=== PATIENT | male | born 1985 | race Two or more races ===

== ENCOUNTER 2025-07-30 17:45 | Emergency (ER) | payer BC, MEDICAID, SELFPAY ==
[2025-07-30 17:46] VITALS: BP 113/76; PULSE 87; RESP 18; TEMP 37.1; O2SAT 97
[2025-07-30 18:06] VITALS: PULSE 91; RESP 18; O2SAT 97
--- NOTE | 2025-07-30 18:07 | PC.NURSE ---
Pt. here from home to room 7 for possible blood coming from G tube, when parents gave feeding today.
--- NOTE | 2025-07-30 18:30 | PC.NURSE ---
Pt. father is bedside, pt. father has a syringe with brown liquid content in it. Pt. father states that pt. has had bleeding stomach ulcers and that's what the liquid looked like. Krunal informed and states he will come talk to pt.'s father.
--- NOTE | 2025-07-30 18:39 | PC.NURSE ---
Pt. has a small amount of dried blood to dressing at G tube site. Pt.'s father states pt. is bed bound, father states that pt. had a BM yesterday, father states he gives pt. a small enema and pt. has a BM.
--- NOTE | 2025-07-30 18:59 | EDNOTE_ITS ---
ED General RME/HPI General Chief complaint: GI Bleed Stated complaint: G TUBE ISSUES Time Seen by Provider: 07/30/25 17:59 Arrival date/time: 07/30/25 17:45 Brown GI tube feeds HPI patient is developmentally delayed nonverbal. Father brings the patient in via EMS who reports stable vital signs and the patient has dark stranding in his G-tube. The father is concerned because the last time they had this he had a GI bleed including ulcers . Patient is afebrile nontoxic-appearing. Father reports last BM last night was normal in color, patient usually has a BM every 1 to 3 days. Onset of color change in gastric tube content was this morning and this evening. Related Data Home Medications ?Medication ?Instructions ?Recorded ?Confirmed famotidine 20 mg tablet (Pepcid) 20 mg feeding tube BI D #0 tabs 08/02/14 07/30/24 glycopyrrolate 2 mg tablet 2 mg feeding tube TID #0 ta bs 08/02/14 07/30/24 (Fernanda Frias) levetiracetam 100 mg/mL oral 1,500 mg feeding tube BID ##0 08/02/14 07/30/24 solution (Keppra) valproic acid (as sodium salt) 250 250 mg GT BID Seizu res #600 mL 10/12/15 07/30/24 mg/5 mL oral solution (valproic acid) lactulose 10 gram/15 mL oral 15 ml feeding tube QDAY 0 03/03/23 07/30/24 solution (Constulose) constipation promethazine-DM 6.25 mg-15 mg/5 mL 10 ml feeding tube TID cough 03/03/23 07/30/24 oral syrup amoxicillin 875 mg-potassium 875 tab feeding tube BID 07/30/24 07/30/24 clavulanate 125 mg tablet midodrine 10 mg tablet 10 mg feeding tube QHSPRN 07/30/24 Previous Rx's ?Medication ?Instructions ?Recorded acetaminophen 325 mg/10.15 mL oral 650 mg (20.3 mL) GT QID PRN Fever 11/19/18 solution > 100.4 #240 mL Allergies Allergy/AdvReac Type Severity Reaction Status Date / Time phenobarbital Allergy Unknown Verified 07/30/24 20:26 Quinolones Allergy Unknown Verified 07/30/24 20:26 Review of Systems Review of Systems ROS Unobtainable: unobtainable due to mental status Past Medical History Past Medical History NEUROLOGIC: Positive Seizures, Epilepsy and Cerebral Palsy CARDIAC: Positive Cardiac Disorders and Hypotension; Negative Congestive Heart Failure RESPIRATORY: Negative Chronic Obstructive Pulmonary Disease (COPD) or Asthma GASTROINTESTINAL: Positive Ulcer; Negative Gastrointestinal Disorders GENITOURINARY: Negative Genitourinary Disorders or Renal Disease MUSCULOSKELETAL: Negative Musculoskeletal Disorders ENT: Positive Blind ENDOCRINE: Negative Endocrine Disorders, Diabetes Mellitus Type 1 or Diabetes Mellitus Type 2 HEMATOLOGIC: Negative Blood Disorders or Sickle Cell Disease OTHER HISTORY: Positive Developmental Delay and Blood Transfusions Surgical History SURGICAL: Positive Abdominal Surgery and Gastrostomy; Negative Cardiac Surgery, Ear Surgery, Nephrectomy or Joint Replacement Social History SMOKING STATUS: Never smoker SECOND HAND EXPOSURE: No SUBSTANCE USE: does not use ED Exam Narrative Physical exam: [General: Appears not in any acute distress Head normocephalic HEENT: Within acceptable limits Neck is supple nontender Chest equal chest rise nontender to palpation Respiratory: Clear to auscultation no wheezes crackles or rubs CV: Rate rhythm is regular no murmurs rubs or clicks Abdomen is distended secondary to body habitus soft nontender no masses positive bowel sounds all 4 quadrants. Button G-tube in the left lower quadrant clean dry and intact small amount of erosion underneath the button tube with no exudate. Gastric contents pale brown to rust, very faintly guaiac positive. GI: Moderate rectal tone, vault is empty small amount of stool on the rectal wall is guaiac negative. Back: No CVA tenderness no spinous process tenderness from cervical spine thoracic and lumbar spine Skin: Intact no petechiae rash induration ulceration or crepitus Extremities: Flaccid secondary to condition. Neuro: Awake Course Course Course Narrative: At 1900 patient's case discussed with Dr. Galvan who wants labs to determine if the patient needs to be admitted or not cards are very faintly guaiac positive. Patient has unremarkable CBC with no leukocytosis or anemia. Discussed with Dr. Galvan states patient to follow-up outpatient basis. Unless there is severe bleeding get a referral to him. Quality Measures none Orders Category Date Time Status Saline [Insert IV] NOW Care 07/30/25 19:00 Active CBC Stat Lab 07/30/25 19:28 Completed CMP [Comprehensive Metabolic Panel] Stat Lab 07/30/25 19:28 Completed PT [Prothrombin Time with INR] Stat Lab 07/30/25 19:28 Completed PTT [Partial Thromboplastin Time] Stat Lab 07/30/25 19:28 Completed Vital Signs Vital signs: Vital Signs Temperature 98.8 F 07/30/25 17:46 Pulse Rate 87 07/30/25 17:46 Respiratory Rate 18 07/30/25 17:46 Blood Pressure 113/76 07/30/25 17:46 Pulse Oximetry (%) 97 07/30/25 17:46 Oxygen Delivery Method Room Air 07/30/25 17:46 Discharge Plan Plan Patient Disposition: HOME (Self Care) Patient condition on transfer: Stable Prescriptions/Referrals Prescriptions/Med Rec: No Action famotidine [Pepcid] 20 MG tablet 20 mg feeding tube BID Qty: 0 Patient Comments: TO SUPPRESS GASTRIC ACID SECRETION glycopyrrolate [Robinul Forte] 2 MG tablet 2 mg feeding tube TID Qty: 0 levetiracetam [Keppra] 100 MG/ML solution 1,500 mg feeding tube BID Qty: 0 valproic acid (as sodium salt) [valproic acid] 250 MG/5 ML solution 250 mg GT BID Qty: 600 acetaminophen 325 mg/10.15 mL Solution 650 mg GT QID PRN (Reason: Fever > 100.4) Qty: 240 0RF promethazine-DM 6.25-15 mg/5 mL syrup 10 ml feeding tube TID lactulose [Constulose] 10 gram/15 mL solution 15 ml feeding tube QDAY Patient Comments: TAKE 15 ML BY MOUTH ONCE DAILY FOR CONSTIPATION amoxicillin-pot clavulanate [Augmentin] 875-125 mg Tablet 875 tab feeding tube BID midodrine 10 mg Tablet 10 mg feeding tube QHSPRN Referrals: Balbir Castillo MD [Primary Care Provider, Family Practice] - In 1 week Ruben Galvan MD [Physician, Gastroenterology] - In 1 week Problem List Clinical Impression: History of gastric ulcer Patient/Caregiver Discharge Instructions Other Activity Instructions:: Watch the PEG tube, if there is bright red blood in large quantities return to the emergency room otherwise follow-up with your primary care doctor and get a referral to the above-mentioned GI specialist. Print Language: Sinhala Stand Alone Forms: Jayshree Award Info., Work/School Release, Patient Portal Info Letter PA/UTILIZATION MANAGER Supervising Physician ANGEL/UTILIZATION MANAGER Supervising Physician: Krunal Leung ENP [facility] Clinical Information Provided by patient, EMS and parent Medical Records Reviewed [facility] Meds/Rx Considered, not Ordered None Labs/Rad/Tests considered, not Ordered None Chronic Illness/Social Conditions Add or document further as needed: Cerebral palsy developmental delay. EKG EKG not done Lab Interpretation Lab(s) interpretation(s): CBC shows a mild leukocytosis 11.8 H&H within normal limits. Platelet count of 240. Coags within acceptable limits CMP shows no acute electrolyte imbalances no renal impairment transaminitis or T. bili elevation. Imaging Imaging interpretation: none Medication Administration(s) none Diagnosis Differential dx and/or dx ruled out: Upper GI bleed lower GI bleed, button G-tube bleeding Most likely dx, and/or detailed dx discussion: Button G-tube bleeding Dispositon Disposition: Discharge Home
[2025-07-30 19:30] VITALS: BP 116/75; PULSE 87; RESP 18; TEMP 37; O2SAT 96
[2025-07-30 19:41] LABS: Basophils # (Auto) 0.1 Thou/mm3 (0.0-0.2); Basophils % (Auto) 1 % (0-2.5); Eosinophils # (Auto) 0.0 Thou/mm3 (0.0-0.5); Eosinophils % (Auto) 0 % (0-10); Hematocrit 44.0 % (41.0-53.0); Hemoglobin 14.6 g/dL (13.5-16.0); Immature Granulocytes Auto 0.47 Thou/mm3 (0.00-0.00); Lymphocytes # (Auto) 3.9 Thou/mm3 (1.0-4.8); Lymphocytes % (Auto) 33 % (10-50); Mean Corpuscular HGB Conc 33.2 g/dl (31.0-37.0); Mean Corpuscular Hemoglobin 29.4 pg (25.0-35.0); Mean Corpuscular Volume 89 fL (80-100); Monocytes # (Auto) 1.1 Thou/mm3 (0.0-0.8); Monocytes % (Auto) 9 % (0-12); Neutrophils # (Auto) 6.2 Thou/mm3 (1.8-7.7); Neutrophils % (Auto) 53 % (37-80); Nucleated Red Blood Cell # 0.03 Thou/mm3 (0.00-0.00); Nucleated Red Blood Cell % 0 /100 WBC (0); Platelet Count 240 Thou/mm3 (140-440); RDW Standard Deviation 39.7 fL (35.1-43.9); Red Blood Count 4.97 Miln/mm3 (4.50-5.90); White Blood Count 11.8 Thou/mm3 (3.8-10.6)
[2025-07-30 20:05] LABS: INR 1.1 (0.9-1.3); Partial Thromboplastin Time 26.3 Seconds (22.0-36.0); Prothrombin Time 11.9 Seconds (9.0-12.2)
[2025-07-30 20:12] LABS: Alanine Aminotransferase 8 U/L (10-49); Albumin, Serum 4.3 gm/dL (3.5-5.0); Albumin/Globulin Ratio 1.2 (1.2-2.2); Alkaline Phosphatase 89 U/L (46-116); Anion Gap 10 (7-16); Aspartate Amino Transferase 16 U/L (0-34); BUN/Creatinine Ratio 16 Ratio (12-20); Bilirubin,Total 0.5 mg/dL (0.3-1.2); Blood Urea Nitrogen 11 mg/dL (9-23); Calcium 9.7 mg/dL (8.3-10.6); Calcium (Corrected) 9.7 mg/dL (8.5-10.1); Carbon Dioxide 28.5 mMol/L (20.0-31.0); Chloride 99 mMol/L (98-107); Creatinine (Component) 0.7 mg/dL (0.6-1.3); Globulin 3.6 gm/dL (2.3-3.5); Glucose 100 mg/dL (74-106); Osmolality,Calculated 273 (275-295); Potassium 4.3 mMol/L (3.4-5.1); Sodium 137 mMol/L (136-145); Total Protein 7.9 gm/dL (5.7-8.2); eGFR > 60 See Note
[2025-07-30 20:35] VITALS: BP 106/76; PULSE 95; RESP 20; TEMP 36.4; O2SAT 96
[2025-07-30 20:44] VITALS: BP 108/78; PULSE 88; RESP 18; TEMP 36.4; O2SAT 96
== END 2025-07-30 20:47 | disposition home or self-care (01) ==
PROVIDERS: Registered Nurse General Practice; Emergency Provider Emergency Medicine; PCP Family Medicine
DX: Z43.1 Encounter for attention to gastrostomy (principal); Z87.11 Personal history of peptic ulcer disease
CPT/HCPCS: 36415; 80053; 85025; 85610; 85730; 99283

== ENCOUNTER 2025-09-11 10:38 | Inpatient (IN) | payer BC, MEDICAID, SELFPAY ==
[2025-09-11] VITALS (11 sets, daily range): BP systolic 85–117; BP diastolic 57–75; PULSE 69–144; RESP 16–28; TEMP 36.2–39.7; O2SAT 85–97; BMI 20.7
--- NOTE | 2025-09-11 10:45 | PC.NURSE ---
Pt. here from home to room 7, pt. father called EMS for pt. being SOB since yesterday, pt. is SOB, non verbal, contracted and bed ridden. Pt. has a Gtube to left mid abdomen, pt. is hot to touch.
--- NOTE | 2025-09-11 10:51 | EKG_ITS ---
[facility] Test Date: 2025-09-11 Pat Name: NISHANT WHITEHEAD Department: Room: - Gender: Male Strawberry Grower: : 1985 Requested By: Krunal Aragon Order Number: [id number] Reading MD: Krunal Aragon Measurements Intervals Kipling Rate: 127 P: 34 NH: 100 QRS: 86 QRSD: 79 T: 63 QT: 290 QTc: 423 Interpretive Statements SINUS TACHYCARDIA WITH SHORT NH INTERVAL POSSIBLE LATERAL MYOCARDIAL INFARCTION , PROBABLY OLD [30 ms Q WAVE IN I/aVL/V5/V6] ABNORMAL RHYTHM ECG Compared to ECG 03/03/2023 22:08:50 Short NH interval now present Myocardial infarct finding still present /store/S0/[id number]/ecg/[id number].pdf
--- NOTE | 2025-09-11 10:51 | XR_ITS ---
EXAMINATION: AP chest single view TECHNIQUE: AP portable semiupright chest single view Date and time: September 11, 2025, 1116 hours, comparison September 05, 2024 INDICATIONS: Shortness of breath today. FINDINGS: Suspicious for early bilateral perihilar pneumonia. Normal heart size Prominent osteopenia IMPRESSION: Suspicious for early bilateral perihilar pneumonia
--- NOTE | 2025-09-11 10:57 | EDNOTE_ITS ---
ED General RME/HPI General Chief complaint: Shortness of Breath/Dyspnea Stated complaint: SOB Time Seen by Provider: 09/11/25 10:50 Arrival date/time: 09/11/25 10:38 CC: Wet cough fever HPI patient presents to the ER via EMS who report 85% oxygen saturations on room air. The patient is significantly developmentally delayed with cerebral palsy seizure disorder and left eye blindness who is coming to us from home who his family member noticed the symptoms starting yesterday. EMS report putting him on 4 L nasal cannula which bumped his oxygen saturations to 91 to 92%. Related Data Home Medications ?Medication ?Instructions ?Recorded ?Confirmed famotidine 20 mg tablet (Pepcid) 20 mg feeding tube BI D #0 tabs 08/02/14 07/30/24 glycopyrrolate 2 mg tablet 2 mg feeding tube TID #0 ta bs 08/02/14 07/30/24 (Fernanda Frias) levetiracetam 100 mg/mL oral 1,500 mg feeding tube BID ##0 08/02/14 07/30/24 solution (Keppra) valproic acid (as sodium salt) 250 250 mg GT BID Seizu res #600 mL 10/12/15 07/30/24 mg/5 mL oral solution (valproic acid) lactulose 10 gram/15 mL oral 15 ml feeding tube QDAY 0 03/03/23 07/30/24 solution (Constulose) constipation promethazine-DM 6.25 mg-15 mg/5 mL 10 ml feeding tube TID cough 03/03/23 07/30/24 oral syrup amoxicillin 875 mg-potassium 875 tab feeding tube BID 07/30/24 07/30/24 clavulanate 125 mg tablet midodrine 10 mg tablet 10 mg feeding tube QHSPRN 07/30/24 Previous Rx's ?Medication ?Instructions ?Recorded acetaminophen 325 mg/10.15 mL oral 650 mg (20.3 mL) GT QID PRN Fever 11/19/18 solution > 100.4 #240 mL Allergies Allergy/AdvReac Type Severity Reaction Status Date / Time phenobarbital Allergy Unknown Verified 09/11/25 10:51 Quinolones Allergy Unknown Verified 09/11/25 10:51 Review of Systems Review of Systems ROS Unobtainable: unobtainable due to mental status Past Medical History Past Medical History NEUROLOGIC: Positive Seizures, Epilepsy and Cerebral Palsy CARDIAC: Positive Cardiac Disorders and Hypotension; Negative Congestive Heart Failure RESPIRATORY: Negative Chronic Obstructive Pulmonary Disease (COPD) or Asthma GASTROINTESTINAL: Positive Ulcer; Negative Gastrointestinal Disorders GENITOURINARY: Negative Genitourinary Disorders or Renal Disease MUSCULOSKELETAL: Negative Musculoskeletal Disorders ENT: Positive Blind ENDOCRINE: Negative Endocrine Disorders, Diabetes Mellitus Type 1 or Diabetes Mellitus Type 2 HEMATOLOGIC: Negative Blood Disorders or Sickle Cell Disease OTHER HISTORY: Positive Developmental Delay and Blood Transfusions Surgical History SURGICAL: Positive Abdominal Surgery and Gastrostomy; Negative Cardiac Surgery, Ear Surgery, Nephrectomy or Joint Replacement Social History SMOKING STATUS: Never smoker SECOND HAND EXPOSURE: No SUBSTANCE USE: does not use ED Exam Narrative Physical exam: [General: Appears in discomfort Head normocephalic HEENT: Eyes: Right pupil is PERRLA, left eye is blind with opaque lens. Mouth pink dry membranes mouth breathing. Nose no rhinorrhea ears no otorrhea Neck: No LAD, no edema. Chest equal chest rise nontender to palpation Respiratory: Clear to auscultation no wheezes crackles or rubs CV: Rate rhythm is regular no murmurs rubs or clicks Abdomen is distended secondary to body habitus soft nontender no masses positive bowel sounds all 4 quadrants Back: No CVA tenderness no spinous process tenderness from cervical spine thoracic and lumbar spine Skin: Intact no petechiae rash induration ulceration or crepitus Extremities: Moving all extremity against resistance cap refill less than 2 seconds neurosensory intact Neuro: Awake alert oriented x3 Glascow coma 15 no focal deficits] Course Course Course Narrative: Review of the laboratories alts shows a leukocytosis sepsis with bilateral pneumonia. Patient is loaded with Keppra to prevent any seizures, cefepime was ordered as IV antibiotics secondary to sputum culture for Pseudomonas and his last admission for pneumonia in February 2025. The patient's clinical presentation laboratory findings and imaging discussed with Dr. Mcqueen attending, who agrees to accept the patient for admission. Quality Measures none Orders Category Date Time Status Bedside COVID-19 Antigen Test NOW Care 09/11/25 11:44 Active Head Rose Grower STAT Care 09/11/25 10:51 Active Continuous Pulse Oximetry STAT Care 09/11/25 10:51 Completed EKG (ED ONLY) *Do not use* NOW Care 09/11/25 10:51 Completed In and Out Catheter X1PRN Care 09/11/25 10:51 Completed Insert IV NOW Care 09/11/25 10:51 Active NPO STAT Care 09/11/25 10:51 Active Oronasopharyngeal suction PRN Care 09/11/25 11:00 Active Strict Intake and Output Routine Care 09/11/25 10:51 Ordered EKG (ED Only) Stat Exams 09/11/25 10:51 Draft XR chest 1V SEPSIS PROTOCOL Stat Exams 09/11/25 10:51 Completed ABG [Arterial Blood Gas] Stat Lab 09/11/25 11:11 Ordered B-Type Natriuretic Peptide Stat Lab 09/11/25 11:19 Completed Blood Culture (Lab) Stat Lab 09/11/25 11:19 Received CBC Stat Lab 09/11/25 11:19 Completed Comprehensive Metabolic Panel Stat Lab 09/11/25 11:19 Completed Influenza A & B Rapid Panel Stat Lab 09/11/25 11:44 Ordered LDH (Lactate Dehydrogenase) Stat Lab 09/11/25 11:19 Completed Lactate (Lactic Acid) Stat Lab 09/11/25 11:19 Results Lipase Stat Lab 09/11/25 11:19 Completed Magnesium Stat Lab 09/11/25 11:19 Completed Partial Thromboplastin Time Stat Lab 09/11/25 11:19 Completed Phosphorous Stat Lab 09/11/25 11:19 Completed Procalcitonin Stat Lab 09/11/25 11:19 Completed Prothrombin Time with INR Stat Lab 09/11/25 11:19 Completed Troponin I Stat Lab 09/11/25 11:19 Completed Urinalysis, C/S if Indicated Stat Lab 09/11/25 11:00 Received Acetaminophen Ivpb [Ofirmev Inj] Med 09/11/25 10:52 Discontinued 1,000 mg in 100 ml IV NOW Albuterol/Ipratr Rt Lisset [Duoneb Rt Lisset] Med 09/11/25 10:55 Discontinued 3 ml INH X1 ONE Cefepime Inj [Maxipime Inj] 1 gm Med 09/11/25 10:58 Discontinued SODIUM CHLORIDE 0.9% (Popper) [Ns 0.9% (P)] 50 ml IV X1 Ringers Lactated 1000 ml [Lactated Ringers] 1,845 ml Med 09/11/25 10:51 Discontinued IV 1,845 mls/hr cefTRIAXone/D5w 1gm IV premix [Rocephin/D5w 1gm IV Med 09/11/25 10:51 Discontinued premix] 50 ml IV X1 levETIRAcetam INJ [Keppra Inj] Med 09/11/25 10:53 Discontinued 1,500 mg IVP X1 ONE Oxygen Delivery NOW RT 09/11/25 10:51 Active Oxygen Delivery NOW RT 09/11/25 10:55 Active Vital Signs Vital signs: Vital Signs Temperature 103.4 F H 09/11/25 10:44 Pulse Rate 128 H 09/11/25 10:44 Respiratory Rate 25 H 09/11/25 10:44 Blood Pressure 94/69 09/11/25 10:44 Pulse Oximetry (%) 87 L 09/11/25 10:44 Oxygen Delivery Method Room Air 09/11/25 10:44 Discharge Plan Plan Patient Disposition: Other Care w/in Hosp ([facility]) Patient condition on transfer: Stable Prescriptions/Referrals Prescriptions/Med Rec: No Action famotidine [Pepcid] 20 MG tablet 20 mg feeding tube BID Qty: 0 Patient Comments: TO SUPPRESS GASTRIC ACID SECRETION glycopyrrolate [Robinul Forte] 2 MG tablet 2 mg feeding tube TID Qty: 0 levetiracetam [Keppra] 100 MG/ML solution 1,500 mg feeding tube BID Qty: 0 valproic acid (as sodium salt) [valproic acid] 250 MG/5 ML solution 250 mg GT BID Qty: 600 acetaminophen 325 mg/10.15 mL Solution 650 mg GT QID PRN (Reason: Fever > 100.4) Qty: 240 0RF promethazine-DM 6.25-15 mg/5 mL syrup 10 ml feeding tube TID lactulose [Constulose] 10 gram/15 mL solution 15 ml feeding tube QDAY Patient Comments: TAKE 15 ML BY MOUTH ONCE DAILY FOR CONSTIPATION amoxicillin-pot clavulanate [Augmentin] 875-125 mg Tablet 875 tab feeding tube BID midodrine 10 mg Tablet 10 mg feeding tube QHSPRN Referrals: Balbir Castillo MD [Primary Care Provider, Family Practice] - In 1 week Problem List Clinical Impression: Pneumonia, Sepsis Patient/Caregiver Discharge Instructions Print Language: Saudi Arabian Stand Alone Forms: Jayshree Award Info., Patient Portal Info Letter PA/FARMWORKER GENERAL Supervising Physician PA/FARMWORKER GENERAL Supervising Physician: Krunal Leung ENP [facility] Clinical Information Provided by: patient and EMS Medical Records reviewed [facility] and EMS Meds/Rx considered, not ordered None Labs/Rad/Tests considered, not ordered None Chronic Illness/Social Conditions Explain: Cerebral palsy developmental delay gastric ulcer left eye blindness seizure disorder EKG Interpretation EKG #1: EKG Interpretation: EKG performed at 1055 shows a ventricular rate of 127 GA interval 100 QRS of 79 QTc of 365 is sinus tachycardia. Labs Labs: interpreted by me Lab(s) Interpretation(s): CBC shows leukocytosis of 12.8 no anemia or thrombocytopenia Coags within acceptable limits CMP shows no significant electrolyte imbalances other than a glucose of 26, no renal impairment no transaminitis or T. bili elevation Lactic at 2.7 Procalcitonin 0.94 Lipase of 22 Troponin and BNP are unremarkable Imaging Imaging interpretation: interpreted by me Imaging Interpretation(s): Chest x-ray is read as suspicious for bilateral pneumonia. Medication Administration(s) Medication Administration History Discontinued Medications Albuterol/Ipratropium (Albuterol/Ipratropium (Duoneb) Rt Lisset 3 Ml Nebu) 3 ml INH X1 ONE Stop: 09/11/25 10:56 Last Admin: 09/11/25 11:24 Dose: 3 ml Documented By: MW Lactated Ringer's (Lactated Ringers) 1,845 mls @ 1,845 mls/hr 30 ml/kg infuse over 60 min (1845 ml) IV .Q1H ONE Stop: 09/11/25 11:50 Last Admin: 09/11/25 11:12 Dose: 1,845 mls/hr Documented By: ED Ceftriaxone Sodium/Dextrose (Rocephin/D5w 1gm Iv Premix) 50 mls @ 100 mls/hr IV X1 ONE Stop: 09/11/25 11:20 Acetaminophen (Ofirmev Inj) 1,000 mg in 100 mls @ 250 mls/hr IV NOW ONE Stop: 09/11/25 11:15 Last Admin: 09/11/25 11:37 Dose: 250 mls/hr Documented By: ED Cefepime HCl 1 gm/ Sodium (Chloride) 50 mls @ 100 mls/hr IV X1 ONE Stop: 09/11/25 11:27 Levetiracetam (Levetiracetam Inj 100 Mg/Ml Vial 5ml) 1,500 mg IVP X1 ONE Stop: 09/11/25 10:54 Last Admin: 09/11/25 11:44 Dose: 1,500 mg Documented By: ED
[2025-09-11] MEDS: ALBUTEROL/IPRATROPIUM (Duoneb) RT SOL 3 ML NEBU INH ×4 (11:24→22:49)
[2025-09-11 11:26] LABS: Lactate (Lactic Acid) 2.7 mMol/L (0.4-2.0)
[2025-09-11 11:27] LABS: Basophils # (Auto) 0.1 Thou/mm3 (0.0-0.2); Basophils % (Auto) 0 % (0-2.5); Eosinophils # (Auto) 0.0 Thou/mm3 (0.0-0.5); Eosinophils % (Auto) 0 % (0-10); Hematocrit 44.4 % (41.0-53.0); Hemoglobin 14.5 g/dL (13.5-16.0); Immature Granulocytes Auto 0.06 Thou/mm3 (0.00-0.00); Lymphocytes # (Auto) 2.2 Thou/mm3 (1.0-4.8); Lymphocytes % (Auto) 17 % (10-50); Mean Corpuscular HGB Conc 32.7 g/dl (31.0-37.0); Mean Corpuscular Hemoglobin 29.5 pg (25.0-35.0); Mean Corpuscular Volume 90 fL (80-100); Monocytes # (Auto) 2.6 Thou/mm3 (0.0-0.8); Monocytes % (Auto) 20 % (0-12); Neutrophils # (Auto) 7.9 Thou/mm3 (1.8-7.7); Neutrophils % (Auto) 62 % (37-80); Nucleated Red Blood Cell # 0.00 Thou/mm3 (0.00-0.00); Nucleated Red Blood Cell % 0 /100 WBC (0); Platelet Count 146 Thou/mm3 (140-440); RDW Standard Deviation 42.8 fL (35.1-43.9); Red Blood Count 4.92 Miln/mm3 (4.50-5.90); White Blood Count 12.8 Thou/mm3 (3.8-10.6)
[2025-09-11] MEDS: ACETAMINOPHEN IVPB 1,000 MG/100 ML VIAL 250 MG IV (11:37)
[2025-09-11] MEDS: levETIRAcetam INJ 100 MG/ML VIAL 5ML 1500 MG IVP ×2 (11:44→21:08)
[2025-09-11 11:45] LABS: B-Type Natriuretic Peptide 49 pg/mL (0-100)
[2025-09-11 11:49] LABS: Collection Type, Urine Clean Catch
[2025-09-11 11:54] LABS: INR 1.1 (0.9-1.3); Partial Thromboplastin Time 30.5 Seconds (22.0-36.0); Prothrombin Time 11.9 Seconds (9.0-12.2)
[2025-09-11 11:58] LABS: Alanine Aminotransferase < 7 U/L (10-49); Albumin, Serum 4.4 gm/dL (3.5-5.0); Albumin/Globulin Ratio 1.3 (1.2-2.2); Alkaline Phosphatase 67 U/L (46-116); Anion Gap 12 (7-16); Aspartate Amino Transferase 22 U/L (0-34); BUN/Creatinine Ratio 18 Ratio (12-20); Bilirubin,Total 0.7 mg/dL (0.3-1.2); Blood Urea Nitrogen 23 mg/dL (9-23); Calcium 9.3 mg/dL (8.3-10.6); Calcium (Corrected) 9.3 mg/dL (8.5-10.1); Carbon Dioxide 24.5 mMol/L (20.0-31.0); Chloride 101 mMol/L (98-107); Creatinine (Component) 1.3 mg/dL (0.6-1.3); Estimated Creatinine Clearance 61.0 mL/min (>60); Globulin 3.4 gm/dL (2.3-3.5); Glucose 126 mg/dL (74-106); LDH (Lactate Dehydrogenase) 174 U/L (120-246); Magnesium 2.1 mg/dL (1.6-2.6); Osmolality,Calculated 279 (275-295); Phosphorous 1.9 mg/dL (2.4-5.1); Potassium 4.1 mMol/L (3.4-5.1); Sodium 137 mMol/L (136-145); Total Protein 7.8 gm/dL (5.7-8.2); Troponin I < 0.020 ng/mL (0.0-0.045); eGFR > 60 See Note
[2025-09-11 11:59] LABS: Lipase 22 U/L (12-53); Procalcitonin 0.94 ng/ml (0.0-0.49)
[2025-09-11 12:03] LABS: Bacteria,Urine Rare; Bilirubin,Urine 1+ (Negative); Blood,Urine Negative (Negative); Color,Urine Drk-Yellow (Lt Yel-Yel); Culture Indicated,Urine Not Indicated; Glucose, Urine Negative (Negative); Ketones,Urine Negative (Negative); Leukocyte Esterase,Urine Negative (Negative); Nitrite,Urine Negative (Negative); PH,Urine 6.5 (5.0-7.0); Protein,Urine 1+ (Neg - Trace); RBC,Urine 9 /hpf (0-3); Specific Gravity,Urine 1.025 (1.001-1.035); Squamous Epithelial Cell,Urine < 1 /hpf (0-5); Urobilinogen,Urine 4.0 mg/dL (0.0-1.0); WBC,Urine 4 /hpf (0-5)
[2025-09-11] MEDS: CEFEPIME INJ 1 GM in SODIUM CHLORIDE 0.9% (Popper) 50 ML IV ×2 (12:04→13:59)
[2025-09-11 12:10] LABS: Clarity,Urine Hazy (Clear/Hazy)
[2025-09-11 12:41] LABS: Base Excess, Venous 0 (-3-3); O2 Saturation, Venous 83 % (96-97); PCO2, Venous 43 mmHg (36-56); PO2, Venous 49 mmHg (15-58); pH, Venous 7.38 (7.33-7.66)
[2025-09-11 13:11] LABS: Influenza A Ag Negative; Influenza B Ag Negative
--- NOTE | 2025-09-11 13:32 | ESHP_ITS ---
<Statement entered by Erickson Hernandez MD - 09/11/25 17:01> I have reviewed the note and agree with the resident's assessment & plan with exceptions as below. I have personally reviewed labs, imaging, home meds/prior records, examined the patient, formulated and discussed management plan with my attending 34-year-old male with past medical history of developmental delay, seizure disorders, left eye blindness, gastric ulcers, PEG tube, and cerebral palsy was admitted to the hospital on 09/11/2025 for concern for sepsis and acute hypoxic respiratory failure likely secondary to community-acquired pneumonia versus aspiration or pneumonia. Spoke with patient's mother through the phone as patient is nonverbal at baseline and she stated that around 2 days ago patient started coughing and his breathing sounded worse and that today he spiked a fever and they decided to bring him to the ER. Patient in the past has had sputum cultures and tracheal cultures which have both grown Pseudomonas therefore we will start patient on cefepime and azithromycin. Otherwise patient got sepsis boluses and does not seem to be hypoperfusing. Will repeat lactic acid and will follow-up on cultures as well. In summary: #Concern for sepsis #Acute hypoxic respiratory failure #Community-acquired pneumonia #Lactic acidosis Will continue to trend lactic Patient got 1.8 L of IV fluids in the ER Will start patient on cefepime and azithromycin. Will get sputum and blood cultures. Breathing treatments every 4 hours. Erickson Hernandez PGY2 Disclaimer: Even though this this note was dictated by speech recognition and even though it was carefully revised there may still be minor errors in obstetrical tech due to voice recognition software. Documentation for date of: 09/11/25 HPI History of Present Illness Chief complaint: Shortness of breath History of present illness: History of present illness: Patient is a 34 year old man with PMH of cerebral palsy (nonverbal), developmental delay, seizures, hypertension, GERD, left eye blindness, PEG tube, presenting to the ED on 09/11/25 for shortness of breath. Since yesterday morning, patient has had pneumonia-like symptoms (breathing issues, cough and febrile) per father, with O2 sats down to 83 on room air and BP down to 94/70 (normally 120/60-70) at home. Per father, he has had similar symptoms before. Of note, chart review revealed multiple instances of admission for acute hypoxic respiratory failure in which cultured samples (ET secretions 03/08, Sputum 03/07) showed Pseudomonas. ED course: Patient presented with O2 sats of 85% in ED; increased to 91-92% on 4L NC. Tachycardiac (128), tachypnic (25), and febrile (103.4) on admission. Labs show leukocytosis (12.8), lactate of 2.7, and Pro-Juwan is 0.94. Creatinine is 1.3 from patients previous baseline of 0.7, indicating acute kidney injury. CXR shows bilateral perihilar pneumonia. EKG shows sinus tachycardia with short PC interval. Bladder catheterization shows 15mL urine. ED exam shows tachypnea with labored shallow breaths. Patient given 1.8 L LR, loading dose of Keppra 1.5 g, DuoNebs, and cefepime in the ED. Patient admitted for sepsis in context of bilateral pneumonia. PMH: Cerebral palsy, developmental delay, seizures, hypertension, GERD PSH: Gastric tube placement, hip surgery at Allergies: phenobarbital, quinolones Social history: No alcohol, drugs, or tobacco Review of Systems Review of Systems Narrative Review of Systems: Note: all ROS taken from father as patient is nonverbal General: Denies fevers or chills HEENT: Denies congestion or sore throat Heart: Denies chest pain or palpitations Lungs: Endorses shortness of breath Abdomen: Denies diarrhea, nausea or vomiting, constipation, BRBPR, melena, has gastric tube placed Genitourinary: Denies frequency, urgency, dysuria, hematuria Musculoskeletal: Denies joint pain, denies muscular pain; bilteral contractures Neurology: Denies numbness, tingling; endorses cerebral palsy, developmental delay, seizure disorder ROS otherwise negative except what is mentioned above. Exam Vital Signs Temp Pulse Resp BP Pulse Ox O2 Del Method O2 Flow Rate 103.4 F H 82 16 94/69 92 L Room Air 10 09/11/25 10:44 09/11/25 11:24 09/11/25 11:24 09/11/25 10:44 09/11/25 11:24 09/11/25 10:44 09/11/25 11:24 Narrative Exam General: A/O x3, no acute distress, well-nourished, cerebral palsy, developmental delay, nonverbal at baseline Eyes: R pupil ERRL, L eye blindness, remaining vision grossly intact. Ears: No ear pain, no ear discharge, Hearing grossly intact. Nose: No nasal discharge. Mouth/Throat: Moist mucous membranes, no redness, no lesions. Neck: Neck supple, non-tender, no cervical lymphadenopathy. Lungs: bilateral upper lobe crackles, No accessory muscle use. Cardio: Normal S1/S2, regular rhythm, no murmurs, no JVD or carotid bruits. Abdomen: Soft, non-tender, no palpable masses, peristalsis present, no guarding or rebound. G tube present. Extremities: Contractures present bilaterally, no peripheral edema , non-tender, peripheral pulses present. Skin: No rashes, no lesions, warm to touch. Neuro: No change for neurological baseline. Psych: Developmental delay; nonverbal at baseline, unable to assess Results: Labs 09/12/25 05:10 09/12/25 05:10 Labs: Short CBC 09/11/25 Range/Units 11:19 WBC 12.8 H (3.8-10.6) Thou/mm3 Hgb 14.5 (13.5-16.0) g/dL Hct 44.4 (41.0-53.0) % Plt Count 146 (140-440) Thou/mm3 BMP 09/11/25 11:19 Sodium 137 Potassium 4.1 Chloride 101 Carbon Dioxide 24.5 BUN 23 Creatinine 1.3 Glucose 126 H Calcium 9.3 Cardiac Enzymes 09/11/25 Range/Units 11:19 Troponin I < 0.020 (0.0-0.045) ng/mL Liver Function 09/11/25 Range/Units 11:19 Total Bilirubin 0.7 (0.3-1.2) mg/dL AST 22 (0-34) U/L ALT < 7 L (10-49) U/L Alkaline Phosphatase 67 (46-116) U/L Albumin 4.4 (3.5-5.0) gm/dL Urine 09/11/25 Range/Units 11:00 Urine Color Drk-Yellow A (Lt Yel-Yel) Urine Clarity Hazy (Clear/Hazy) Urine pH 6.5 (5.0-7.0) Ur Specific [place] 1.025 (1.001-1.035) Urine Protein 1+ A (Neg - Trace) Urine Glucose (UA) Negative (Negative) ABG Interpretation ABG results: 09/11/25 12:35 VBG pH 7.38 VBG pCO2 43 VBG pO2 49 VBG Base Excess 0 Quality Measures Quality Measures none Medications Home Medications and Allergies Home Medications ?Medication ?Instructions ?Recorded ?Confirmed ?Type famotidine 20 mg tablet (Pepcid) 20 mg feeding tube BI D #0 tabs 08/02/14 09/11/25 History glycopyrrolate 2 mg tablet 2 mg feeding tube TID #0 ta bs 08/02/14 09/11/25 History (Robinul Forte) levetiracetam 100 mg/mL oral 1,500 mg feeding tube BID ##0 08/02/14 09/11/25 History solution (Keppra) valproic acid (as sodium salt) 250 875 mg G-tube BID S eizures #600 mL 10/12/15 09/12/25 History mg/5 mL oral solution (valproic acid) lactulose 10 gram/15 mL oral 15 ml feeding tube QDAY 0 03/03/23 09/11/25 History solution (Constulose) constipation furosemide 20 mg tablet 20 mg feeding tube .Q12pm 09/11/25 History metoprolol succinate 50 mg 50 mg PO QDAY 09/11/2508/17 History tablet,extended release 24 hr potassium chloride 8 mEq 8 meq feeding tube .Q12pm 09/11/25 History capsule,extended release midodrine 10 mg tablet 10 mg feeding tube HS PRN LO W 09/12/25 09/12/25 History BLOOD PRESSURE Allergies Allergy/AdvReac Type Severity Reaction Status Date / Time phenobarbital Allergy Unknown Verified 09/11/25 10:51 Quinolones Allergy Unknown Verified 09/11/25 10:51 Visit Medications Discontinued Medications Albuterol/Ipratropium (Albuterol/Ipratropium (Duoneb) Rt Lisset 3 Ml Nebu) 3 ml INH X1 ONE Stop: 09/11/25 10:56 Last Admin: 09/11/25 11:24 Dose: 3 ml Lactated Ringer's (Lactated Ringers) 1,845 mls @ 1,845 mls/hr 30 ml/kg infuse over 60 min (1845 ml) IV .Q1H ONE Stop: 09/11/25 11:50 Last Admin: 09/11/25 11:12 Dose: 1,845 mls/hr Ceftriaxone Sodium/Dextrose (Rocephin/D5w 1gm Iv Premix) 50 mls @ 100 mls/hr IV X1 ONE Stop: 09/11/25 11:20 Acetaminophen (Ofirmev Inj) 1,000 mg in 100 mls @ 250 mls/hr IV NOW ONE Stop: 09/11/25 11:15 Last Infusion: 09/11/25 12:01 Dose: Infused Cefepime HCl 1 gm/ Sodium (Chloride) 50 mls @ 100 mls/hr IV X1 ONE Stop: 09/11/25 11:27 Last Admin: 09/11/25 12:04 Dose: 100 mls/hr Levetiracetam (Levetiracetam Inj 100 Mg/Ml Vial 5ml) 1,500 mg IVP X1 ONE Stop: 09/11/25 10:54 Last Admin: 09/11/25 11:44 Dose: 1,500 mg Assessment & Plan Plan Patient is a 39-year-old male with past medical history of cerebral palsy (nonverbal), developmental delay, seizures, hypertension, GERD, left eye blindness, presenting to the ED on 09/11/25 for shortness of breath. Patient admitted 09/11/25 for sepsis in context of bilateral pneumonia. # Acute hypoxic respiratory failure and # Sepsis secondary to # Pneumonia (community-acquired versus aspirational) Patient was brought to the ED with shortness of breath when he had O2 with 85% on room air, and required 4 L to reach 91 to 92%. Chest x-ray in ED showed bilateral perihilar pneumonia; exam reveals significant apical crackles bilaterally. Patient's WBC count was 12.8 on admission; combined with tachycardia at 128, tachypnea at 25, temperature of 103.4, lactate of 2.7, and DIDI (creatinine on admission is 1.3, his baseline is 0.7), patient meets criteria for sepsis with multiple organ dysfunction syndrome, as he had a temperature above 100.4 on admission, was tachycardic and tachypneic, and had WBCs above 12,000; he also has a suspected source of infection, lactic acidosis, and evidence of 2 organs failing (lactic acidosis, and DIDI via creatinine). Plan: Azithromycin 500 IV daily and cefepime 2 g IV every 8 hours for suspected sepsis Trend lactate, CBC, CMP, mag, and Phos Sputum, blood, and urine cultures DuoNebs and chest physiotherapy ordered #Seizures #Hypertension #GERD #Cerebral palsy #Developmental delay Patient is on valproic acid and Keppra at home for seizures, as well as furosemide 20 and metoprolol succinate 50 for blood pressure, and famotidine 20 for GERD. Plan: Restart home keppra and valproate Hold BP meds in the context of patient being normotensive; monitor BP Protonix 40 BID Disposition: MedTele DVT prophylaxis: heparin 5000 subcu q8h GI prophylaxis: protonix 40 BID Diet: NPO Lines: PIV CODE STATUS: Full code This case was discussed with my attending physician, Dr. Mcqueen, and senior resident, Dr. Baeza. Dlae Villafuerte MD-PhD, PGY1 Attending Provider Attestation/Addendum Lyle, Ghazal Mcqueen DO, attest that I was physically present for the street portions of the service and evaluated the patient with the resident and I reviewed and discussed the case with the resident and agree with the resident's findings and plans of care as documented above Patient is a 34-year-old male with past medical cerebral palsy, developmental delay, seizures, hypertension, GERD, left eye blindness and PEG tube dependence who was brought to the ED due to labored breathing and fever that began overnight. Patient is bedbound and lives with his parents who take care of him. Father states that he did not notice any recent seizure-like activity or episodes of aspiration. Patient had been noted to have O2 saturation of 83% on room air and blood pressure of 94/70. He is also noted to have audible rhonchi. Patient has had frequent hospitalizations in the past due to respiratory failure and pneumonia. Previous sputum cultures have been noted to be positive for Pseudomonas. In the ED, he was noted to be tachypneic, tachycardic and febrile with a temperature 103.4. He has a leukocytosis of 12.8 and a lactic acid of 2.7. Procalcitonin is 0.94. Father states that patient has not had any recent hospitalizations or sick contacts at home. Chest x-ray shows bibasilar pneumonia. On exam, patient is noted to have significant rhonchi, right greater than left. He has noted to have a mild pink rash on his right upper extremity which his father states that was not there previously. Suspect possible heat rash. Patient is warm to touch and diaphoretic. He is currently on 4 L oxygen mask patient unable to follow commands, but moves upper extremities spontaneously. Bilateral lower extremities are contracted and atrophied. PEG tube in place, clean dry and intact. Abdomen is soft and nontender. In the ED, patient received about 2 L of IV fluids and was loaded with his home dose of Keppra due to concern for seizure in the setting of hypoxia. Will admit patient to med/tele for further workup and medical management of acute hypoxic respiratory failure secondary to atypical versus gram-negative pneumonia. Will place patient on azithromycin and cefepime, particularly due to concern for Pseudomonas. Will continue to titrate O2 as tolerated. Will give breathing treatments every 4 hours as needed. Will continue with IV fluid hydration and repeat lactic acid.
[2025-09-11 14:25] LABS: Reflex Lactate? Y
[2025-09-11 14:57] LABS: Lactate (Lactic Acid) 3.4 mMol/L (0.4-2.0)
[2025-09-11] MEDS: AZITHROMYCIN INJ 500 MG in SODIUM CHLORIDE 0.9% 250 ML 250 ML 250 MG IV (16:14)
[2025-09-11] MEDS: HEPARIN SOD INJ 5000 UNIT/ML VIAL SC ×2 (17:29→21:08)
[2025-09-11 17:30] LABS: Lactate (Lactic Acid) 2.4 mMol/L (0.4-2.0)
[2025-09-11] MEDS: SODIUM CHLORIDE 0.9% 1000 ML 1,000 ML 999 ML IV ×2 (17:49→23:05)
[2025-09-11 17:53] LABS: Reflex Lactate? Y
[2025-09-11] MEDS: SODIUM CHLORIDE 0.9% 1000 ML 1,000 ML 75 ML IV (17:53)
--- NOTE | 2025-09-11 19:30 | PC.RT ---
sputum collected and sent to lab
[2025-09-11] MEDS: HYDROcodone/APAP 5/325 TABLET 1 TAB PO (19:34)
--- NOTE | 2025-09-11 20:00 | PC.NURSE ---
RESPIRATORY THERAPIST IN THE ROOM.
[2025-09-11 20:28] LABS: Reflex Lactate? Y
[2025-09-11] MEDS: CEFEPIME INJ 2 GM in SODIUM CHLORIDE 0.9% (Popper) 50 ML IV (21:08)
[2025-09-11 21:21] LABS: Path Review Blood Smear Sent to Pathologist
[2025-09-11 21:40] LABS: Lactate (Lactic Acid) 2.4 mMol/L (0.4-2.0)
--- NOTE | 2025-09-11 22:25 | PC.NURSE ---
DR. LYNCH MADE AWARE PTS HR 146 FOR A FEW SECONDS, LAST TWO LACTIC ACID DRAWS 2.4.
--- NOTE | 2025-09-11 23:14 | PC.NURSE ---
DR. LYNCH AT BEDSIDE, VERBAL ORDERS GIVEN, READ BACK AND CARRIED OUT.
[2025-09-12] VITALS (17 sets, daily range): BP systolic 91–139; BP diastolic 64–80; PULSE 111–155; RESP 7–120; TEMP 36.2–38.7; O2SAT 89–99; BMI 20.7
[2025-09-12 00:38] LABS: Reflex Lactate? Y
[2025-09-12 00:55] LABS: Lactate (Lactic Acid) 2.0 mMol/L (0.4-2.0)
[2025-09-12 01:21] LABS: Anion Gap 11 (7-16); BUN/Creatinine Ratio 20 Ratio (12-20); Blood Urea Nitrogen 10 mg/dL (9-23); Calcium 8.1 mg/dL (8.3-10.6); Carbon Dioxide 22.7 mMol/L (20.0-31.0); Chloride 111 mMol/L (98-107); Creatinine (Component) 0.5 mg/dL (0.6-1.3); Estimated Creatinine Clearance 158.6 mL/min (>60); Glucose 90 mg/dL (74-106); Osmolality,Calculated 287 (275-295); Potassium 4.6 mMol/L (3.4-5.1); Sodium 145 mMol/L (136-145); eGFR > 60 See Note
[2025-09-12] MEDS: ALBUTEROL/IPRATROPIUM (Duoneb) RT SOL 3 ML NEBU INH ×6 (03:05→23:46)
[2025-09-12] MEDS: CEFEPIME INJ 2 GM in SODIUM CHLORIDE 0.9% (Popper) 50 ML IV ×3 (05:03→23:17)
[2025-09-12] MEDS: HYDROcodone/APAP 5/325 TABLET 1 TAB PO (05:03)
[2025-09-12] MEDS: HEPARIN SOD INJ 5000 UNIT/ML VIAL SC ×3 (05:03→21:18)
[2025-09-12] MEDS: ACETAMINOPHEN IVPB 1,000 MG/100 ML VIAL 250 MG IV (05:20)
[2025-09-12 05:37] LABS: Lactate (Lactic Acid) 2.3 mMol/L (0.4-2.0)
[2025-09-12 05:46] LABS: Basophils # (Auto) 0.1 Thou/mm3 (0.0-0.2); Basophils % (Auto) 1 % (0-2.5); Eosinophils # (Auto) 0.0 Thou/mm3 (0.0-0.5); Eosinophils % (Auto) 0 % (0-10); Hematocrit 37.1 % (41.0-53.0); Hemoglobin 11.8 g/dL (13.5-16.0); Immature Granulocytes Auto 0.08 Thou/mm3 (0.00-0.00); Lymphocytes # (Auto) 1.5 Thou/mm3 (1.0-4.8); Lymphocytes % (Auto) 17 % (10-50); Mean Corpuscular HGB Conc 31.8 g/dl (31.0-37.0); Mean Corpuscular Hemoglobin 29.3 pg (25.0-35.0); Mean Corpuscular Volume 92 fL (80-100); Monocytes # (Auto) 1.6 Thou/mm3 (0.0-0.8); Monocytes % (Auto) 18 % (0-12); Neutrophils # (Auto) 5.8 Thou/mm3 (1.8-7.7); Neutrophils % (Auto) 64 % (37-80); Nucleated Red Blood Cell # 0.00 Thou/mm3 (0.00-0.00); Nucleated Red Blood Cell % 0 /100 WBC (0); Platelet Count 117 Thou/mm3 (140-440); RDW Standard Deviation 43.6 fL (35.1-43.9); Red Blood Count 4.03 Miln/mm3 (4.50-5.90); White Blood Count 9.1 Thou/mm3 (3.8-10.6)
--- NOTE | 2025-09-12 05:55 | XR_ITS ---
EXAMINATION: AP chest single view TECHNIQUE: AP portable semiupright chest single view Date and time: September 12, 2025, 0605 hours INDICATIONS: Shortness of breath today FINDINGS: Normal heart size Extensive bilateral perihilar right basilar pneumonia Prominent osteopenia Reduced inspiratory effort IMPRESSION: Extensive bilateral pneumonia
--- NOTE | 2025-09-12 05:55 | EKG_ITS ---
[facility] Test Date: 2025-09-12 Pat Name: NISHANT WHITEHEAD Department: Room: S356A Gender: Male Compensation Coordinator: RTAWILDA : 1985 Requested By: Tianna Jackson Order Number: [id number] Reading MD: Tianna Jackson Measurements Intervals [place] Rate: 139 P: CO: QRS: 10 QRSD: 79 T: 58 QT: 290 QTc: 442 Interpretive Statements ATRIAL FLUTTER/TACHYCARDIA WITH RAPID VENTRICULAR RESPONSE LOW QRS VOLTAGE IN EXTREMITY LEADS POSSIBLE LATERAL MYOCARDIAL INFARCTION , PROBABLY OLD ABNORMAL RHYTHM ECG Compared to ECG 09/11/2025 10:55:59 Low QRS voltage now present Sinus tachycardia no longer present Short CO interval no longer present Myocardial infarct finding still present /store/S0/[id number].pdf
--- NOTE | 2025-09-12 05:56 | PD.RESEVENT ---
Documentation for date of: 09/12/25 Event Note Event Note: Rapid response was called at 05:53 for tachycardia sustained 140s, labored breathing. VS: HR 138, BP 111/77, spO2 94% on 7L. Fever 102 F. Patient is lying in bed comfortably on Oxymask. Gave IV Tylenol 1 g at 05:20. Ordered: EKG, ABG, albuterol x1, troponin, CXR. Given Mg IV 2g. EKG showed sinus tachy 130s, looks similar to previous EKG. Plan discussed with Dr. Rogers and Dr. Jayleen Jackson MD PGY1
[2025-09-12 06:05] LABS: Base Excess 0 (-3-3); HCO3 26 mEq/L (20-26); O2 Saturation 96 % (91-98); PCO2 49 mmHg (32.0-48.0); PO2 80 mmHg (83-108); pH, Arterial 7.34 (7.35-7.45)
[2025-09-12 06:08] LABS: Allen Test Performed/OK; Inspired O2, VO2 Liters 8 L/min; Puncture Site Right Radial
[2025-09-12 06:35] LABS: Alanine Aminotransferase < 7 U/L (10-49); Albumin, Serum 3.4 gm/dL (3.5-5.0); Albumin/Globulin Ratio 1.2 (1.2-2.2); Alkaline Phosphatase 49 U/L (46-116); Anion Gap 10 (7-16); Aspartate Amino Transferase 22 U/L (0-34); BUN/Creatinine Ratio 17 Ratio (12-20); Bilirubin,Total 0.7 mg/dL (0.3-1.2); Blood Urea Nitrogen 10 mg/dL (9-23); Calcium 8.2 mg/dL (8.3-10.6); Calcium (Corrected) 8.7 mg/dL (8.5-10.1); Carbon Dioxide 25.4 mMol/L (20.0-31.0); Cardiac Risk Estimate 5.1 RATIO (4.0-6.7); Chloride 110 mMol/L (98-107); Cholesterol 72 mg/dL (132-200); Creatinine (Component) 0.6 mg/dL (0.6-1.3); Estimated Creatinine Clearance 132.1 mL/min (>60); Globulin 2.9 gm/dL (2.3-3.5); Glucose 82 mg/dL (74-106); HDL Cholesterol 14 mg/dL (40-60); LDL Cholesterol,Calculated 19 mg/dL (0-130); Magnesium 1.8 mg/dL (1.6-2.6); Osmolality,Calculated 286 (275-295); Phosphorous 3.2 mg/dL (2.4-5.1); Potassium 4.2 mMol/L (3.4-5.1); Sodium 145 mMol/L (136-145); Total Protein 6.3 gm/dL (5.7-8.2); Triglycerides 197 mg/dL (30-150); eGFR > 60 See Note
[2025-09-12 06:47] LABS: Troponin I < 0.020 ng/mL (0.0-0.045)
[2025-09-12] MEDS: levETIRAcetam INJ 100 MG/ML VIAL 5ML 1500 MG IVP ×2 (08:23→20:52)
[2025-09-12 08:34] LABS: Reflex Lactate? Y
[2025-09-12] MEDS: Magnesium Sulfate 2 GM Ivpb 2 GM/50 ML BAG IV (09:04)
[2025-09-12 09:17] LABS: Lactic Acid, 3 HR 2.7 mMol/L (0.4-2.0)
--- NOTE | 2025-09-12 10:38 | PC.DIETICIAN ---
Nutrition prescription When indicated, consider: Ensure Plus HP (vanilla) at 20 ml/hr via PEG tube by pump. Advance 10 ml every 8 hrs to goal rate of 40 ml/hr x 24 hrs. If no IV fluids, water flushes of 40 ml/hr (or per MD).
[2025-09-12] MEDS: VALPROIC ACID SYRUP 250 MG/5 ML UDC 875 MG GT ×2 (11:21→21:08)
[2025-09-12 12:41] LABS: Lactate (Lactic Acid) 1.3 mMol/L (0.4-2.0)
[2025-09-12] MEDS: guaiFENesin SYRUP 200 MG/10 ML UDC 100 MG GT ×2 (13:27→21:18)
--- NOTE | 2025-09-12 13:37 | PD.RESPRO ---
Documentation for date of: 09/12/25 Subjective Subjective Interval history: Patient was seen examined bedside this morning. Overnight patient had a rapid response called due to tachycardia and fever 102. Patient received IV Tylenol and lactic acid was ordered and EKG. This morning patient has not had fevers, but continues to be tachycardic. Placed patient on high flow nasal cannula she was saturating 89 to lower 90s on oxy mask at 11 L therefore transition to high flow nasal cannula. Patient's blood pressure has been stable and lactic acid has down trended. WBCs are downtrending. Patient's chest x-ray overnight that showed worsening patient's pneumonia, will get deep suctioning. No signs of fluid overload status on physical exam. Blood cultures have been noted in the first 24 hours, sputum culture still pending, but Gram stain did show WBCs and occasional GPC's and GNR's. Will continue with cefepime and azithromycin for now. Exam Vital Signs Temp Pulse Resp BP Pulse Ox O2 Del Method O2 Flow Rate 97.8 F 128 H 28 H 139/80 H 98 Oxy Mask 30 09/12/25 07:49 09/12/25 12:00 09/12/25 10:54 09/12/25 07:49 09/12/25 10:54 09/12/25 07:49 09/12/25 10:54 FiO2 80 09/12/25 10:54 Narrative Exam PE with RN, Alethea, at bedside. General: A/O x3, no acute distress, well-nourished, cerebral palsy, developmental delay, nonverbal at baseline Eyes: R pupil ERRL, L eye blindness with injected conjunctiva Ears: No o ear discharge, Hearing grossly intact. Nose: No nasal discharge. Mouth/Throat: Moist mucous membranes, no redness, no lesions. Neck: Neck supple, non-tender, no cervical lymphadenopathy. Lungs: Bilateral rales with audible upper airway congestion, No accessory muscle use. Cardio: Normal S1/S2, regular rhythm, no murmurs, no JVD Abdomen: Soft, non-tender, no palpable masses, peristalsis present, no guarding or rebound. G tube present. Extremities: Contractures present bilaterally, no peripheral edema , non-tender, peripheral pulses present. : No scrotal swelling Skin: No rashes, no lesions, warm to touch. Neuro: No change for neurological baseline. Psych: Developmental delay; nonverbal at baseline, unable to assess Objective Labs 09/12/25 05:10 09/12/25 05:10 Labs: Laboratory Results - last 24 hr 09/11/25 09/11/25 09/11/25 11:19 14:32 17:25 WBC RBC Hgb Hct MCV MCH MCHC RDW Std Deviation Plt Count Neut % (Auto) Lymph % (Auto) [place] % (Auto) Eos % (Auto) Baso % (Auto) Neut # (Auto) Lymph # (Auto) [place] # (Auto) Eos # (Auto) Baso # (Auto) Immature Gran # (Auto) Absolute Nucleated RBC Immature Gran % Nucleated RBC % Smear Path Review Sent to Pathologist Puncture Site ABG pH ABG pCO2 ABG pO2 ABG HCO3 ABG O2 Saturation ABG Base Excess Oxygen Liter Flow Sodium Potassium Chloride Carbon Dioxide Anion Gap BUN Creatinine Estim Creat Clear Calc eGFR BUN/Creatinine Ratio Glucose Calculated Osmolality Lactic Acid 3.4 H 2.4 H Calcium Corrected Calcium Phosphorus Magnesium Total Bilirubin AST ALT Alkaline Phosphatase Troponin I Total Protein Albumin Globulin Albumin/Globulin Ratio Triglycerides Cholesterol LDL Cholesterol, Calc HDL Cholesterol Cholesterol/HDL Ratio 09/11/25 09/12/25 09/12/25 21:15 00:48 05:10 WBC 9.1 RBC 4.03 L Hgb 11.8 L D Hct 37.1 L MCV 92 MCH 29.3 MCHC 31.8 RDW Std Deviation 43.6 Plt Count 117 L Neut % (Auto) 64 Lymph % (Auto) 17 [place] % (Auto) 18 H Eos % (Auto) 0 Baso % (Auto) 1 Neut # (Auto) 5.8 Lymph # (Auto) 1.5 [place] # (Auto) 1.6 H Eos # (Auto) 0.0 Baso # (Auto) 0.1 Immature Gran # (Auto) 0.08 H Absolute Nucleated RBC 0.00 Immature Gran % 1 H Nucleated RBC % 0 Smear Path Review Puncture Site ABG pH ABG pCO2 ABG pO2 ABG HCO3 ABG O2 Saturation ABG Base Excess Oxygen Liter Flow Sodium 145 145 Potassium 4.6 D 4.2 Chloride 111 H 110 H Carbon Dioxide 22.7 25.4 Anion Gap 11 10 BUN 10 10 Creatinine 0.5 L D 0.6 Estim Creat Clear Calc 158.6 132.1 eGFR > 60 > 60 BUN/Creatinine Ratio 20 17 Glucose 90 82 Calculated Osmolality 287 286 Lactic Acid 2.4 H 2.0 Calcium 8.1 L 8.2 L Corrected Calcium 8.7 Phosphorus 3.2 Magnesium 1.8 Total Bilirubin 0.7 AST 22 ALT < 7 L Alkaline Phosphatase 49 D Troponin I < 0.020 Total Protein 6.3 Albumin 3.4 L D Globulin 2.9 Albumin/Globulin Ratio 1.2 Triglycerides 197 H Cholesterol 72 L LDL Cholesterol, Calc 19 HDL Cholesterol 14 L Cholesterol/HDL Ratio 5.1 09/12/25 09/12/25 09/12/25 05:18 05:59 09:09 WBC RBC Hgb Hct MCV MCH MCHC RDW Std Deviation Plt Count Neut % (Auto) Lymph % (Auto) [place] % (Auto) Eos % (Auto) Baso % (Auto) Neut # (Auto) Lymph # (Auto) [place] # (Auto) Eos # (Auto) Baso # (Auto) Immature Gran # (Auto) Absolute Nucleated RBC Immature Gran % Nucleated RBC % Smear Path Review Puncture Site Right Radial ABG pH 7.34 L ABG pCO2 49 H ABG pO2 80 L ABG HCO3 26 ABG O2 Saturation 96 ABG Base Excess 0 Oxygen Liter Flow 8 Sodium Potassium Chloride Carbon Dioxide Anion Gap BUN Creatinine Estim Creat Clear Calc eGFR BUN/Creatinine Ratio Glucose Calculated Osmolality Lactic Acid 2.3 H 2.7 H Calcium Corrected Calcium Phosphorus Magnesium Total Bilirubin AST ALT Alkaline Phosphatase Troponin I Total Protein Albumin Globulin Albumin/Globulin Ratio Triglycerides Cholesterol LDL Cholesterol, Calc HDL Cholesterol Cholesterol/HDL Ratio 09/12/25 12:29 WBC RBC Hgb Hct MCV MCH MCHC RDW Std Deviation Plt Count Neut % (Auto) Lymph % (Auto) [place] % (Auto) Eos % (Auto) Baso % (Auto) Neut # (Auto) Lymph # (Auto) [place] # (Auto) Eos # (Auto) Baso # (Auto) Immature Gran # (Auto) Absolute Nucleated RBC Immature Gran % Nucleated RBC % Smear Path Review Puncture Site ABG pH ABG pCO2 ABG pO2 ABG HCO3 ABG O2 Saturation ABG Base Excess Oxygen Liter Flow Sodium Potassium Chloride Carbon Dioxide Anion Gap BUN Creatinine Estim Creat Clear Calc eGFR BUN/Creatinine Ratio Glucose Calculated Osmolality Lactic Acid 1.3 Calcium Corrected Calcium Phosphorus Magnesium Total Bilirubin AST ALT Alkaline Phosphatase Troponin I Total Protein Albumin Globulin Albumin/Globulin Ratio Triglycerides Cholesterol LDL Cholesterol, Calc HDL Cholesterol Cholesterol/HDL Ratio ABG Interpretation ABG results: 09/11/25 09/12/25 12:35 05:59 ABG pH 7.34 L ABG pCO2 49 H ABG pO2 80 L ABG HCO3 26 ABG O2 Saturation 96 ABG Base Excess 0 VBG pH 7.38 VBG pCO2 43 VBG pO2 49 VBG Base Excess 0 Quality Measures Quality Measures none Assessment & Plan Assessment Current Active Medications: Generic Name Dose Route Start Last Admin Trade Name Freq PRN Reason Stop Dose Admin Acetaminophen 650 mg 09/11/25 13:27 Acetaminophen 325 Mg Tablet PO 10/11/25 13:26 Q6H PRN pain and fever >100.4 Hydrocodone Bitart/Acetaminophen 1 tab 09/11/25 13:27 09/12/25 05:03 Hydrocodone/Apap 5/325 Tablet PO 09/16/25 13:26 1 tab Q4HR PRN Administration PAIN SCALE 4-10(Mod-Sev Albuterol/Ipratropium 3 ml 09/11/25 15:00 09/12/25 10:46 Albuterol/Ipratropium (Duoneb) Rt Lisset 3 Ml Nebu INH 10/11/25 14:59 3 ml Q4HRRT KIKI Administration Guaifenesin 100 mg 09/12/25 14:00 09/12/25 13:27 Guaifenesin Syrup 200 Mg/10 Ml Udc GT 10/12/25 13:59 100 mg TID KIKI Administration Protocol Heparin Sodium (Porcine) 5,000 unit 09/11/25 14:00 09/12/25 13:27 Heparin Sod Inj 5000 Unit/Ml Vial SC 09/25/25 13:59 5,000 unit Q8HR KIKI Administration Azithromycin 500 mg/ Sodium 250 mls @ 250 mls/hr 09/12/25 21:00 Chloride IV 09/18/25 20:59 QDAY@2100 KIKI Cefepime HCl 2 gm/ Sodium 50 mls @ 100 mls/hr 09/11/25 22:00 09/12/25 13:27 Chloride IV 09/18/25 21:59 100 mls/hr Q8HR KIKI Administration Levetiracetam 1,500 mg 09/11/25 21:00 09/12/25 08:23 Levetiracetam Inj 100 Mg/Ml Vial 5ml IVP 10/11/25 20:59 1,500 mg Q12HR KIKI Administration Ondansetron HCl 4 mg 09/11/25 13:27 Ondansetron Inj 2 Mg/Ml Inj 2 Ml IVP 10/11/25 13:26 Q6H PRN NAUSEA OR VOMITING Protocol Pantoprazole Sodium 40 mg 09/11/25 13:45 09/12/25 08:23 Pantoprazole Inj 40 Mg Vial IVP 10/11/25 13:44 40 mg QDAY KIKI Administration Valproic Acid 875 mg 09/12/25 09:00 09/12/25 11:21 Valproic Acid Syrup 250 Mg/5 Ml Udc GT 10/12/25 08:59 875 mg BID KIKI Administration Plan 39-year-old male with past medical history of cerebral palsy (nonverbal), developmental delay, seizures, hypertension, GERD, left eye blindness, presenting to the ED on 09/11/25 for shortness of breath. Patient admitted 09/11/25 for sepsis in context of bilateral pneumonia. # Acute hypoxic respiratory failure and # Sepsis secondary to # Community acquired -Pneumonia versus aspirational #Lactic acidosis. resolved Patient was brought to the ED with shortness of breath when he had O2 with 85% on room air, and required 4 L to reach 91 to 92%. Chest x-ray in ED showed bilateral perihilar pneumonia; exam reveals significant apical crackles bilaterally. Patient's WBC count was 12.8 on admission; combined with tachycardia at 128, tachypnea at 25, temperature of 103.4, lactate of 2.7, and DIDI (creatinine on admission is 1.3, his baseline is 0.7), patient meets criteria for sepsis with multiple organ dysfunction syndrome, as he had a temperature above 100.4 on admission, was tachycardic and tachypneic, and had WBCs above 12,000; he also has a suspected source of infection, lactic acidosis, and evidence of 2 organs failing (lactic acidosis, and DIDI via creatinine). Plan: Azithromycin 500 IV daily and cefepime 2 g IV every 8 hours Sputum, blood, and urine cultures DuoNebs and chest physiotherapy every 4 hours Added guaifenesin #Seizures #Hypertension #GERD #Cerebral palsy #Developmental delay Patient is on valproic acid and Keppra at home for seizures, as well as furosemide 20 and metoprolol succinate 50 for blood pressure, and famotidine 20 for GERD. Plan: Continue home keppra and valproate Hold BP meds in the context of patient being normotensive; monitor BP Protonix 40 BID Disposition: Telemetry DVT prophylaxis: heparin 5000 subcu q8h GI prophylaxis: protonix 40 qday Diet: Start tube feeds Lines: PIV CODE STATUS: Full code Case disclosed with Attending Dr. Richar Hernandez PGY2 Disclaimer: Even though this this note was dictated by speech recognition and even though it was carefully revised there may still be minor errors in diabetic educator due to voice recognition software. Attending Provider Attestation/Addendum I, Ghazal Mcqueen DO, attest that I was physically present for the street portions of the service and evaluated the patient with the resident and I reviewed and discussed the case with the resident and agree with the resident's findings and plans of care as documented above Patient seen and evaluated this AM. Father is at bedside. Patient requiring 11L/ oxymask this AM and continues to have scattered rhonchi in b/l lung dean, right worse than left. Will add mucolytics and increase chest PT to every four hours with breathing treatments. He continues to have fevers this AM. F/u sputum cultures and continue with current management. Will place pt on HFNC due to increasing oxygen demand and for increase positive pressure
[2025-09-12] MEDS: AZITHROMYCIN INJ 500 MG in SODIUM CHLORIDE 0.9% 250 ML 250 ML 250 MG IV (21:03)
[2025-09-13] VITALS (17 sets, daily range): BP systolic 85–99; BP diastolic 50–67; PULSE 89–121; RESP 11–23; TEMP 36.3–38.3; O2SAT 88–100
[2025-09-13] MEDS: ALBUTEROL/IPRATROPIUM (Duoneb) RT SOL 3 ML NEBU INH ×6 (03:40→22:38)
[2025-09-13] MEDS: HEPARIN SOD INJ 5000 UNIT/ML VIAL SC ×3 (05:12→21:10)
[2025-09-13] MEDS: guaiFENesin SYRUP 200 MG/10 ML UDC 100 MG GT ×3 (05:13→21:09)
[2025-09-13] MEDS: CEFEPIME INJ 2 GM in SODIUM CHLORIDE 0.9% (Popper) 50 ML IV ×3 (05:16→22:55)
[2025-09-13 05:26] LABS: Basophils # (Auto) 0.0 Thou/mm3 (0.0-0.2); Basophils % (Auto) 0 % (0-2.5); Eosinophils # (Auto) 0.0 Thou/mm3 (0.0-0.5); Eosinophils % (Auto) 0 % (0-10); Hematocrit 31.1 % (41.0-53.0); Hemoglobin 9.8 g/dL (13.5-16.0); Immature Granulocytes Auto 0.05 Thou/mm3 (0.00-0.00); Lymphocytes # (Auto) 2.0 Thou/mm3 (1.0-4.8); Lymphocytes % (Auto) 23 % (10-50); Mean Corpuscular HGB Conc 31.5 g/dl (31.0-37.0); Mean Corpuscular Hemoglobin 29.4 pg (25.0-35.0); Mean Corpuscular Volume 93 fL (80-100); Monocytes # (Auto) 0.8 Thou/mm3 (0.0-0.8); Monocytes % (Auto) 9 % (0-12); Neutrophils # (Auto) 5.8 Thou/mm3 (1.8-7.7); Neutrophils % (Auto) 67 % (37-80); Nucleated Red Blood Cell # 0.00 Thou/mm3 (0.00-0.00); Nucleated Red Blood Cell % 0 /100 WBC (0); Platelet Count 140 Thou/mm3 (140-440); RDW Standard Deviation 44.4 fL (35.1-43.9); Red Blood Count 3.33 Miln/mm3 (4.50-5.90); White Blood Count 8.6 Thou/mm3 (3.8-10.6)
[2025-09-13 06:22] LABS: Alanine Aminotransferase < 7 U/L (10-49); Albumin, Serum 3.2 gm/dL (3.5-5.0); Albumin/Globulin Ratio 1.3 (1.2-2.2); Alkaline Phosphatase 49 U/L (46-116); Anion Gap 9 (7-16); Aspartate Amino Transferase 23 U/L (0-34); BUN/Creatinine Ratio 28 Ratio (12-20); Bilirubin,Total 0.4 mg/dL (0.3-1.2); Blood Urea Nitrogen 14 mg/dL (9-23); Calcium 8.1 mg/dL (8.3-10.6); Calcium (Corrected) 8.7 mg/dL (8.5-10.1); Carbon Dioxide 27.0 mMol/L (20.0-31.0); Chloride 108 mMol/L (98-107); Creatinine (Component) 0.5 mg/dL (0.6-1.3); Estimated Creatinine Clearance 158.6 mL/min (>60); Globulin 2.5 gm/dL (2.3-3.5); Glucose 90 mg/dL (74-106); Osmolality,Calculated 287 (275-295); Potassium 3.8 mMol/L (3.4-5.1); Sodium 144 mMol/L (136-145); Total Protein 5.7 gm/dL (5.7-8.2); eGFR > 60 See Note
[2025-09-13] MEDS: levETIRAcetam INJ 100 MG/ML VIAL 5ML 1500 MG IVP ×2 (09:47→21:09)
[2025-09-13] MEDS: VALPROIC ACID SYRUP 250 MG/5 ML UDC 875 MG GT ×2 (09:50→21:09)
[2025-09-13] MEDS: METOPROLOL TARTRATE 25 MG TABLET 12.5 MG GT ×2 (12:31→21:08)
[2025-09-13] MEDS: ACETAMINOPHEN 325 MG TABLET 650 MG PO (12:32)
--- NOTE | 2025-09-13 12:54 | ESPR_ITS ---
<Statement entered by Erickson Hernandez MD - 09/13/25 13:57> I have reviewed the note and agree with the resident's assessment & plan with exceptions as below. I have personally reviewed labs, imaging, home meds/prior records, examined the patient, formulated and discussed management plan with my attending Patient was seen and examined at bedside this morning. No acute overnight events. Patient seems to be improving and his lung auscultation do sound better today, still some mild rhonchi bilaterally with some upper airway congestion. Currently on 25 L at 50% FiO2 via high flow nasal cannula. Saturating well. WBCs continue to downtrend. Sputum cultures did grow GNR therefore we will continue with antibiotics until blood and sputum cultures result. Start patient on metoprolol to tartrate 12.5 mg twice daily as patient is still tachycardic. Erickson Hernandez PGY2 Disclaimer: Even though this this note was dictated by speech recognition and even though it was carefully revised there may still be minor errors in thoroughbred horse farm manager due to voice recognition software. Documentation for date of: 09/13/25 Subjective Subjective Interval history: Patient seen at bedside; no acute overnight events. Rales improved, but still present; on 25L at 50% FiO2 in AM, from 25L at 60% FiO2 previously. Sputum culture showed GNRs; BCx showed no growth at 48hours. Exam Vital Signs Temp Pulse Resp BP Pulse Ox O2 Del Method O2 Flow Rate 101.0 F H 120 H 18 99/63 93 L High Flow Nasal Cannula 25 09/13/25 12:32 09/13/25 12:31 09/13/25 12:00 09/13/25 12:31 09/13/25 12:00 09/13/25 12:00 09/13/25 12:00 FiO2 50 09/13/25 12:00 Narrative Exam General: A/O x3, no acute distress, well-nourished, cerebral palsy, developmental delay, nonverbal at baseline Eyes: R pupil ERRL, L eye blindness with injected conjunctiva Ears: No ear discharge, Hearing grossly intact. Nose: No nasal discharge. Mouth/Throat: Moist mucous membranes, no redness, no lesions. Neck: Neck supple, non-tender, no cervical lymphadenopathy. Lungs: Improving bilateral rales with audible upper airway congestion, No accessory muscle use. Cardio: Normal S1/S2, regular rhythm, no murmurs, no JVD Abdomen: Soft, non-tender, no palpable masses, peristalsis present, no guarding or rebound. G tube present. Extremities: Contractures present bilaterally, no peripheral edema , non-tender, peripheral pulses present. : No scrotal swelling Skin: No rashes, no lesions, warm to touch. Neuro: No change for neurological baseline. Psych: Developmental delay; nonverbal at baseline, unable to assess Objective Labs 09/13/25 05:10 09/13/25 05:10 Labs: Laboratory Results - last 24 hr 09/13/25 05:10 WBC 8.6 RBC 3.33 L Hgb 9.8 L D Hct 31.1 L MCV 93 MCH 29.4 MCHC 31.5 RDW Std Deviation 44.4 H Plt Count 140 Neut % (Auto) 67 Lymph % (Auto) 23 [place] % (Auto) 9 Eos % (Auto) 0 Baso % (Auto) 0 Neut # (Auto) 5.8 Lymph # (Auto) 2.0 [place] # (Auto) 0.8 Eos # (Auto) 0.0 Baso # (Auto) 0.0 Immature Gran # (Auto) 0.05 H Absolute Nucleated RBC 0.00 Immature Gran % 1 H Nucleated RBC % 0 Sodium 144 Potassium 3.8 Chloride 108 H Carbon Dioxide 27.0 Anion Gap 9 BUN 14 Creatinine 0.5 L Estim Creat Clear Calc 158.6 eGFR > 60 BUN/Creatinine Ratio 28 H Glucose 90 Calculated Osmolality 287 Calcium 8.1 L Corrected Calcium 8.7 Total Bilirubin 0.4 AST 23 ALT < 7 L Alkaline Phosphatase 49 Total Protein 5.7 Albumin 3.2 L Globulin 2.5 Albumin/Globulin Ratio 1.3 ABG Interpretation ABG results: 09/11/25 09/12/25 12:35 05:59 ABG pH 7.34 L ABG pCO2 49 H ABG pO2 80 L ABG HCO3 26 ABG O2 Saturation 96 ABG Base Excess 0 VBG pH 7.38 VBG pCO2 43 VBG pO2 49 VBG Base Excess 0 Quality Measures Quality Measures none Assessment & Plan Assessment Current Active Medications: Generic Name Dose Route Start Last Admin Trade Name Freq PRN Reason Stop Dose Admin Acetaminophen 650 mg 09/11/25 13:27 09/13/25 12:32 Acetaminophen 325 Mg Tablet PO 10/11/25 13:26 650 mg Q6H PRN Administration pain and fever >100.4 Hydrocodone Bitart/Acetaminophen 1 tab 09/11/25 13:27 09/12/25 05:03 Hydrocodone/Apap 5/325 Tablet PO 09/16/25 13:26 1 tab Q4HR PRN Administration PAIN SCALE 4-10(Mod-Sev Albuterol/Ipratropium 3 ml 09/11/25 15:00 09/13/25 10:02 Albuterol/Ipratropium (Duoneb) Rt Lisset 3 Ml Nebu INH 10/11/25 14:59 3 ml Q4HRRT KIKI Administration Guaifenesin 100 mg 09/12/25 14:00 09/13/25 05:13 Guaifenesin Syrup 200 Mg/10 Ml Udc GT 10/12/25 13:59 100 mg TID KIKI Administration Protocol Heparin Sodium (Porcine) 5,000 unit 09/11/25 14:00 09/13/25 05:12 Heparin Sod Inj 5000 Unit/Ml Vial SC 09/25/25 13:59 5,000 unit Q8HR KIKI Administration Azithromycin 500 mg/ Sodium 250 mls @ 250 mls/hr 09/12/25 21:00 09/12/25 21:03 Chloride IV 09/18/25 20:59 250 mls/hr QDAY@2100 KIKI Administration Cefepime HCl 2 gm/ Sodium 50 mls @ 100 mls/hr 09/11/25 22:00 09/13/25 05:16 Chloride IV 09/18/25 21:59 100 mls/hr Q8HR KIKI Administration Levetiracetam 1,500 mg 09/11/25 21:00 09/13/25 09:47 Levetiracetam Inj 100 Mg/Ml Vial 5ml IVP 10/11/25 20:59 1,500 mg Q12HR KIKI Administration Metoprolol Tartrate 12.5 mg 09/13/25 11:45 09/13/25 12:31 Metoprolol Tartrate 25 Mg Tablet GT 10/13/25 11:44 12.5 mg BID KIKI Administration Ondansetron HCl 4 mg 09/11/25 13:27 Ondansetron Inj 2 Mg/Ml Inj 2 Ml IVP 10/11/25 13:26 Q6H PRN NAUSEA OR VOMITING Protocol Pantoprazole Sodium 40 mg 09/11/25 13:45 09/13/25 09:48 Pantoprazole Inj 40 Mg Vial IVP 10/11/25 13:44 40 mg QDAY KIKI Administration Valproic Acid 875 mg 09/12/25 09:00 09/13/25 09:50 Valproic Acid Syrup 250 Mg/5 Ml Udc GT 10/12/25 08:59 875 mg BID KIKI Administration Plan 39-year-old male with past medical history of cerebral palsy (nonverbal), developmental delay, seizures, hypertension, GERD, left eye blindness, presenting to the ED on 09/11/25 for shortness of breath. Patient admitted 09/11/25 for sepsis in context of bilateral pneumonia. # Acute hypoxic respiratory failure and # Sepsis secondary to # Community acquired -Pneumonia versus aspirational #Lactic acidosis. resolved Patient was brought to the ED with shortness of breath when he had O2 with 85% on room air, and required 4 L to reach 91 to 92%. Chest x-ray in ED showed bilateral perihilar pneumonia; exam reveals significant apical crackles bilaterally. Patient's WBC count was 12.8 on admission; combined with tachycardia at 128, tachypnea at 25, temperature of 103.4, lactate of 2.7, and DIDI (creatinine on admission is 1.3, his baseline is 0.7), patient meets criteria for sepsis with multiple organ dysfunction syndrome, as he had a temperature above 100.4 on admission, was tachycardic and tachypneic, and had WBCs above 12,000; he also has a suspected source of infection, lactic acidosis, and evidence of 2 organs failing (lactic acidosis, and DIDI via creatinine). Sputum culture showed GNRs; BCx showed no growth at 48hours. Plan: Azithromycin 500 IV daily and cefepime 2 g IV every 8 hours Sputum, blood, and urine cultures DuoNebs and chest physiotherapy every 4 hours Added guaifenesin #Tachycardia Patient has HR 128 on admission; was 120 on 09/13/25 at 12:31 Plan: Metoprolol tartrate 12.5 started; HR 95 on 09/13/25 at 14:33 #Seizures #Hypertension #GERD #Cerebral palsy #Developmental delay Patient is on valproic acid and Keppra at home for seizures, as well as furosemide 20 and metoprolol succinate 50 for blood pressure, and famotidine 20 for GERD. Plan: Continue home keppra and valproate Hold BP meds in the context of patient being normotensive; monitor BP Protonix 40 BID Disposition: Telemetry DVT prophylaxis: heparin 5000 subcu q8h GI prophylaxis: protonix 40 qday Diet: Ensure Plus High Protein @ 20mL/hr via PEG tube, advance to 40ml/hr; water flushes of 40ml/hr if no IV fluids Lines: PIV CODE STATUS: Full code This case was discussed with my attending physician, Dr. Mcqueen, and senior resident, Dr. Baeza. Dale Villafuerte MD-PhD, PGY1 Attending Provider Attestation/Addendum I, Ghazal Mqcueen, DO, attest that I was physically present for the street portions of the service and evaluated the patient with the resident and I reviewed and discussed the case with the resident and agree with the resident's findings and plans of care as documented above Patient seen and evaluated this AM. He remains on HFNC with flow of 25Lmin and Fio2 of 50%. Afebrile overnight. Patient remains tachycardic, but noted that he takes metoprolol at home. Will restart at this time. Rhonchi in bilateral lung dean are much improved. Patient is resting comfortably. Will continue with breathing treatments and chest PT. Sputum cultures positive for GNR. pending final cultures and ssensitivities to further narrow abx.
--- NOTE | 2025-09-13 14:31 | PC.SS ---
Patient has cerebral palsy, is developmentally delayed, non verbal and he has a peg tube. Patient has a dx: seizures. SS spoke to patient's mother. [place] speaking only. staff interpreter assisted. Patient is total care and resides at home. He uses a wheelchair, has 02 and receives peg feedings which are mailed to them. Patient is connected to [facility]. Both mother and father make all medical decisions. Patient's father transports him to appointments. PCP: Dr. Carri Castillo. Patient also follows with a Bid Manager and Neurologist. Pharmacy: [facility]. Discharge plan is to return home. Alt medical decision maker: Fara rosales,
[2025-09-13] MEDS: AZITHROMYCIN INJ 500 MG in SODIUM CHLORIDE 0.9% 250 ML 250 ML 250 MG IV (21:08)
[2025-09-14] VITALS (16 sets, daily range): BP systolic 94–107; BP diastolic 59–70; PULSE 87–110; RESP 15–23; TEMP 36.1–37.8; O2SAT 88–98
[2025-09-14] MEDS: ALBUTEROL/IPRATROPIUM (Duoneb) RT SOL 3 ML NEBU INH ×6 (02:17→23:37)
[2025-09-14] MEDS: HEPARIN SOD INJ 5000 UNIT/ML VIAL SC (05:11)
[2025-09-14] MEDS: CEFEPIME INJ 2 GM in SODIUM CHLORIDE 0.9% (Popper) 50 ML IV ×3 (05:12→22:19)
[2025-09-14] MEDS: guaiFENesin SYRUP 200 MG/10 ML UDC 100 MG GT ×3 (05:12→21:12)
[2025-09-14 06:18] LABS: Basophils # (Auto) 0.0 Thou/mm3 (0.0-0.2); Basophils % (Auto) 0 % (0-2.5); Eosinophils # (Auto) 0.0 Thou/mm3 (0.0-0.5); Eosinophils % (Auto) 0 % (0-10); Hematocrit 36.9 % (41.0-53.0); Hemoglobin 11.8 g/dL (13.5-16.0); Immature Granulocytes Auto 0.14 Thou/mm3 (0.00-0.00); Lymphocytes # (Auto) 2.1 Thou/mm3 (1.0-4.8); Lymphocytes % (Auto) 29 % (10-50); Mean Corpuscular HGB Conc 32.0 g/dl (31.0-37.0); Mean Corpuscular Hemoglobin 29.0 pg (25.0-35.0); Mean Corpuscular Volume 91 fL (80-100); Monocytes # (Auto) 0.6 Thou/mm3 (0.0-0.8); Monocytes % (Auto) 8 % (0-12); Neutrophils # (Auto) 4.4 Thou/mm3 (1.8-7.7); Neutrophils % (Auto) 61 % (37-80); Nucleated Red Blood Cell # 0.00 Thou/mm3 (0.00-0.00); Nucleated Red Blood Cell % 0 /100 WBC (0); Platelet Count 86 Thou/mm3 (140-440); RDW Standard Deviation 41.9 fL (35.1-43.9); Red Blood Count 4.07 Miln/mm3 (4.50-5.90); White Blood Count 7.2 Thou/mm3 (3.8-10.6)
[2025-09-14 06:42] LABS: Alanine Aminotransferase 11 U/L (10-49); Albumin, Serum 3.4 gm/dL (3.5-5.0); Albumin/Globulin Ratio 1.1 (1.2-2.2); Alkaline Phosphatase 81 U/L (46-116); Anion Gap 10 (7-16); Aspartate Amino Transferase 33 U/L (0-34); BUN/Creatinine Ratio 23 Ratio (12-20); Bilirubin,Total 0.2 mg/dL (0.3-1.2); Blood Urea Nitrogen 9 mg/dL (9-23); Calcium 8.5 mg/dL (8.3-10.6); Calcium (Corrected) 9.0 mg/dL (8.5-10.1); Carbon Dioxide 30.3 mMol/L (20.0-31.0); Chloride 104 mMol/L (98-107); Creatinine (Component) 0.4 mg/dL (0.6-1.3); Estimated Creatinine Clearance 198.2 mL/min (>60); Globulin 3.0 gm/dL (2.3-3.5); Glucose 100 mg/dL (74-106); Magnesium 2.0 mg/dL (1.6-2.6); Osmolality,Calculated 285 (275-295); Phosphorous 1.6 mg/dL (2.4-5.1); Potassium 4.0 mMol/L (3.4-5.1); Sodium 144 mMol/L (136-145); Total Protein 6.4 gm/dL (5.7-8.2); eGFR > 60 See Note
[2025-09-14] MEDS: METOPROLOL TARTRATE 25 MG TABLET 12.5 MG GT ×2 (08:27→20:57)
[2025-09-14] MEDS: levETIRAcetam INJ 100 MG/ML VIAL 5ML 1500 MG IVP ×2 (08:28→20:34)
[2025-09-14] MEDS: POTASSIUM PHOS 22.5 MMOL in SODIUM CHLORIDE 0.9% 500 ML 500 ML 82.778 MMOL IV (08:33)
[2025-09-14] MEDS: VALPROIC ACID SYRUP 250 MG/5 ML UDC 875 MG GT ×2 (08:33→20:34)
[2025-09-14] MEDS: metroNIDAZOLE/NS 500 MG IVPB 500 MG/100 ML BAG 200 MG IV ×2 (10:34→21:12)
[2025-09-14] MEDS: METOCLOPRAMIDE INJ 5 MG/ML VIAL 2 ML IVP ×2 (12:45→17:46)
--- NOTE | 2025-09-14 15:18 | ESPR_ITS ---
<Statement entered by Erickson Hernandez MD - 09/14/25 15:39> I have reviewed the note and agree with the resident's assessment & plan with exceptions as below. I have personally reviewed labs, imaging, home meds/prior records, examined the patient, formulated and discussed management plan with my attending Patient was seen and examined at bedside morning. No acute overnight events. Patient yesterday afternoon and today in the morning did spike low-grade fevers, but is less tachycardic and other vital signs are stable. Patient's O2 requirements are also downtrending and he is currently on 20 L with an FiO2 of 45. It was noted that the patient had some discharge in her mouth which looked like the tube feeds therefore stopped tube feeds patient could not possibly having acid reflux and some vomiting therefore to decrease risk of aspiration and start Reglan and will start tube feeds at half the rate at this time. Otherwise patient clinically looks better and still pending sputum cultures final results. Added Flagyl for anaerobic coverage. Erickson Hernandez PGY2 Disclaimer: Even though this this note was dictated by speech recognition and even though it was carefully revised there may still be minor errors in customer service technician due to voice recognition software. Documentation for date of: 09/14/25 Subjective Subjective Interval history: Seen and examined at bedside today; no acute events overnight. In the morning, patient spiked a low-grade fever, and appeared diaphoretic. O2 requirements have decreased; he is currently on 20 L and 45% FiO2. Also saw liquid in mouth that look like tube feeds; thus, stopped tube feeds until tonight. Will restart tube feeds at half rate with Reglan to prevent aspiration. Exam Vital Signs Temp Pulse Resp BP Pulse Ox O2 Del Method O2 Flow Rate 99.9 F 99 20 107/70 95 High Flow Nasal Cannula 20 09/14/25 08:00 09/14/25 15:04 09/14/25 15:04 09/14/25 08:27 09/14/25 15:04 09/14/25 08:00 09/14/25 15:04 FiO2 45 09/14/25 15:04 Narrative Exam General: A/O x3, no acute distress, well-nourished, cerebral palsy, developmental delay, nonverbal at baseline Eyes: R pupil ERRL, L eye blindness with injected conjunctiva Ears: No ear discharge, Hearing grossly intact. Nose: No nasal discharge. Mouth/Throat: Moist mucous membranes, no redness, no lesions. Tube feed like appearing material coming from mouth. Neck: Neck supple, non-tender, no cervical lymphadenopathy. Lungs: Improving bilateral rales with audible upper airway congestion, No accessory muscle use. Cardio: Normal S1/S2, regular rhythm, no murmurs, no JVD Abdomen: Soft, non-tender, no palpable masses, peristalsis present, no guarding or rebound. G tube present. Extremities: Contractures present bilaterally, no peripheral edema , non-tender, peripheral pulses present. : No scrotal swelling Skin: No rashes, no lesions, forehead was feverish in the a.m. Neuro: No change for neurological baseline. Psych: Developmental delay; nonverbal at baseline, unable to assess Objective Labs 09/15/25 05:02 09/15/25 05:02 Labs: Laboratory Results - last 24 hr 09/14/25 04:37 WBC 7.2 RBC 4.07 L Hgb 11.8 L D Hct 36.9 L MCV 91 MCH 29.0 MCHC 32.0 RDW Std Deviation 41.9 Plt Count 86 L D Neut % (Auto) 61 Lymph % (Auto) 29 [place] % (Auto) 8 Eos % (Auto) 0 Baso % (Auto) 0 Neut # (Auto) 4.4 Lymph # (Auto) 2.1 [place] # (Auto) 0.6 Eos # (Auto) 0.0 Baso # (Auto) 0.0 Immature Gran # (Auto) 0.14 H Absolute Nucleated RBC 0.00 Immature Gran % 2 H Nucleated RBC % 0 Sodium 144 Potassium 4.0 Chloride 104 Carbon Dioxide 30.3 Anion Gap 10 BUN 9 Creatinine 0.4 L Estim Creat Clear Calc 198.2 eGFR > 60 BUN/Creatinine Ratio 23 H Glucose 100 Calculated Osmolality 285 Calcium 8.5 Corrected Calcium 9.0 Phosphorus 1.6 L Magnesium 2.0 Total Bilirubin 0.2 L AST 33 ALT 11 Alkaline Phosphatase 81 D Total Protein 6.4 Albumin 3.4 L Globulin 3.0 Albumin/Globulin Ratio 1.1 L ABG Interpretation ABG results: 09/11/25 09/12/25 12:35 05:59 ABG pH 7.34 L ABG pCO2 49 H ABG pO2 80 L ABG HCO3 26 ABG O2 Saturation 96 ABG Base Excess 0 VBG pH 7.38 VBG pCO2 43 VBG pO2 49 VBG Base Excess 0 Quality Measures Quality Measures none Assessment & Plan Assessment Current Active Medications: Generic Name Dose Route Start Last Admin Trade Name Freq PRN Reason Stop Dose Admin Acetaminophen 650 mg 09/11/25 13:27 09/13/25 12:32 Acetaminophen 325 Mg Tablet PO 10/11/25 13:26 650 mg Q6H PRN Administration pain and fever >100.4 Hydrocodone Bitart/Acetaminophen 1 tab 09/11/25 13:27 09/12/25 05:03 Hydrocodone/Apap 5/325 Tablet PO 09/16/25 13:26 1 tab Q4HR PRN Administration PAIN SCALE 4-10(Mod-Sev Albuterol/Ipratropium 3 ml 09/11/25 15:00 09/14/25 15:04 Albuterol/Ipratropium (Duoneb) Rt Lisset 3 Ml Nebu INH 10/11/25 14:59 3 ml Q4HRRT KIKI Administration Guaifenesin 100 mg 09/12/25 14:00 09/14/25 14:27 Guaifenesin Syrup 200 Mg/10 Ml Udc GT 10/12/25 13:59 100 mg TID KIKI Administration Protocol Heparin Sodium (Porcine) 5,000 unit 09/11/25 14:00 09/14/25 05:11 Heparin Sod Inj 5000 Unit/Ml Vial SC 09/25/25 13:59 5,000 unit On Hold: 09/14/25 07:57 Q8HR KIKI Administration Cefepime HCl 2 gm/ Sodium 50 mls @ 100 mls/hr 09/11/25 22:00 09/14/25 14:28 Chloride IV 09/18/25 21:59 100 mls/hr Q8HR KIKI Administration Metronidazole 500 mg in 100 mls @ 200 mls/hr 09/14/25 10:11 09/14/25 13:59 Flagyl 500 Mg Iv IV 09/21/25 10:10 Not Given Q8HR KIKI Levetiracetam 1,500 mg 09/11/25 21:00 09/14/25 08:28 Levetiracetam Inj 100 Mg/Ml Vial 5ml IVP 10/11/25 20:59 1,500 mg Q12HR KIKI Administration Metoclopramide HCl 5 mg 09/14/25 12:00 09/14/25 12:45 Metoclopramide Inj 5 Mg/Ml Vial 2 Ml IVP 10/14/25 11:59 5 mg Q6HR KIKI Administration Protocol Metoprolol Tartrate 12.5 mg 09/13/25 11:45 09/14/25 08:27 Metoprolol Tartrate 25 Mg Tablet GT 10/13/25 11:44 12.5 mg BID KIKI Administration Ondansetron HCl 4 mg 09/11/25 13:27 Ondansetron Inj 2 Mg/Ml Inj 2 Ml IVP 10/11/25 13:26 Q6H PRN NAUSEA OR VOMITING Protocol Pantoprazole Sodium 40 mg 09/11/25 13:45 09/14/25 08:28 Pantoprazole Inj 40 Mg Vial IVP 10/11/25 13:44 40 mg QDAY KIKI Administration Valproic Acid 875 mg 09/12/25 09:00 09/14/25 08:33 Valproic Acid Syrup 250 Mg/5 Ml Udc GT 10/12/25 08:59 875 mg BID KIKI Administration Plan 39-year-old male with past medical history of cerebral palsy (nonverbal), developmental delay, seizures, hypertension, GERD, left eye blindness, presenting to the ED on 09/11/25 for shortness of breath. Patient admitted 09/11/25 for sepsis in context of bilateral pneumonia. # Acute hypoxic respiratory failure and # Sepsis secondary to # Pneumonia- aspiration potentially secondary to # GERD # Lactic acidosis. resolved Patient was brought to the ED with shortness of breath when he had O2 with 85% on room air, and required 4 L to reach 91 to 92%. Chest x-ray in ED showed bilateral perihilar pneumonia; exam reveals significant apical crackles bilaterally. Patient's WBC count was 12.8 on admission; combined with tachycardia at 128, tachypnea at 25, temperature of 103.4, lactate of 2.7, and DIDI (creatinine on admission is 1.3, his baseline is 0.7), patient meets criteria for sepsis with multiple organ dysfunction syndrome, as he had a temperature above 100.4 on admission, was tachycardic and tachypneic, and had WBCs above 12,000; he also has a suspected source of infection, lactic acidosis, and evidence of 2 organs failing (lactic acidosis, and DIDI via creatinine). Sputum culture showed GNRs; BCx showed no growth at 48hours. 09/14/2025 physical exam showed potential tube feed like material coming from the mouth; suggestive of aspiration. Plan: cefepime 2 g IV every 8 hours and metronidazole 500 every 8 hours Sputum, blood, and urine cultures DuoNebs and chest physiotherapy every 4 hours Added guaifenesin Resume tube feeds at night at half previous rate and with metoclopramide to prevent vomiting and subsequent aspiration Protonix 40 BID #Tachycardia Patient has HR 128 on admission; was 120 on 09/13/25 at 12:31 Plan: Metoprolol tartrate 12.5 started; HR 93 on 09/14/25 at 16:00 #Hypertension Patient is on furosemide 20 and metoprolol succinate 50 for blood pressure. Plan: Metoprolol tartrate 12.5 started; monitor BP #Seizures #Cerebral palsy #Developmental delay Patient is on valproic acid and Keppra at home for seizures. Plan: Continue home keppra and valproate Disposition: Telemetry DVT prophylaxis: heparin 5000 subcu q8h GI prophylaxis: protonix 40 qday Diet: Ensure Plus High Protein Lines: PIV CODE STATUS: Full code This case was discussed with my attending physician, Dr. Mcqueen, and senior resident, Dr. Baeza. Dale Villafuerte MD-PhD, PGY1 Attending Provider Attestation/Addendum I, Ghazal Mcqueen DO, attest that I was physically present for the street portions of the service and evaluated the patient with the resident and I reviewed and discussed the case with the resident and agree with the resident's findings and plans of care as documented above Patient seen and eval this a.m. He continues to have some low-grade fevers overnight. Patient had been noted to have some discharge from his mouth this morning, concern for aspiration. Tube feeds were slowed down. Will start on metoclopramide as well. Will also cover for anaerobes given patient's frequent history of pneumonia. Will add Flagyl to cefepime. Pending final cultures and sensitivities of sputum currently growing gram-negative rods. Bilateral rhonchi appears improved. Currently on 20 L/min and 45% FiO2 on high flow nasal cannula. Will continue to titrate O2 as tolerated.
--- NOTE | 2025-09-14 21:02 | PC.NURSE ---
spoke to dr valladares regarding tube feeds. states to keep tube feeds at 20ml/hr with 40ml/hr water flushes, do not increase overnight.
--- NOTE | 2025-09-14 21:07 | PC.NURSE ---
notified dr valladares about pt not having a bm since 09/11 per father. Father states pt usually goes 3 [address] states he will take a look at the chart and place orders if necessary.
[2025-09-15] VITALS (14 sets, daily range): BP systolic 88–102; BP diastolic 61–72; PULSE 84–105; RESP 18–24; TEMP 36.1–37.2; O2SAT 95–99; BMI 20.7
[2025-09-15] MEDS: METOCLOPRAMIDE INJ 5 MG/ML VIAL 2 ML IVP ×4 (00:03→17:39)
[2025-09-15] MEDS: ALBUTEROL/IPRATROPIUM (Duoneb) RT SOL 3 ML NEBU INH ×6 (03:20→23:08)
[2025-09-15] MEDS: guaiFENesin SYRUP 200 MG/10 ML UDC 100 MG GT ×3 (05:09→21:21)
[2025-09-15] MEDS: CEFEPIME INJ 2 GM in SODIUM CHLORIDE 0.9% (Popper) 50 ML IV (05:10)
[2025-09-15] MEDS: metroNIDAZOLE/NS 500 MG IVPB 500 MG/100 ML BAG 200 MG IV ×3 (06:10→21:23)
[2025-09-15 06:37] LABS: Basophils # (Auto) 0.1 Thou/mm3 (0.0-0.2); Basophils % (Auto) 1 % (0-2.5); Eosinophils # (Auto) 0.0 Thou/mm3 (0.0-0.5); Eosinophils % (Auto) 1 % (0-10); Hematocrit 32.9 % (41.0-53.0); Hemoglobin 10.6 g/dL (13.5-16.0); Immature Granulocytes Auto 0.46 Thou/mm3 (0.00-0.00); Lymphocytes # (Auto) 2.1 Thou/mm3 (1.0-4.8); Lymphocytes % (Auto) 33 % (10-50); Mean Corpuscular HGB Conc 32.2 g/dl (31.0-37.0); Mean Corpuscular Hemoglobin 29.5 pg (25.0-35.0); Mean Corpuscular Volume 92 fL (80-100); Monocytes # (Auto) 0.8 Thou/mm3 (0.0-0.8); Monocytes % (Auto) 12 % (0-12); Neutrophils # (Auto) 2.9 Thou/mm3 (1.8-7.7); Neutrophils % (Auto) 46 % (37-80); Nucleated Red Blood Cell # 0.00 Thou/mm3 (0.00-0.00); Nucleated Red Blood Cell % 0 /100 WBC (0); Platelet Count 117 Thou/mm3 (140-440); RDW Standard Deviation 42.5 fL (35.1-43.9); Red Blood Count 3.59 Miln/mm3 (4.50-5.90); White Blood Count 6.3 Thou/mm3 (3.8-10.6)
[2025-09-15 07:05] LABS: Alanine Aminotransferase 18 U/L (10-49); Albumin, Serum 3.1 gm/dL (3.5-5.0); Albumin/Globulin Ratio 1.1 (1.2-2.2); Alkaline Phosphatase 66 U/L (46-116); Anion Gap 8 (7-16); Aspartate Amino Transferase 34 U/L (0-34); BUN/Creatinine Ratio 35 Ratio (12-20); Bilirubin,Total 0.2 mg/dL (0.3-1.2); Blood Urea Nitrogen 14 mg/dL (9-23); Calcium 8.8 mg/dL (8.3-10.6); Calcium (Corrected) 9.5 mg/dL (8.5-10.1); Carbon Dioxide 32.7 mMol/L (20.0-31.0); Chloride 103 mMol/L (98-107); Creatinine (Component) 0.4 mg/dL (0.6-1.3); Estimated Creatinine Clearance 198.2 mL/min (>60); Globulin 2.9 gm/dL (2.3-3.5); Glucose 94 mg/dL (74-106); Magnesium 2.0 mg/dL (1.6-2.6); Osmolality,Calculated 287 (275-295); Phosphorous 2.5 mg/dL (2.4-5.1); Potassium 3.3 mMol/L (3.4-5.1); Sodium 144 mMol/L (136-145); Total Protein 6.0 gm/dL (5.7-8.2); eGFR > 60 See Note
[2025-09-15] MEDS: POTASSIUM CHLORIDE 10% 20 MEQ/15 ML UDC GT (08:33)
[2025-09-15] MEDS: levETIRAcetam INJ 100 MG/ML VIAL 5ML 1500 MG IVP ×2 (08:33→20:32)
[2025-09-15] MEDS: METOPROLOL TARTRATE 25 MG TABLET 12.5 MG GT (08:34)
[2025-09-15] MEDS: VALPROIC ACID SYRUP 250 MG/5 ML UDC 875 MG GT ×2 (08:37→20:42)
--- NOTE | 2025-09-15 09:30 | ESPR_ITS ---
Documentation for date of: 09/15/25 Senior resident attestation: Patient evaluated and examined at the bedside, plan of care discussed with rest of the team including my attending physician, except as noted. Patient is 39-year-old male developmentally delayed, wound PEG tube feeding, minimally responsive at baseline, father is present at the bedside, patient presents from home was initially started on IV antibiotics for community- acquired pneumonia, later due to concern for aspiration sputum culture growing gram-negative rods, antibiotic coverage was broadened, sputum cultures grew Proteus antibiotics de-escalated to ceftriaxone, continued improvement in oxygen requirements was previously on high flow, currently on 4 L nasal cannula. PEG tube feedings were withheld yesterday due to concern for aspiration, now started at low rate 20 mL/h, if patient tolerates and PEG tube feeds, if continued concern for aspiration, check for residuals before advancing feed rate. Quresh PGY3 Subjective Subjective Interval history: Patient was seen and examined at bedside today; no acute overnight events. Patient is now off high flow and on nasal cannula 4L. Sputum cultures grew Proteus mirabilis; patient was switched to ceftriaxone 1 g IV.. Exam Vital Signs Temp Pulse Resp BP Pulse Ox O2 Del Method O2 Flow Rate 97.7 F 91 20 102/66 95 Nasal Cannula 4 09/15/25 08:00 09/15/25 08:34 09/15/25 08:00 09/15/25 08:34 09/15/25 08:00 09/15/25 08:00 09/15/25 08:00 FiO2 45 09/14/25 21:27 Narrative Exam General: A/O x3, no acute distress, well-nourished, cerebral palsy, developmental delay, nonverbal at baseline Eyes: R pupil ERRL, L eye blindness Ears: No ear discharge, Hearing grossly intact. Nose: No nasal discharge. Mouth/Throat: Moist mucous membranes, no redness, no lesions. Neck: Neck supple, non-tender, no cervical lymphadenopathy. Lungs: minimal bilateral rales with reduced upper airway congestion, No accessory muscle use. Cardio: Normal S1/S2, regular rhythm, no murmurs, no JVD Abdomen: Soft, non-tender, no palpable masses, peristalsis present, no guarding or rebound. G tube present. Extremities: Contractures present bilaterally, no peripheral edema, non-tender, peripheral pulses present. : No scrotal swelling Skin: No rashes, no lesions Neuro: No change for neurological baseline. Psych: Developmental delay; nonverbal at baseline, unable to assess Objective Labs 09/16/25 05:53 09/16/25 05:53 Labs: Laboratory Results - last 24 hr 09/15/25 05:02 WBC 6.3 RBC 3.59 L Hgb 10.6 L Hct 32.9 L MCV 92 MCH 29.5 MCHC 32.2 RDW Std Deviation 42.5 Plt Count 117 L D Neut % (Auto) 46 Lymph % (Auto) 33 [place] % (Auto) 12 Eos % (Auto) 1 Baso % (Auto) 1 Neut # (Auto) 2.9 Lymph # (Auto) 2.1 [place] # (Auto) 0.8 Eos # (Auto) 0.0 Baso # (Auto) 0.1 Immature Gran # (Auto) 0.46 H Absolute Nucleated RBC 0.00 Immature Gran % 7 H Nucleated RBC % 0 Sodium 144 Potassium 3.3 L D Chloride 103 Carbon Dioxide 32.7 H Anion Gap 8 BUN 14 Creatinine 0.4 L Estim Creat Clear Calc 198.2 eGFR > 60 BUN/Creatinine Ratio 35 H Glucose 94 Calculated Osmolality 287 Calcium 8.8 Corrected Calcium 9.5 Phosphorus 2.5 Magnesium 2.0 Total Bilirubin 0.2 L AST 34 ALT 18 Alkaline Phosphatase 66 Total Protein 6.0 Albumin 3.1 L Globulin 2.9 Albumin/Globulin Ratio 1.1 L ABG Interpretation ABG results: 09/11/25 09/12/25 12:35 05:59 ABG pH 7.34 L ABG pCO2 49 H ABG pO2 80 L ABG HCO3 26 ABG O2 Saturation 96 ABG Base Excess 0 VBG pH 7.38 VBG pCO2 43 VBG pO2 49 VBG Base Excess 0 Quality Measures Quality Measures none Assessment & Plan Assessment Current Active Medications: Generic Name Dose Route Start Last Admin Trade Name Freq PRN Reason Stop Dose Admin Acetaminophen 650 mg 09/11/25 13:27 09/13/25 12:32 Acetaminophen 325 Mg Tablet PO 10/11/25 13:26 650 mg Q6H PRN Administration pain and fever >100.4 Hydrocodone Bitart/Acetaminophen 1 tab 09/11/25 13:27 09/12/25 05:03 Hydrocodone/Apap 5/325 Tablet PO 09/16/25 13:26 1 tab Q4HR PRN Administration PAIN SCALE 4-10(Mod-Sev Albuterol/Ipratropium 3 ml 09/11/25 15:00 09/15/25 06:21 Albuterol/Ipratropium (Duoneb) Rt Lisset 3 Ml Nebu INH 10/11/25 14:59 3 ml Q4HRRT KIKI Administration Guaifenesin 100 mg 09/12/25 14:00 09/15/25 05:09 Guaifenesin Syrup 200 Mg/10 Ml Udc GT 10/12/25 13:59 100 mg TID KIKI Administration Protocol Heparin Sodium (Porcine) 5,000 unit 09/11/25 14:00 09/14/25 05:11 Heparin Sod Inj 5000 Unit/Ml Vial SC 09/25/25 13:59 5,000 unit On Hold: 09/14/25 07:57 Q8HR KIKI Administration Cefepime HCl 2 gm/ Sodium 50 mls @ 100 mls/hr 09/11/25 22:00 09/15/25 05:10 Chloride IV 09/18/25 21:59 100 mls/hr Q8HR KIKI Administration Metronidazole 500 mg in 100 mls @ 200 mls/hr 09/14/25 10:11 09/15/25 06:10 Flagyl 500 Mg Iv IV 09/21/25 10:10 200 mls/hr Q8HR KIKI Administration Levetiracetam 1,500 mg 09/11/25 21:00 09/15/25 08:33 Levetiracetam Inj 100 Mg/Ml Vial 5ml IVP 10/11/25 20:59 1,500 mg Q12HR KIKI Administration Metoclopramide HCl 5 mg 09/14/25 12:00 09/15/25 05:09 Metoclopramide Inj 5 Mg/Ml Vial 2 Ml IVP 10/14/25 11:59 5 mg Q6HR KIKI Administration Protocol Metoprolol Tartrate 12.5 mg 09/13/25 11:45 09/15/25 08:34 Metoprolol Tartrate 25 Mg Tablet GT 10/13/25 11:44 12.5 mg BID KIKI Administration Ondansetron HCl 4 mg 10/27/25 13:27 Ondansetron Inj 2 Mg/Ml Inj 2 Ml IVP 10/11/25 13:26 Q6H PRN NAUSEA OR VOMITING Protocol Pantoprazole Sodium 40 mg 09/11/25 13:45 09/15/25 08:33 Pantoprazole Inj 40 Mg Vial IVP 10/11/25 13:44 40 mg QDAY KIKI Administration Valproic Acid 875 mg 09/12/25 09:00 09/15/25 08:37 Valproic Acid Syrup 250 Mg/5 Ml Udc GT 10/12/25 08:59 875 mg BID KIKI Administration Plan 39-year-old male with past medical history of cerebral palsy (nonverbal), developmental delay, seizures, hypertension, GERD, left eye blindness, presenting to the ED on 09/11/25 for shortness of breath. Patient admitted 09/11/25 for sepsis in context of bilateral pneumonia. # Acute hypoxic respiratory failure and # Sepsis secondary to # Pneumonia- aspiration potentially secondary to # GERD # Lactic acidosis. resolved Patient was brought to the ED with shortness of breath when he had O2 with 85% on room air, and required 4 L to reach 91 to 92%. Chest x-ray in ED showed bilateral perihilar pneumonia; exam reveals significant apical crackles bilaterally. Patient's WBC count was 12.8 on admission; combined with tachycardia at 128, tachypnea at 25, temperature of 103.4, lactate of 2.7, and DIDI (creatinine on admission is 1.3, his baseline is 0.7), patient meets criteria for sepsis with multiple organ dysfunction syndrome, as he had a temperature above 100.4 on admission, was tachycardic and tachypneic, and had WBCs above 12,000; he also has a suspected source of infection, lactic acidosis, and evidence of 2 organs failing (lactic acidosis, and DIDI via creatinine). Sputum culture showed GNRs; BCx showed no growth at 48hours. 09/14/2025 physical exam showed potential tube feed like material coming from the mouth; suggestive of aspiration. 09/15/25- Sputum culture showed Proteus mirabilis Plan: Ceftriaxone 1 g daily and metronidazole 500mg q8h Sputum, blood, and urine cultures DuoNebs and chest physiotherapy every 4 hours guaifenesin Tube feeds at night at half previous rate and with metoclopramide to prevent vomiting and subsequent aspiration Protonix 40 BID #Tachycardia Patient has HR 128 on admission; was 120 on 09/13/25 at 12:31 Plan: Metoprolol tartrate 12.5 started; HR 88 on 09/15/25 at 14:17 #Hypertension Patient is on furosemide 20 and metoprolol succinate 50 for blood pressure. Plan: Metoprolol tartrate 12.5; monitor BP #Seizures #Cerebral palsy #Developmental delay Patient is on valproic acid and Keppra at home for seizures. Plan: Continue home keppra and valproate Disposition: Med-Surg DVT prophylaxis: heparin 5000 subcu q8h GI prophylaxis: protonix 40 qday Diet: Ensure Plus High Protein Lines: PIV CODE STATUS: Full code This case was discussed with my attending physician, Dr. Mcqueen, and senior resident, Dr. Chowdhury. Dale Villafuerte MD-PhD, PGY1 Attending Provider Attestation/Addendum I, Ghazal Mcqueen, DO, attest that I was physically present for the street portions of the service and evaluated the patient with the resident and I reviewed and discussed the case with the resident and agree with the resident's findings and plans of care as documented above Patient seen and eval this a.m. Patient currently on 4L/NC. Patient is much more responsive and alert. He continues to have scattered rhonchi in b/l lung dean. Continue with chest physio, mucinex and breathing treatments. Proteus mirabilis noted in sputum cultures. Will de-escalated cefepime to rocephin and flagyl. Continue with rest of management and titrate O2 as tolerated. Tachycardia resolved.
[2025-09-15] MEDS: cefTRIAXone/D5w 1gm IV premix 1 GM/50 ML BAG IV (11:22)
--- NOTE | 2025-09-15 18:19 | PC.NURSE ---
Patient had multiple bowel movements today.
[2025-09-16] VITALS (14 sets, daily range): BP systolic 94–111; BP diastolic 64–73; PULSE 83–108; RESP 17–24; TEMP 36.1–36.4; O2SAT 94–100
[2025-09-16] MEDS: METOCLOPRAMIDE INJ 5 MG/ML VIAL 2 ML IVP ×4 (00:41→17:30)
[2025-09-16] MEDS: ALBUTEROL/IPRATROPIUM (Duoneb) RT SOL 3 ML NEBU INH ×6 (03:08→23:25)
[2025-09-16] MEDS: guaiFENesin SYRUP 200 MG/10 ML UDC 100 MG GT ×3 (05:25→21:20)
[2025-09-16] MEDS: metroNIDAZOLE/NS 500 MG IVPB 500 MG/100 ML BAG 200 MG IV ×3 (05:28→21:24)
[2025-09-16 06:17] LABS: Basophils # (Auto) 0.1 Thou/mm3 (0.0-0.2); Basophils % (Auto) 2 % (0-2.5); Eosinophils # (Auto) 0.0 Thou/mm3 (0.0-0.5); Eosinophils % (Auto) 0 % (0-10); Hematocrit 31.3 % (41.0-53.0); Hemoglobin 10.0 g/dL (13.5-16.0); Immature Granulocytes Auto 0.87 Thou/mm3 (0.00-0.00); Lymphocytes # (Auto) 1.7 Thou/mm3 (1.0-4.8); Lymphocytes % (Auto) 27 % (10-50); Mean Corpuscular HGB Conc 31.9 g/dl (31.0-37.0); Mean Corpuscular Hemoglobin 29.1 pg (25.0-35.0); Mean Corpuscular Volume 91 fL (80-100); Monocytes # (Auto) 0.7 Thou/mm3 (0.0-0.8); Monocytes % (Auto) 12 % (0-12); Neutrophils # (Auto) 2.7 Thou/mm3 (1.8-7.7); Neutrophils % (Auto) 44 % (37-80); Nucleated Red Blood Cell # 0.00 Thou/mm3 (0.00-0.00); Nucleated Red Blood Cell % 0 /100 WBC (0); Platelet Count 143 Thou/mm3 (140-440); RDW Standard Deviation 41.8 fL (35.1-43.9); Red Blood Count 3.44 Miln/mm3 (4.50-5.90); White Blood Count 6.1 Thou/mm3 (3.8-10.6)
[2025-09-16 06:50] LABS: Alanine Aminotransferase 17 U/L (10-49); Albumin, Serum 3.4 gm/dL (3.5-5.0); Albumin/Globulin Ratio 1.3 (1.2-2.2); Alkaline Phosphatase 69 U/L (46-116); Anion Gap 7 (7-16); Aspartate Amino Transferase 26 U/L (0-34); BUN/Creatinine Ratio 28 Ratio (12-20); Bilirubin,Total 0.3 mg/dL (0.3-1.2); Blood Urea Nitrogen 11 mg/dL (9-23); Calcium 8.9 mg/dL (8.3-10.6); Calcium (Corrected) 9.4 mg/dL (8.5-10.1); Carbon Dioxide 31.8 mMol/L (20.0-31.0); Chloride 107 mMol/L (98-107); Creatinine (Component) 0.4 mg/dL (0.6-1.3); Estimated Creatinine Clearance 198.2 mL/min (>60); Globulin 2.7 gm/dL (2.3-3.5); Glucose 100 mg/dL (74-106); Magnesium 2.1 mg/dL (1.6-2.6); Osmolality,Calculated 289 (275-295); Phosphorous 3.1 mg/dL (2.4-5.1); Potassium 3.4 mMol/L (3.4-5.1); Sodium 146 mMol/L (136-145); Total Protein 6.1 gm/dL (5.7-8.2); eGFR > 60 See Note
[2025-09-16] MEDS: cefTRIAXone/D5w 1gm IV premix 1 GM/50 ML BAG IV (08:59)
[2025-09-16] MEDS: VALPROIC ACID SYRUP 250 MG/5 ML UDC 875 MG GT ×2 (09:07→21:08)
[2025-09-16] MEDS: levETIRAcetam INJ 100 MG/ML VIAL 5ML 1500 MG IVP ×2 (09:08→20:51)
[2025-09-16] MEDS: METOPROLOL TARTRATE 25 MG TABLET 12.5 MG GT ×2 (09:09→21:05)
[2025-09-16] MEDS: POTASSIUM CHLORIDE 10% 20 MEQ/15 ML UDC 40 MEQ GT (11:11)
--- NOTE | 2025-09-16 11:50 | ESPR_ITS ---
Documentation for date of: 09/16/25 Subjective Subjective Interval history: Patient seen and examined at bedside. Continuing to wean oxygen. Will continue Flagyl and ceftriaxone. Exam Vital Signs Temp Pulse Resp BP Pulse Ox O2 Del Method O2 Flow Rate 97.0 F 95 24 H 106/68 95 Nasal Cannula 4 09/16/25 08:00 09/16/25 11:35 09/16/25 11:35 09/16/25 09:09 09/16/25 11:35 09/16/25 04:00 09/16/25 11:35 FiO2 45 09/16/25 04:00 Narrative Exam General: Chronically ill-appearing, shortened lower extremities, nonverbal. Neurologic: Cerebral palsy, nonverbal at baseline. HEENT: Normocephalic, atraumatic, mucous membranes moist. Pupils reactive to light. Heart: Regular rate and rhythm, normal S1 and S2, no murmurs. Lungs: Diffuse crackles bilaterally. Abdomen: Soft, nondistended, nontender, positive bowel sounds. No guarding or rebound tenderness. Extremities: Shortened lower extremities. No edema. 2+ radial and dorsalis pedis pulses bilaterally. Skin: Warm. Dry. No rash or ecchymoses. Objective Labs 09/16/25 05:53 09/16/25 05:53 Labs: Laboratory Results - last 24 hr 09/16/25 05:53 WBC 6.1 RBC 3.44 L Hgb 10.0 L Hct 31.3 L MCV 91 MCH 29.1 MCHC 31.9 RDW Std Deviation 41.8 Plt Count 143 D Neut % (Auto) 44 Lymph % (Auto) 27 [place] % (Auto) 12 Eos % (Auto) 0 Baso % (Auto) 2 Neut # (Auto) 2.7 Lymph # (Auto) 1.7 [place] # (Auto) 0.7 Eos # (Auto) 0.0 Baso # (Auto) 0.1 Immature Gran # (Auto) 0.87 H Absolute Nucleated RBC 0.00 Immature Gran % 14 H Nucleated RBC % 0 Sodium 146 H Potassium 3.4 Chloride 107 Carbon Dioxide 31.8 H Anion Gap 7 BUN 11 Creatinine 0.4 L Estim Creat Clear Calc 198.2 eGFR > 60 BUN/Creatinine Ratio 28 H Glucose 100 Calculated Osmolality 289 Calcium 8.9 Corrected Calcium 9.4 Phosphorus 3.1 Magnesium 2.1 Total Bilirubin 0.3 AST 26 ALT 17 Alkaline Phosphatase 69 Total Protein 6.1 Albumin 3.4 L Globulin 2.7 Albumin/Globulin Ratio 1.3 ABG Interpretation ABG results: 09/11/25 09/12/25 12:35 05:59 ABG pH 7.34 L ABG pCO2 49 H ABG pO2 80 L ABG HCO3 26 ABG O2 Saturation 96 ABG Base Excess 0 VBG pH 7.38 VBG pCO2 43 VBG pO2 49 VBG Base Excess 0 Quality Measures Quality Measures none Assessment & Plan Assessment Current Active Medications: Generic Name Dose Route Start Last Admin Trade Name Freq PRN Reason Stop Dose Admin Acetaminophen 650 mg 09/11/25 13:27 09/13/25 12:32 Acetaminophen 325 Mg Tablet PO 10/11/25 13:26 650 mg Q6H PRN Administration pain and fever >100.4 Hydrocodone Bitart/Acetaminophen 1 tab 09/11/25 13:27 09/12/25 05:03 Hydrocodone/Apap 5/325 Tablet PO 09/16/25 13:26 1 tab Q4HR PRN Administration PAIN SCALE 4-10(Mod-Sev Albuterol/Ipratropium 3 ml 09/11/25 15:00 09/16/25 11:12 Albuterol/Ipratropium (Duoneb) Rt Lisset 3 Ml Nebu INH 10/11/25 14:59 3 ml Q4HRRT KIKI Administration Guaifenesin 100 mg 09/12/25 14:00 09/16/25 05:25 Guaifenesin Syrup 200 Mg/10 Ml Udc GT 10/12/25 13:59 100 mg TID KIKI Administration Protocol Heparin Sodium (Porcine) 5,000 unit 09/11/25 14:00 09/14/25 05:11 Heparin Sod Inj 5000 Unit/Ml Vial SC 09/25/25 13:59 5,000 unit On Hold: 09/14/25 07:57 Q8HR KIKI Administration Metronidazole 500 mg in 100 mls @ 200 mls/hr 09/14/25 10:11 09/16/25 05:28 Flagyl 500 Mg Iv IV 09/21/25 10:10 200 mls/hr Q8HR KIKI Administration Ceftriaxone Sodium/Dextrose 1 gm in 50 mls @ 100 mls/hr 09/15/25 11:00 09/16/25 08:59 Rocephin/D5w 1gm Iv Premix IV 09/22/25 10:59 100 mls/hr QDAY KIKI Administration Levetiracetam 1,500 mg 09/11/25 21:00 09/16/25 09:08 Levetiracetam Inj 100 Mg/Ml Vial 5ml IVP 10/11/25 20:59 1,500 mg Q12HR KIKI Administration Metoclopramide HCl 5 mg 09/14/25 12:00 09/16/25 11:10 Metoclopramide Inj 5 Mg/Ml Vial 2 Ml IVP 10/14/25 11:59 5 mg Q6HR KIKI Administration Protocol Metoprolol Tartrate 12.5 mg 09/13/25 11:45 09/16/25 09:09 Metoprolol Tartrate 25 Mg Tablet GT 10/13/25 11:44 12.5 mg BID KIKI Administration Ondansetron HCl 4 mg 09/11/25 13:27 Ondansetron Inj 2 Mg/Ml Inj 2 Ml IVP 10/11/25 13:26 Q6H PRN NAUSEA OR VOMITING Protocol Pantoprazole Sodium 40 mg 09/11/25 13:45 09/16/25 09:08 Pantoprazole Inj 40 Mg Vial IVP 10/11/25 13:44 40 mg QDAY KIKI Administration Valproic Acid 875 mg 09/12/25 09:00 09/16/25 09:07 Valproic Acid Syrup 250 Mg/5 Ml Udc GT 10/12/25 08:59 875 mg BID KIKI Administration Plan Summary: 39-year-old male with past medical history of cerebral palsy (nonverbal), developmental delay, seizures, hypertension, GERD, left eye blindness, presenting to the ED on 09/11/25 for shortness of breath. Patient admitted 09/11/25 for sepsis secondary to bilateral pneumonia. # Acute hypoxic respiratory failure and # Sepsis secondary to # Pneumonia- aspiration potentially secondary to # GERD # Lactic acidosis. resolved Patient was brought to the ED with shortness of breath when he had O2 with 85% on room air, and required 4 L to reach 91 to 92%. Chest x-ray in ED showed bilateral perihilar pneumonia; exam reveals significant apical crackles bilaterally. Patient's WBC count was 12.8 on admission; combined with tachycardia at 128, tachypnea at 25, temperature of 103.4, lactate of 2.7, and DIDI (creatinine on admission is 1.3, his baseline is 0.7), patient met criteria for sepsis with multiple organ dysfunction syndrome, as he had a temperature above 100.4 on admission, was tachycardic and tachypneic, and had WBCs above 12,000; he also has a suspected source of infection, lactic acidosis, and evidence of 2 organs failing (lactic acidosis, and DIDI via creatinine). Sputum culture showed GNRs; BCx showed no growth at 48hours. 09/14/2025 physical exam showed potential tube feed like material coming from the mouth; suggestive of aspiration. 09/15/25- Sputum culture showed Proteus mirabilis Physical exam on 09/16/2025 was significant for bilateral crackles, consider additional aspiration. Patient currently on 4 L nasal cannula. Chest x-ray showed bilateral opacities, pending radiology read. Plan: Continue Ceftriaxone 1 g daily and metronidazole 500mg q8h DuoNebs and chest physiotherapy Q 4 hours Guaifenesin Wean oxygen Holding tube feeds in the presence of suspected aspiration Protonix 40 BID #Tachycardia Patient had HR 128 on admission; was 120 on 09/13/25 at 12:31 Patient still slightly tachycardic with a rate of 102 Consider in the presence of pneumonia Plan: Continue Metoprolol tartrate 12.5 BID #Hypertension Patient is on furosemide 20 and metoprolol succinate 50 for blood pressure. Plan: Continue Metoprolol tartrate 12.5; monitor BP #Seizures #Cerebral palsy #Developmental delay Patient is on valproic acid and Keppra at home for seizures. Plan: Continue home keppra and valproate Disposition: Med-Surg, continuing ceftriaxone and Flagyl, continuing chest physiotherapy and will hold tube feeds in the presence of suspected aspiration pneumonia. DVT prophylaxis: heparin 5000 subcu q8h GI prophylaxis: protonix 40 qday Diet: Holding tube feeds. Lines: PIV CODE STATUS: Full code Patient was seen and discussed with my attending physician Dr. Elio WORTHINGTON. Ifeanyi Miranda DO PGY-1. Attending Provider Attestation/Addendum I Jasmeet Ballard MD reviewed the note and agree with the resident's assessment & plan with modifications/additions/exceptions as below. I have personally reviewed labs, imaging, home meds/prior records, examined the patient, formulated and discussed management plan with the IM team. 39-year-old male with a history of cerebral palsy, blind, PEG dependent admitted for pneumonia noted to have significant crackles and respiratory distress currently on 4 L nasal cannula. Continue Rocephin and Flagyl, stop feeding tube due to concern for aspiration, recommend aggressive chest physiotherapy, repeat chest x-ray, continue Keppra and valproate.
--- NOTE | 2025-09-16 16:08 | XR_ITS ---
EXAMINATION: AP chest single view TECHNIQUE: AP portable semiupright chest single view Date and time: September 16, 2025, 1619 hours, comparison September 12, 2025 INDICATIONS: Difficulty breathing this week, history extensive pneumonia on film September 12, 2025 FINDINGS: There remains significant bilateral perihilar pneumonia Reduced inspiratory effort Mild osteopenia IMPRESSION: There remains significant bilateral perihilar pneumonia
[2025-09-17] VITALS (17 sets, daily range): BP systolic 93–109; BP diastolic 58–73; PULSE 77–106; RESP 14–22; TEMP 36.2–36.5; O2SAT 94–100
[2025-09-17] MEDS: METOCLOPRAMIDE INJ 5 MG/ML VIAL 2 ML IVP ×4 (01:25→17:41)
[2025-09-17] MEDS: ALBUTEROL/IPRATROPIUM (Duoneb) RT SOL 3 ML NEBU INH ×6 (03:26→22:08)
[2025-09-17 05:53] LABS: Basophils # (Auto) 0.1 Thou/mm3 (0.0-0.2); Basophils % (Auto) 1 % (0-2.5); Eosinophils # (Auto) 0.0 Thou/mm3 (0.0-0.5); Eosinophils % (Auto) 0 % (0-10); Hematocrit 33.3 % (41.0-53.0); Hemoglobin 10.7 g/dL (13.5-16.0); Immature Granulocytes Auto 1.15 Thou/mm3 (0.00-0.00); Lymphocytes # (Auto) 2.5 Thou/mm3 (1.0-4.8); Lymphocytes % (Auto) 32 % (10-50); Mean Corpuscular HGB Conc 32.1 g/dl (31.0-37.0); Mean Corpuscular Hemoglobin 29.6 pg (25.0-35.0); Mean Corpuscular Volume 92 fL (80-100); Monocytes # (Auto) 0.9 Thou/mm3 (0.0-0.8); Monocytes % (Auto) 12 % (0-12); Neutrophils # (Auto) 3.0 Thou/mm3 (1.8-7.7); Neutrophils % (Auto) 39 % (37-80); Nucleated Red Blood Cell # 0.05 Thou/mm3 (0.00-0.00); Nucleated Red Blood Cell % 1 /100 WBC (0); Platelet Count 213 Thou/mm3 (140-440); RDW Standard Deviation 43.8 fL (35.1-43.9); Red Blood Count 3.61 Miln/mm3 (4.50-5.90); White Blood Count 7.7 Thou/mm3 (3.8-10.6)
[2025-09-17] MEDS: metroNIDAZOLE/NS 500 MG IVPB 500 MG/100 ML BAG 200 MG IV (06:10)
[2025-09-17] MEDS: guaiFENesin SYRUP 200 MG/10 ML UDC 100 MG GT ×3 (06:11→23:59)
[2025-09-17 06:19] LABS: Alanine Aminotransferase 22 U/L (10-49); Albumin, Serum 3.5 gm/dL (3.5-5.0); Albumin/Globulin Ratio 1.2 (1.2-2.2); Alkaline Phosphatase 66 U/L (46-116); Anion Gap 10 (7-16); Aspartate Amino Transferase 37 U/L (0-34); BUN/Creatinine Ratio 35 Ratio (12-20); Bilirubin,Total 0.3 mg/dL (0.3-1.2); Blood Urea Nitrogen 14 mg/dL (9-23); Calcium 9.3 mg/dL (8.3-10.6); Calcium (Corrected) 9.7 mg/dL (8.5-10.1); Carbon Dioxide 29.2 mMol/L (20.0-31.0); Chloride 108 mMol/L (98-107); Creatinine (Component) 0.4 mg/dL (0.6-1.3); Estimated Creatinine Clearance 198.2 mL/min (>60); Globulin 3.0 gm/dL (2.3-3.5); Glucose 86 mg/dL (74-106); Osmolality,Calculated 291 (275-295); Potassium 4.2 mMol/L (3.4-5.1); Sodium 147 mMol/L (136-145); Total Protein 6.5 gm/dL (5.7-8.2); eGFR > 60 See Note
[2025-09-17] MEDS: VALPROIC ACID SYRUP 250 MG/5 ML UDC 875 MG GT ×2 (09:34→21:42)
[2025-09-17] MEDS: METOPROLOL TARTRATE 25 MG TABLET 12.5 MG GT ×2 (09:34→21:44)
[2025-09-17] MEDS: levETIRAcetam INJ 100 MG/ML VIAL 5ML 1500 MG IVP ×2 (09:36→21:18)
[2025-09-17] MEDS: cefTRIAXone/D5w 1gm IV premix 1 GM/50 ML BAG IV (09:36)
--- NOTE | 2025-09-17 10:22 | ESPR_ITS ---
<Statement entered by Christina Ballard MD - 09/17/25 20:41> Pt is seen at bedside, currently saturating on 3L oxygen. Pt's tachypnea and crackles on auscultation have improved from yesterday. Repeat CXR shows pulmonary edema as well as evidence of pneumonia. Pt's home lasix is resumed and will restart trickle feeds. Sputum culture grew proteus mirabilis, sensitive to rocephin. Therefore will continue Rocephin and will add azithromycin. Patient was seen and examined by me personally. I have directly supervised and reviewed documentation by the team resident and agree with its findings. ------- Plan of care was discussed with the attending, Dr. Elio Ballard, PGY-2 Documentation for date of: 09/17/25 Subjective Subjective Interval history: NAEO. spO2 95% 3L. Started lasix 20 mg daily. Previously held tube feeds 2/2 c/f aspiration PNA. Exam Vital Signs Temp Pulse Resp BP Pulse Ox O2 Del Method O2 Flow Rate 97.4 F 106 H 14 105/66 94 L Nasal Cannula 3 09/17/25 08:00 09/17/25 09:34 09/17/25 08:00 09/17/25 09:34 09/17/25 08:00 09/17/25 08:00 09/17/25 08:00 FiO2 45 09/16/25 04:00 Narrative Exam General: Chronically ill-appearing, shortened lower extremities, nonverbal. Neurologic: nonverbal at baseline, unable to follow commands at baseline HEENT: Normocephalic, atraumatic, mucous membranes moist. Pupils reactive to light. Heart: Regular rate and rhythm, normal S1 and S2, no murmurs. Lungs: Diffuse crackles bilaterally Abdomen: Soft, nondistended, nontender, positive bowel sounds. No guarding or rebound tenderness. Extremities: Contractures in b/l UE and LE. No edema. 2+ radial and dorsalis pedis pulses bilaterally. Skin: Warm. Dry. No rash or ecchymoses. Objective Labs 09/17/25 05:17 09/17/25 05:17 Labs: Laboratory Results - last 24 hr 09/17/25 05:17 WBC 7.7 RBC 3.61 L Hgb 10.7 L Hct 33.3 L MCV 92 MCH 29.6 MCHC 32.1 RDW Std Deviation 43.8 Plt Count 213 D Neut % (Auto) 39 Lymph % (Auto) 32 [place] % (Auto) 12 Eos % (Auto) 0 Baso % (Auto) 1 Neut # (Auto) 3.0 Lymph # (Auto) 2.5 [place] # (Auto) 0.9 H Eos # (Auto) 0.0 Baso # (Auto) 0.1 Immature Gran # (Auto) 1.15 H Absolute Nucleated RBC 0.05 H Immature Gran % 15 H Nucleated RBC % 1 H Sodium 147 H Potassium 4.2 D Chloride 108 H Carbon Dioxide 29.2 Anion Gap 10 BUN 14 Creatinine 0.4 L Estim Creat Clear Calc 198.2 eGFR > 60 BUN/Creatinine Ratio 35 H Glucose 86 Calculated Osmolality 291 Calcium 9.3 Corrected Calcium 9.7 Total Bilirubin 0.3 AST 37 H ALT 22 Alkaline Phosphatase 66 Total Protein 6.5 Albumin 3.5 Globulin 3.0 Albumin/Globulin Ratio 1.2 ABG Interpretation ABG results: 09/11/25 09/12/25 12:35 05:59 ABG pH 7.34 L ABG pCO2 49 H ABG pO2 80 L ABG HCO3 26 ABG O2 Saturation 96 ABG Base Excess 0 VBG pH 7.38 VBG pCO2 43 VBG pO2 49 VBG Base Excess 0 Quality Measures Quality Measures none Assessment & Plan Assessment Current Active Medications: Generic Name Dose Route Start Last Admin Trade Name Freq PRN Reason Stop Dose Admin Acetaminophen 650 mg 09/11/25 13:27 09/13/25 12:32 Acetaminophen 325 Mg Tablet PO 10/11/25 13:26 650 mg Q6H PRN Administration pain and fever >100.4 Albuterol/Ipratropium 3 ml 09/11/25 15:00 09/17/25 06:53 Albuterol/Ipratropium (Duoneb) Rt Lisset 3 Ml Nebu INH 10/11/25 14:59 3 ml Q4HRRT KIKI Administration Furosemide 20 mg 09/17/25 12:00 Furosemide 20 Mg Tablet GT 10/17/25 11:59 Q24H KIKI Guaifenesin 100 mg 09/12/25 14:00 09/17/25 06:11 Guaifenesin Syrup 200 Mg/10 Ml Udc GT 10/12/25 13:59 100 mg TID KIKI Administration Protocol Metronidazole 500 mg in 100 mls @ 200 mls/hr 09/14/25 10:11 09/17/25 06:10 Flagyl 500 Mg Iv IV 09/21/25 10:10 200 mls/hr Q8HR KIKI Administration Ceftriaxone Sodium/Dextrose 1 gm in 50 mls @ 100 mls/hr 09/15/25 11:00 09/17/25 09:36 Rocephin/D5w 1gm Iv Premix IV 09/22/25 10:59 100 mls/hr QDAY KIKI Administration Levetiracetam 1,500 mg 09/11/25 21:00 09/17/25 09:36 Levetiracetam Inj 100 Mg/Ml Vial 5ml IVP 10/11/25 20:59 1,500 mg Q12HR KIKI Administration Metoclopramide HCl 5 mg 09/14/25 12:00 09/17/25 06:07 Metoclopramide Inj 5 Mg/Ml Vial 2 Ml IVP 10/14/25 11:59 5 mg Q6HR KIKI Administration Protocol Metoprolol Tartrate 12.5 mg 09/13/25 11:45 09/17/25 09:34 Metoprolol Tartrate 25 Mg Tablet GT 10/13/25 11:44 12.5 mg BID KIKI Administration Ondansetron HCl 4 mg 09/11/25 13:27 Ondansetron Inj 2 Mg/Ml Inj 2 Ml IVP 10/11/25 13:26 Q6H PRN NAUSEA OR VOMITING Protocol Pantoprazole Sodium 40 mg 09/11/25 13:45 09/17/25 09:35 Pantoprazole Inj 40 Mg Vial IVP 10/11/25 13:44 40 mg QDAY KIKI Administration Valproic Acid 875 mg 09/12/25 09:00 09/17/25 09:34 Valproic Acid Syrup 250 Mg/5 Ml Udc GT 10/12/25 08:59 875 mg BID KIKI Administration Plan 39-year-old male with past medical history of cerebral palsy (nonverbal), developmental delay, seizures, hypertension, GERD, left eye blindness, presenting to the ED on 09/11/25 for shortness of breath. Patient admitted 09/11/25 for sepsis secondary to bilateral pneumonia. # Acute hypoxic respiratory failure and # Sepsis secondary to # Pneumonia- aspiration potentially secondary to # GERD # Lactic acidosis - resolved Patient was brought to the ED with shortness of breath when he had O2 with 85% on room air, and required 4 L to reach 91 to 92%. Chest x-ray in ED showed bilateral perihilar pneumonia; exam reveals significant apical crackles bilaterally. Patient's WBC count was 12.8 on admission; combined with tachycardia at 128, tachypnea at 25, temperature of 103.4, lactate of 2.7, and DIDI (creatinine on admission is 1.3, his baseline is 0.7), patient met criteria for sepsis with multiple organ dysfunction syndrome, as he had a temperature above 100.4 on admission, was tachycardic and tachypneic, and had WBCs above 12,000; he also has a suspected source of infection, lactic acidosis, and evidence of 2 organs failing (lactic acidosis, and DIDI via creatinine). Sputum culture showed GNRs; BCx showed no growth at 48hours. 09/14/2025 physical exam showed potential tube feed like material coming from the mouth; suggestive of aspiration. 09/15/25- Sputum culture showed Proteus mirabilis Currently on 3L NC Plan: - Continue Ceftriaxone 1 g daily (09/15 - ) - D/C metronidazole 500mg q8h (09/14 - ) - Start azithromycin 500 mg IV daily (09/17 - ) - Pending Legionella, streptococcus, and mycoplasma (send outs) - DuoNebs and chest physiotherapy Q 4 hours - Guaifenesin 100 mg GT TID - Wean oxygen as tolerated - Restart tube feeds - Pantoprazole 40 IV daily - Lasix 20 mg IV BID #Tachycardia HR 120s on admission, continued to have tachycardia i/s/o PNA Plan: - Metoprolol tartrate 12.5 BID #Hypertension Patient is on furosemide 20 and metoprolol succinate 50 for blood pressure. Plan: - Metoprolol tartrate 12.5 mg GT BID; monitor BP - Lasix 20 mg IV BID #Seizures #Cerebral palsy #Developmental delay Patient is on valproic acid and Keppra at home for seizures. Plan: - Keppra 1500 mg IV BID - Valproic acid 875 mg GT BID Checklist Dispo: Med-Surg, continuing ceftriaxone and Flagyl, continuing chest physiotherapy and will hold tube feeds in the presence of suspected aspiration pneumonia. Lines: PIV Diet: restart trickle feeds Bowel Reg: n/a VTE ppx: heparin SubQ GI ppx: pantoprazole 40 mg IV daily Pain mgmt: Tylenol PRN Code status: full Plan discussed with Dr. Dangelo Ballard and Dr. Lazara Jackson MD PGY1 Attending Provider Attestation/Addendum I Jasmeet Ballard MD reviewed the note and agree with the resident's assessment & plan with modifications/additions/exceptions as below. I have personally reviewed labs, imaging, home meds/prior records, examined the patient, formulated and discussed management plan with the IM team. 39-year-old male with a history of cerebral palsy, blind, PEG dependent admitted for pneumonia noted to have significant crackles and respiratory distress currently on 4 L nasal cannula. Repeat CXR did reveal diffuse bilateral pulmonary infiltrates. Continue Rocephin, discontinue Flagyl and will start on azithromycin, resume trickle tube feeding, recommend aggressive chest physiotherapy, repeat chest x-ray, continue Keppra and valproate. Will obtain TTE, start on Lasix 20 mg IV twice daily, can switch to p.o. likely tomorrow
[2025-09-17] MEDS: AZITHROMYCIN INJ 500 MG in SODIUM CHLORIDE 0.9% 250 ML 250 ML 250 MG IV (12:38)
[2025-09-17] MEDS: FUROSEMIDE INJ 10 MG/ML VIAL 2 ML 20 MG IVP ×2 (12:39→17:41)
[2025-09-17 13:25] LABS: Misc Send Out* See Sep Rpt
[2025-09-18] VITALS (11 sets, daily range): BP systolic 90–94; BP diastolic 56–69; PULSE 73–98; RESP 17–21; TEMP 35.9–37.2; O2SAT 95–100
[2025-09-18] MEDS: ALBUTEROL/IPRATROPIUM (Duoneb) RT SOL 3 ML NEBU INH ×3 (02:25→11:04)
[2025-09-18] MEDS: METOCLOPRAMIDE INJ 5 MG/ML VIAL 2 ML IVP ×3 (05:47→12:04)
[2025-09-18] MEDS: guaiFENesin SYRUP 200 MG/10 ML UDC 100 MG GT (05:49)
[2025-09-18 06:17] LABS: Basophils # (Auto) 0.1 Thou/mm3 (0.0-0.2); Basophils % (Auto) 1 % (0-2.5); Eosinophils # (Auto) 0.0 Thou/mm3 (0.0-0.5); Eosinophils % (Auto) 0 % (0-10); Hematocrit 35.2 % (41.0-53.0); Hemoglobin 11.2 g/dL (13.5-16.0); Immature Granulocytes Auto 1.34 Thou/mm3 (0.00-0.00); Lymphocytes # (Auto) 2.9 Thou/mm3 (1.0-4.8); Lymphocytes % (Auto) 32 % (10-50); Mean Corpuscular HGB Conc 31.8 g/dl (31.0-37.0); Mean Corpuscular Hemoglobin 28.9 pg (25.0-35.0); Mean Corpuscular Volume 91 fL (80-100); Monocytes # (Auto) 1.0 Thou/mm3 (0.0-0.8); Monocytes % (Auto) 12 % (0-12); Neutrophils # (Auto) 3.7 Thou/mm3 (1.8-7.7); Neutrophils % (Auto) 40 % (37-80); Nucleated Red Blood Cell # 0.07 Thou/mm3 (0.00-0.00); Nucleated Red Blood Cell % 1 /100 WBC (0); Platelet Count 262 Thou/mm3 (140-440); RDW Standard Deviation 42.8 fL (35.1-43.9); Red Blood Count 3.87 Miln/mm3 (4.50-5.90); White Blood Count 9.1 Thou/mm3 (3.8-10.6)
[2025-09-18 06:24] LABS: Alanine Aminotransferase 24 U/L (10-49); Albumin, Serum 3.7 gm/dL (3.5-5.0); Albumin/Globulin Ratio 1.2 (1.2-2.2); Alkaline Phosphatase 73 U/L (46-116); Anion Gap 8 (7-16); Aspartate Amino Transferase 31 U/L (0-34); BUN/Creatinine Ratio 34 Ratio (12-20); Bilirubin,Total 0.3 mg/dL (0.3-1.2); Blood Urea Nitrogen 17 mg/dL (9-23); Calcium 9.3 mg/dL (8.3-10.6); Calcium (Corrected) 9.5 mg/dL (8.5-10.1); Carbon Dioxide 33.1 mMol/L (20.0-31.0); Chloride 103 mMol/L (98-107); Creatinine (Component) 0.5 mg/dL (0.6-1.3); Estimated Creatinine Clearance 158.6 mL/min (>60); Globulin 3.2 gm/dL (2.3-3.5); Glucose 97 mg/dL (74-106); Magnesium 2.2 mg/dL (1.6-2.6); Osmolality,Calculated 288 (275-295); Phosphorous 4.8 mg/dL (2.4-5.1); Potassium 3.8 mMol/L (3.4-5.1); Sodium 144 mMol/L (136-145); Total Protein 6.9 gm/dL (5.7-8.2); eGFR > 60 See Note
[2025-09-18 07:07] LABS: OBS Card Lot # 23001; OBS Developer Lot # 23003; OBS Performed By RANGP2; OBS QC OK? Yes
[2025-09-18 07:34] LABS: Occult Blood, Stool Negative (Negative)
--- NOTE | 2025-09-18 08:02 | PD.RESPRO ---
Documentation for date of: 09/18/25 Exam Vital Signs Temp Pulse Resp BP Pulse Ox O2 Del Method O2 Flow Rate 96.7 F L 75 18 94/64 95 Nasal Cannula 2 09/18/25 07:56 09/18/25 07:56 09/18/25 07:56 09/18/25 07:56 09/18/25 07:56 09/18/25 04:00 09/18/25 06:55 FiO2 45 09/16/25 04:00 Narrative Exam General: Chronically ill-appearing, shortened lower extremities, nonverbal. Neurologic: nonverbal at baseline, unable to follow commands at baseline HEENT: Normocephalic, atraumatic, mucous membranes moist. Pupils reactive to light. Heart: Regular rate and rhythm, normal S1 and S2, no murmurs. Lungs: Diffuse crackles bilaterally Abdomen: Soft, nondistended, nontender, positive bowel sounds. No guarding or rebound tenderness. Extremities: Contractures in b/l UE and LE. No edema. 2+ radial and dorsalis pedis pulses bilaterally. Skin: Warm. Dry. No rash or ecchymoses. Objective Labs 09/18/25 05:38 09/18/25 05:38 Labs: Laboratory Results - last 24 hr 09/15/25 09/18/25 13:49 05:38 WBC 9.1 RBC 3.87 L Hgb 11.2 L Hct 35.2 L MCV 91 MCH 28.9 MCHC 31.8 RDW Std Deviation 42.8 Plt Count 262 D Neut % (Auto) 40 Lymph % (Auto) 32 [place] % (Auto) 12 Eos % (Auto) 0 Baso % (Auto) 1 Neut # (Auto) 3.7 Lymph # (Auto) 2.9 [place] # (Auto) 1.0 H Eos # (Auto) 0.0 Baso # (Auto) 0.1 Immature Gran # (Auto) 1.34 H Absolute Nucleated RBC 0.07 H Immature Gran % 15 H Nucleated RBC % 1 H Sodium 144 Potassium 3.8 Chloride 103 Carbon Dioxide 33.1 H Anion Gap 8 BUN 17 Creatinine 0.5 L Estim Creat Clear Calc 158.6 eGFR > 60 BUN/Creatinine Ratio 34 H Glucose 97 Calculated Osmolality 288 Calcium 9.3 Corrected Calcium 9.5 Phosphorus 4.8 Magnesium 2.2 Total Bilirubin 0.3 AST 31 ALT 24 Alkaline Phosphatase 73 Total Protein 6.9 Albumin 3.7 Globulin 3.2 Albumin/Globulin Ratio 1.2 Stool Occult Blood Negative ABG Interpretation ABG results: 09/11/25 09/12/25 12:35 05:59 ABG pH 7.34 L ABG pCO2 49 H ABG pO2 80 L ABG HCO3 26 ABG O2 Saturation 96 ABG Base Excess 0 VBG pH 7.38 VBG pCO2 43 VBG pO2 49 VBG Base Excess 0 Quality Measures Quality Measures none Assessment & Plan Assessment Current Active Medications: Generic Name Dose Route Start Last Admin Trade Name Freq PRN Reason Stop Dose Admin Acetaminophen 650 mg 09/11/25 13:27 09/13/25 12:32 Acetaminophen 325 Mg Tablet PO 10/11/25 13:26 650 mg Q6H PRN Administration pain and fever >100.4 Albuterol/Ipratropium 3 ml 09/11/25 15:00 09/18/25 06:55 Albuterol/Ipratropium (Duoneb) Rt Lisset 3 Ml Nebu INH 10/11/25 14:59 3 ml Q4HRRT KIKI Administration Furosemide 20 mg 09/17/25 12:00 09/18/25 06:00 Furosemide Inj 10 Mg/Ml Vial 2 Ml IVP 10/17/25 11:59 Not Given BIDD KIKI Guaifenesin 100 mg 09/12/25 14:00 09/18/25 05:49 Guaifenesin Syrup 200 Mg/10 Ml Udc GT 10/12/25 13:59 100 mg TID KIKI Administration Protocol Ceftriaxone Sodium/Dextrose 1 gm in 50 mls @ 100 mls/hr 09/15/25 11:00 09/17/25 09:36 Rocephin/D5w 1gm Iv Premix IV 09/22/25 10:59 100 mls/hr QDAY KIKI Administration Azithromycin 500 mg/ Sodium 250 mls @ 250 mls/hr 09/17/25 11:59 09/17/25 12:38 Chloride IV 09/24/25 11:58 250 mls/hr QDAY KIKI Administration Levetiracetam 1,500 mg 09/11/25 21:00 09/17/25 21:18 Levetiracetam Inj 100 Mg/Ml Vial 5ml IVP 10/11/25 20:59 1,500 mg Q12HR KIKI Administration Metoclopramide HCl 5 mg 09/14/25 12:00 09/18/25 05:47 Metoclopramide Inj 5 Mg/Ml Vial 2 Ml IVP 10/14/25 11:59 5 mg Q6HR KIKI Administration Protocol Metoprolol Tartrate 12.5 mg 09/13/25 11:45 09/17/25 21:44 Metoprolol Tartrate 25 Mg Tablet GT 10/13/25 11:44 12.5 mg BID KIKI Administration Ondansetron HCl 4 mg 09/11/25 13:27 Ondansetron Inj 2 Mg/Ml Inj 2 Ml IVP 10/11/25 13:26 Q6H PRN NAUSEA OR VOMITING Protocol Pantoprazole Sodium 40 mg 09/11/25 13:45 09/17/25 09:35 Pantoprazole Inj 40 Mg Vial IVP 10/11/25 13:44 40 mg QDAY KIKI Administration Valproic Acid 875 mg 09/12/25 09:00 09/17/25 21:42 Valproic Acid Syrup 250 Mg/5 Ml Udc GT 10/12/25 08:59 875 mg BID KIKI Administration Plan 39-year-old male with past medical history of cerebral palsy (nonverbal), developmental delay, seizures, hypertension, GERD, left eye blindness, presenting to the ED on 09/11/25 for shortness of breath. Patient admitted 09/11/25 for sepsis secondary to bilateral pneumonia. # Acute hypoxic respiratory failure and # Sepsis secondary to # Pneumonia- aspiration potentially secondary to # GERD # Lactic acidosis - resolved Patient was brought to the ED with shortness of breath when he had O2 with 85% on room air, and required 4 L to reach 91 to 92%. Chest x-ray in ED showed bilateral perihilar pneumonia; exam reveals significant apical crackles bilaterally. Patient's WBC count was 12.8 on admission; combined with tachycardia at 128, tachypnea at 25, temperature of 103.4, lactate of 2.7, and DIDI (creatinine on admission is 1.3, his baseline is 0.7), patient met criteria for sepsis with multiple organ dysfunction syndrome, as he had a temperature above 100.4 on admission, was tachycardic and tachypneic, and had WBCs above 12,000; he also has a suspected source of infection, lactic acidosis, and evidence of 2 organs failing (lactic acidosis, and DIDI via creatinine). Sputum culture showed GNRs; BCx showed no growth at 48hours. 09/14/2025 physical exam showed potential tube feed like material coming from the mouth; suggestive of aspiration. 09/15/25- Sputum culture showed Proteus mirabilis Currently on 3L NC Plan: - Continue Ceftriaxone 1 g daily (09/15 - ) - Azithromycin 500 mg IV daily (09/17 - ) - Pending Legionella, streptococcus, and mycoplasma (send outs) - DuoNebs and chest physiotherapy Q 4 hours - Guaifenesin 100 mg GT TID - Wean oxygen as tolerated - Restart tube feeds - Pantoprazole 40 IV daily - Lasix 20 mg IV BID #Tachycardia HR 120s on admission, continued to have tachycardia i/s/o PNA Plan: - Metoprolol tartrate 12.5 BID #Hypertension Patient is on furosemide 20 and metoprolol succinate 50 for blood pressure. Plan: - Metoprolol tartrate 12.5 mg GT BID; monitor BP - Lasix 20 mg IV BID #Seizures #Cerebral palsy #Developmental delay Patient is on valproic acid and Keppra at home for seizures. Plan: - Keppra 1500 mg IV BID - Valproic acid 875 mg GT BID Checklist Dispo: Med-Surg, continuing ceftriaxone and Flagyl, continuing chest physiotherapy and will hold tube feeds in the presence of suspected aspiration pneumonia. Lines: PIV Diet: restart trickle feeds Bowel Reg: n/a VTE ppx: heparin SubQ GI ppx: pantoprazole 40 mg IV daily Pain mgmt: Tylenol PRN Code status: full Plan discussed with Dr. Dangelo Ballard and Dr. Alejandro Jackson MD PGY1
[2025-09-18] MEDS: cefTRIAXone/D5w 1gm IV premix 1 GM/50 ML BAG IV (08:08)
[2025-09-18] MEDS: VALPROIC ACID SYRUP 250 MG/5 ML UDC 875 MG GT (08:09)
[2025-09-18] MEDS: levETIRAcetam INJ 100 MG/ML VIAL 5ML 1500 MG IVP (08:09)
[2025-09-18] MEDS: METOPROLOL TARTRATE 25 MG TABLET 12.5 MG GT (08:11)
--- NOTE | 2025-09-18 08:46 | PC.CC ---
Kapspargo 25mg approved by insurance through 03/14/26.
[2025-09-18] MEDS: AZITHROMYCIN INJ 500 MG in SODIUM CHLORIDE 0.9% 250 ML 250 ML 250 MG IV (09:03)
[2025-09-18 10:08] LABS: Misc Send Out* See Sep Rpt
--- NOTE | 2025-09-18 12:34 | PC.SS ---
SS set up transport per request of father. Ref #[id number] ETA
--- NOTE | 2025-09-18 13:32 | ESDS_ITS ---
<Statement entered by Ghazal Mcqueen DO - 09/18/25 15:51> I, Ghazal Mcqueen DO, attest that I was physically present for the street portions of the service and evaluated the patient with the resident and I reviewed and discussed the case with the resident and agree with the resident's findings and plans of care as documented above Planned Discharge Date 09/18/25 DS: Providers Provider Date of admission: 09/11/25 13:27 Primary care physician: Balbir Castillo MD Admitting Provider: Ghazal Mcqueen DO Attending Provider on Admission: Ghazal Mcqueen DO Consults: 09/11/25 13:38 Referral Registered Dietitian Routine Comment: 09/11/25 17:19 Referral Registered Dietitian Routine Comment: Attending Provider on DC: Tianna Jackson MD Discharging Provider: Tianna Jackson MD DS: Diagnosis Problem List Completed Was Problem List Reviewed/Reconciled?: Yes Hospital Course Hospital Course Hospital course: Hospital Course Mr. Knapp is a 39-year-old male with past medical history of cerebral palsy (nonverbal), developmental delay, seizures, hypertension, GERD, left eye blindness, and PEG tube dependence who presented to the ED on 09/11/25 for shortness of breath. Patient admitted 09/11/25 for AHRF and sepsis secondary to bilateral pneumonia. Patient was started on Azithromycin and Cefepime, Duonebs, chest physiotherapy, and restarted home meds. Sputum cultures grew Proteus mirabilis and antibiotics were tailored according to susceptibilities, Rocephin and Flagyl. Patient required HFNC to maintain appropriate spO2, then O2 was weaned as tolerated to room air. Metoprolol tartrate 12.5 BID and lasix 20 mg IV BID was started with improvement of lung sounds, vitals, and O2 requirements. Home O2 available PRN per patient's father Patient stable and medically cleared for discharge. Diagnoses # Acute hypoxic respiratory failure - improved # Sepsis - resolved # Pneumonia # GERD # Lactic acidosis - resolved #Tachycardia #Hypertension #Seizures #Cerebral palsy #Developmental delay Discharge Instructions - Continue taking Cefuroxime for 3 days - Continue using supplemental oxygen - Follow up with PCP within 1 week of discharge, if you do not have a primary care physician you can come see us at the [facility] by calling [phone] - You have been prescribed a blood thinner, which can cause bleeding so please be careful with falls, if you have an injury or fall please immediately go to the ED - Continue rest of medications as previously prescribed - Return to the ED or call EMS if symptoms return and/or worsen Tianna Jackson MD PGY1 Time Spent with Patient Time attestation: Total time spent providing and/or coordinating discharge services: Time spent: Greater than 30 minutes Exam Vital Signs Temp Pulse Resp BP Pulse Ox O2 Del Method O2 Flow Rate 98.9 F 96 19 91/56 L 96 Nasal Cannula 2 09/18/25 12:21 09/18/25 12:21 09/18/25 12:21 09/18/25 12:21 09/18/25 12:21 09/18/25 12:21 09/18/25 12:21 FiO2 45 09/16/25 04:00 Narrative Exam General: Chronically ill-appearing, shortened lower extremities, nonverbal. Neurologic: nonverbal at baseline, unable to follow commands at baseline HEENT: Normocephalic, atraumatic, mucous membranes moist. Pupils reactive to light. Heart: Regular rate and rhythm, normal S1 and S2, no murmurs. Lungs: Diffuse crackles bilaterally Abdomen: Soft, nondistended, nontender, positive bowel sounds. No guarding or rebound tenderness. Extremities: Contractures in b/l UE and LE. No edema. 2+ radial and dorsalis pedis pulses bilaterally. Skin: Warm. Dry. No rash or ecchymoses. Discharge Plan Plan Patient Disposition: HOME (Self Care) Patient condition on transfer: Stable Care Plan Goals: -Follow up with PCP within 1 week of discharge, if you do not have a primary care physician you can come see us at the [facility] by calling [phone] -You have been prescribed antibiotics for 3 more days please complete the course -Continue rest of medications as previously prescribed -Return to the ED or call EMS if symptoms return and/or worsen Prescriptions/Referrals Prescriptions/Med Rec: New guaifenesin 100 mg/5 mL Liquid 100 mg G-tube PRN PRN (Reason: Congestion) Qty: 118 0RF cefuroxime axetil 500 mg tablet 500 mg feeding tube BID 3 Days Qty: 6 0RF Continued famotidine [Pepcid] 20 MG tablet 20 mg feeding tube BID Qty: 0 Patient Comments: TO SUPPRESS GASTRIC ACID SECRETION glycopyrrolate [Robinul Forte] 2 MG tablet 2 mg feeding tube TID Qty: 0 levetiracetam [Keppra] 100 MG/ML solution 1,500 mg feeding tube BID Qty: 0 valproic acid (as sodium salt) [valproic acid] 250 MG/5 ML solution 875 mg G-tube BID Qty: 600 lactulose [Constulose] 10 gram/15 mL solution 15 ml feeding tube QDAY Patient Comments: TAKE 15 ML BY MOUTH ONCE DAILY FOR CONSTIPATION potassium chloride 8 mEq capsule, extended release 8 meq feeding tube .Q12pm metoprolol succinate 50 mg tablet extended release 24 hr 50 mg PO QDAY Patient Comments: TOME 1 TABLETA POR V A ORAL TODOS LOS D furosemide 20 mg tablet 20 mg feeding tube .Q12pm Patient Comments: TOME 1 TABLETA POR V A ORAL TODOS LOS D A MEDIODIA midodrine 10 mg tablet 10 mg feeding tube HS PRN (Reason: LOW BLOOD PRESSURE ) Patient Comments: TAKE 1 TABLET BY MOUTH ONCE DAILY AT BEDTIME Referrals: Balbir Castillo MD [Primary Care Provider, Family Practice] Patient/Caregiver Discharge Instructions Education Materials: ED Pneumonia (Adult) Print Language: Syriac Stand Alone Forms: Jayshree Award Info., Patient Portal Info Letter Discharge Order Discharge Orders: Discharge (Routine); Ordered 09/18/25 Ordered By: Christina Ballard Quality Discharge Quality Measures VTE prophylaxis
== END 2025-09-18 15:30 | disposition home or self-care (01) | DRG 871 ==
LOC: SERX 11:44 → SERHOLD 09-12 05:54 → S3NX 09-12 05:54
PROVIDERS: Registered Nurse General Practice; Admitting Provider Internal Medicine; Emergency Provider Family Medicine; PCP Family Medicine; Visit Provider Internal Medicine
DX: A41.59 Other Gram-negative sepsis (principal); J18.9 Pneumonia, unspecified organism; J96.01 Acute respiratory failure with hypoxia; E87.20 Acidosis, unspecified; N17.9 Acute kidney failure, unspecified; A41.9 Sepsis, unspecified organism; G40.909 Epilepsy, unspecified, not intractable, without status epilepticus; H54.62 Unqualified visual loss, left eye, normal vision right eye; G80.9 Cerebral palsy, unspecified; I10 Essential (primary) hypertension; K21.9 Gastro-esophageal reflux disease without esophagitis; Z93.1 Gastrostomy status; Z74.01 Bed confinement status; Z79.899 Other long term (current) drug therapy; Z87.01 Personal history of pneumonia (recurrent)
CPT/HCPCS: 36415; 36600; 51701; 71045; 80048; 80053; 80061; 81001; 82270; 82803; 83605; 83615; 83690; 83735; 83880; 84100; 84145; 84484; 85025; 85610; 85730; 86609; 86738; 87040; 87077; 87186; 87205; 87449; 87502; 87811; 93005; 93225; 94640; 94667; 94762; 96365; 96366; 96372; 96375; 96376; 99284; A9270; J0131; J0456; J0692; J0696; J1644; J1938; J1953; J2470; J2765; J3475; J3490; J7030; J7050; J7120; J7999; J1836

== ENCOUNTER 2025-10-15 23:00 | Inpatient (IN) | payer BC, MEDICAID, SELFPAY ==
--- NOTE | 2025-10-15 23:04 | PD.EDSOB ---
ED SOB =RME/HPI General Chief Complaint: Shortness of Breath/Dyspnea Stated Complaint: SHORTNESS OF BREATH Time Seen by Provider: 10/15/25 23:19 Arrival date/time: 10/15/25 23:00 Limitations: no limitations RME / HPI RME / HPI Narrative: Dr. Denton's Main ED Evaluation: 40yo male with a history of cerebral palsy (nonverbal), developmental delay, seizures, HTN, GERD, left eye blindness, and PEG tube dependence BIBA from home presents to the ED for a chief complaint of shortness of breath x today. Per EMS, patient has been having pneumonia off and on for the last couple months. With EMS, patient was initially saturating at 92% room air. Full ROS is unobtainable due to the patient being nonverbal at baseline. Related Data Home Medications ?Medication ?Instructions ?Recorded ?Confirmed famotidine 20 mg tablet (Pepcid) 20 mg feeding tube BID #0 tabs 08/02/14 09/11/25 glycopyrrolate 2 mg tablet 2 mg feeding tube TID #0 tabs 08/02/14 09/11/25 (Robinul Forte) levetiracetam 100 mg/mL oral 1,500 mg feeding tube BID ##0 08/02/14 09/11/25 solution (Keppra) valproic acid (as sodium salt) 250 875 mg G-tube BID Seizures #600 mL 10/12/15 09/12/25 mg/5 mL oral solution (valproic acid) lactulose 10 gram/15 mL oral 15 ml feeding tube QDAY 03/03/23 09/11/25 solution (Constulose) constipation furosemide 20 mg tablet 20 mg feeding tube .Q12pm 09/11/25 09/11/25 metoprolol succinate 50 mg 50 mg PO QDAY 09/11/25 09/11/25 tablet,extended release 24 hr potassium chloride 8 mEq 8 meq feeding tube .Q12pm 09/11/25 09/11/25 capsule,extended release midodrine 10 mg tablet 10 mg feeding tube HS PRN LOW 09/12/25 09/12/25 BLOOD PRESSURE Previous Rx's ?Medication ?Instructions ?Recorded guaifenesin 100 mg/5 mL oral liquid 100 mg (5 mL) G-tube PRN PRN 09/18/25 Congestion #118 mL Allergies Allergy/AdvReac Type Severity Reaction Status Date / Time phenobarbital Allergy Unknown Verified 10/15/25 23:10 Quinolones Allergy Unknown Verified 10/15/25 23:10 Review of Systems Review of Systems ROS Unobtainable: other (unobtainable due to the patient being nonverbal) ED Exam General Limitations: Present no limitations General appearance: Present alert and other (nonverbal) Head Head exam: Present atraumatic Eye Eye exam: Present normal appearance, PERRL and EOMI ENT ENT exam: Present normal exam, normal oropharynx and mucous membranes moist Neck Neck exam: Present normal inspection, full ROM and trachea midline Chest Chest inspection: Present normal inspection and symmetric chest wall rise Respiratory Respiratory exam: Present other (rhonchi bilaterally, tachypneic, no nasal flaring) Cardiovascular Cardiovascular exam: Present normal rhythm, tachycardia and normal heart sounds Abdominal Exam Abdominal exam: Present soft Extremities Exam Extremities exam: Present normal inspection, full ROM and other (contractures to BUE, is able to move his BLE) Neurological Exam Neurological exam: Present alert, CN II-XII intact and other (GCS 10 at baseline) Skin Skin exam: Present warm, dry, intact and normal color; Absent rash Course Course Course Narrative: 2311: Sepsis alert initiated. Orders made at this time are congruent with ED Adult Sepsis Order List. Re-evaluation is to be completed. CXR is ordered for determining the etiology of shortness of breath. 0029: Zosyn infused. Quality Measures Possible source: pulmonary Blood cultures ordered: yes Antibiotic ordered: Yes Pertinent labs: 10/15/25 23:41 Lactic Acid 3.0 H mMol/L (0.4-2.0) Procalcitonin 0.11 ng/ml (0.0-0.49) sepsis Orders Category Date Time Status Admit to Inpatient Status Routine Admission 10/16/25 02:54 Active Patient Condition Routine Admission 10/16/25 02:54 Ordered Aspiration precautions ONCE Care 10/16/25 03:00 Active Bedrest NOW Care 10/16/25 02:56 Active COVID-19 Screening Questionnaire NOW Care 10/16/25 01:56 Active Lining Layer STAT Care 10/15/25 23:20 Active Continuous Pulse Oximetry NOW Care 10/16/25 02:54 Active Continuous Pulse Oximetry STAT Care 10/15/25 23:20 Completed Decision to Admit X1 Care 10/16/25 01:56 Completed EKG (ED ONLY) *Do not use* NOW Care 10/15/25 23:15 Completed In and Out Catheter X1PRN Care 10/15/25 23:20 Completed Insert IV NOW Care 10/15/25 23:20 Completed Miscellaneous Nursing Order X1 Care 10/16/25 02:57 Active NPO STAT Care 10/15/25 23:20 Active Notify provider NEEDED Care 10/16/25 02:54 Active Seizure precautions NEEDED Care 10/16/25 02:56 Active Strict Intake and Output Routine Care 10/15/25 23:20 Ordered Referral Registered Dietitian Routine Cons 10/16/25 03:00 Active EKG (ED Only) Stat Exams 10/15/25 23:14 Draft XR chest 1V SEPSIS PROTOCOL Stat Exams 10/15/25 23:21 Completed BNP [B-Type Natriuretic Peptide] Stat Lab 10/15/25 23:41 Completed Blood Culture (Lab) Stat Lab 10/15/25 23:41 Received CBC AM DRAW Lab 10/16/25 05:00 Ordered CBC AM DRAW Lab 10/17/25 05:00 Ordered CBC AM DRAW Lab 10/18/25 05:00 Ordered CBC Stat Lab 10/15/25 23:41 Completed CMP [Comprehensive Metabolic Panel] Stat Lab 10/15/25 23:41 Completed COVID-19 Antigen (In-House) Stat Lab 10/15/25 23:15 Completed Comprehensive Metabolic Panel AM DRAW Lab 10/16/25 05:00 Ordered Comprehensive Metabolic Panel AM DRAW Lab 10/17/25 05:00 Ordered Comprehensive Metabolic Panel AM DRAW Lab 10/18/25 05:00 Ordered Drug Screen,Urine Stat Lab 10/15/25 23:30 Completed FLU A&B [Influenza A & B Rapid Panel] Stat Lab 10/15/25 23:15 Completed LDH (Lactate Dehydrogenase) Stat Lab 10/15/25 23:41 Completed Lactate (Lactic Acid) Stat Lab 10/15/25 23:41 Completed Lactic Acid, 3 HR Stat Lab 10/16/25 02:55 Ordered Lipase Stat Lab 10/15/25 23:41 Completed Magnesium AM DRAW Lab 10/16/25 05:00 Ordered Magnesium AM DRAW Lab 10/17/25 05:00 Ordered Magnesium AM DRAW Lab 10/18/25 05:00 Ordered Magnesium Stat Lab 10/15/25 23:41 Completed Partial Thromboplastin Time Stat Lab 10/15/25 23:41 Completed Phosphorous AM DRAW Lab 10/17/25 05:00 Ordered Phosphorous AM DRAW Lab 10/18/25 05:00 Ordered Phosphorous AM DRAW Lab 10/19/25 05:00 Ordered Phosphorous Stat Lab 10/15/25 23:41 Completed Procalcitonin Stat Lab 10/15/25 23:41 Completed Prothrombin Time with INR Stat Lab 10/15/25 23:41 Completed Troponin I Stat Lab 10/15/25 23:41 Completed UA, C/S IF [Urinalysis, C/S if Indicated] Stat Lab 10/15/25 23:16 Ordered Urinalysis, C/S if Indicated Stat Lab 10/15/25 23:30 Completed Acetaminophen Ivpb [Ofirmev Inj] Med 10/16/25 00:15 Active 1,000 mg in 100 ml IV Q6HR Albuterol/Ipratr Rt Lisset [Duoneb Rt Lisset] Med 10/15/25 23:22 Discontinued 3 ml INH X1 ONE Enoxaparin [Lovenox] Med 10/16/25 09:00 Active 40 mg SC QDAY Levofloxacin [Levaquin] Med 10/16/25 09:00 Active 750 mg GT QDAY Ondansetron Inj [Zofran Inj] Med 10/16/25 02:58 Active 4 mg IVP Q6H PRN Piper/Tazo 3.375 gm Premix [Zosyn] Med 10/15/25 23:20 Discontinued 3.375 gm in 50 ml IV X1 Potassium Phos [KPhos Additive] 22.5 mmol Med 10/16/25 03:00 Ordered Sodium Chloride 0.9% 500 ml [Ns] 500 ml IV X1 Ringers Lactated 1000 ml [Lactated Ringers] 1,000 ml Med 10/16/25 04:15 Active IV 75 mls/hr Ringers Lactated 1000 ml [Lactated Ringers] 1,000 ml Med 10/16/25 02:54 Active IV 999 mls/hr Vancomycin Inj 1.5 mg Med 10/15/25 23:20 Discontinued Sodium Chloride 0.9% 250 ml [Ns] 250 ml IV X1 guaiFENesin SYRUP [Robitussin Syrup] Med 10/16/25 03:00 Active 100 mg PO QID PRN Code Status Routine Oth 10/16/25 02:54 Ordered Chest Physiotherapy Treatment DAILY RT 10/16/25 09:00 Active Oxygen Delivery NOW RT 10/15/25 23:20 Active Vital Signs Vital signs: Vital Signs Temperature 101.9 F H 10/15/25 23:11 Pulse Rate 140 H 10/15/25 23:11 Respiratory Rate 20 10/15/25 23:11 Blood Pressure 143/91 H 10/15/25 23:11 Pulse Oximetry (%) 95 10/15/25 23:11 Oxygen Delivery Method Nasal Cannula 10/15/25 23:11 Oxygen Flow Rate 6 10/15/25 23:11 Shortness of Breath / Dyspnea MDM Narrative MDM Narrative:: Scribe Attestation: 10/15/25 - Jazmine Alvarenga am scribing for and in the presence of Dr. Vides. Patient presents with recurrent pneumonia. The patient's has been admitted frequently in the seen in the emergency department for worsening shortness of breath. He has a history of cerebral palsy and likely source for his recurrent pneumonia. Father states that today he had increased yellow mucus and he felt he was in respiratory distress. In the emergency department the patient meets sepsis criteria. He is given IV Tylenol, 30 mics per kilo bolus, and antibiotics. Patient recently was admitted in the hospital and therefore Vanco and Zosyn are ordered. Labs reviewed interpreted by me. The patient has a white count of 18,000 and a otherwise no thrombocytopenia. INR is normal and LFTs are essentially normal. Lactic acid is elevated at 3.0 with no evidence of UTI. Discussed with the hospitalist on-call who agrees to evaluate and admit the patient. Patient data External records reviewed:: [facility] previous records (Per chart review, patient was admitted here on 09/11/25 for pneumonia.) and EMS form Clinical information provided by:: EMS and family Social determinants that could affect healthcare access:: none Patient has the following chronic illnesses:: cerebral palsy (nonverbal), developmental delay, seizures, HTN, GERD, left eye blindness, and PEG tube dependence How is presenting disease/condition affected by chronic disease/condition?: exacerbated by Evaluation data The following diagnostics were reviewed and interpreted by me:: lab results, radiology exam(s) and EKG tracing(s) Lab and/or radiology exams considered but not ordered:: none Interpretation Summary: WBC elevated at 18.4, Lactic Acid elevated at 3.0, Phosphorus low at 1.6, K normal, Mg normal, Troponin normal, BNP normal, Procalcitonin normal, UA negative for UTI, UDS negative. COVID/Influenza negative. EKG done at 2337, sinus tachycardia, rate of 131, [place] interval: 108, low voltage, QTc: 361, no ST elevations or depressions, according to my interpretation. [facility] Report Signed Patient: NISHANT WHITEHEAD Record#: [id number] Birthdate: 1985 Age/Sex: 40 / M Location: [facility] Attending Dr: Ordering Physician: Mary Denton MD Date of Service: 10/15/25 Procedure(s): XR chest 1V SEPSIS PROTOCOL Accession Number(s): [id number] cc: Cuong Proctor MD; Mary Denton MD~ EXAMINATION: AP chest single view TECHNIQUE: AP portable semiupright chest single view Date and time: October 15, 2025, 11:34 p.m., comparison September 16, 2025 INDICATION: Sepsis protocol FINDINGS: Bilateral perihilar pneumonia Mild prominence left ventricle Moderate osteopenia IMPRESSION: Bilateral perihilar pneumonia Dictated By: Cuong Proctor MD Signed By: <Electronically signed by Cuong Proctor MD in OV> 10/15/25 5433 Medications / Prescriptions Medications or Prescriptions considered but not ordered:: none Medication administrations:: Medication Administration History Enoxaparin Sodium (Enoxaparin Sod Inj 40 Mg/0.4 Ml Syringe) 40 mg SC QDAY KIKI Stop: 10/30/25 08:59 Guaifenesin (Guaifenesin Syrup 200 Mg/10 Ml Udc) 100 mg PO QID PRN; Protocol PRN Reason: COUGH Stop: 11/15/25 02:59 Acetaminophen (Ofirmev Inj) 1,000 mg in 100 mls @ 250 mls/hr IV Q6HR KIKI Stop: 10/16/25 18:23 Last Infusion: 10/16/25 00:55 Dose: Infused Documented By: Admin: 10/16/25 00:29 Dose: 250 mls/hr Documented By: KEITH Lactated Ringer's (Lactated Ringers) 1,000 mls @ 999 mls/hr IV .Q1H1M ONE Stop: 10/16/25 03:54 Potassium Phosphate 22.5 mmol/ (Sodium Chloride) 507.5 mls @ 82.778 mls/hr IV X1 ONE Stop: 10/16/25 09:07 Lactated Ringer's (Lactated Ringers) 1,000 mls @ 75 mls/hr IV .[id number] KIKI Stop: 10/16/25 17:34 Levofloxacin (Levofloxacin 250 Mg Tablet) 750 mg GT QDAY [facility] Stop: 10/20/25 09:00 Ondansetron HCl (Ondansetron Inj 2 Mg/Ml Inj 2 Ml) 4 mg IVP Q6H PRN; Protocol PRN Reason: NAUSEA OR VOMITING Stop: 11/15/25 02:57 Discontinued Medications Albuterol/Ipratropium (Albuterol/Ipratropium (Duoneb) Rt Lisset 3 Ml Nebu) 3 ml INH X1 ONE Stop: 10/15/25 23:23 Last Admin: 10/15/25 23:47 Dose: 3 ml Documented By: AIDEN Piperacillin/Tazobactam/Dextrose (Zosyn) 3.375 gm in 50 mls @ 100 mls/hr IV X1 ONE Stop: 10/15/25 23:49 Last Infusion: 10/16/25 00:29 Dose: Infused Documented By: Admin: 10/15/25 23:52 Dose: 100 mls/hr Documented By: KEITH Vancomycin HCl 1.5 mg/ Sodium (Chloride) 250 mls @ 0 mls/hr IV X1 ONE Stop: 10/15/25 23:21 Last Infusion: 10/16/25 01:50 Dose: Infused Documented By: Admin: 10/16/25 00:02 Dose: 167 mls/hr Documented By: KEITH see above Consultations Consultation(s) initiated? (list below): Yes Consultation #1 (Physician, Specialty, Details): Discussed case with the resident physician, attending Dr. Clemens from Hospitalist service regarding admission. Discussed patients ED course, exam findings, labs, and radiology results. The Hospitalist will evaluate the patient for admission. Time: 01:54 Diagnosis Shortness of Breath Differential Diagnosis: community acquired pneumonia and other (COVID, Influenza, viral syndrome) Most likely diagnosis given after review of the tests above:: pneumonia, sepsis Admission Indicated Admission indicated?: indicated Admission Request Was there a request for admission?: Yes Admission Attestation Admission request attestation: Discussed case with [] from Hospitalist service regarding admission. Discussed patients ED course, exam findings, labs, and radiology results. The Hospitalist [agrees,declines] to accept the patient for admission. Disposition Plan Disposition Plan: Admit Critical Care Time Critical Care Time Critical Care Time: Yes Total Critical Care Time (min.): 40 Attestation: The high probability of sudden, clinically significant deterioration in the patient?s condition required the highest level of my preparedness to intervene urgently. The services I provided to this patient were to treat and/or prevent clinically significant deterioration. Services included the following: chart data review, reviewing nursing notes and/or old charts, documentation time, consultant teacher collaboration regarding findings and treatment options, medication orders and management, direct patient care, vital sign assessments and ordering, interpreting and reviewing diagnostic studies and lab tests. Aggregate critical care time includes only time during which I was engaged in work directly related to the patient?s care, as described above, whether at bedside or elsewhere in the Emergency Department. It did not include time spent performing other reported procedures or the services of residents, students, nurses or physician assistants. Discharge Plan Plan Patient Disposition: Admit Acute Care w/in Hospital Prescriptions/Referrals Prescriptions/Med Rec: No Action famotidine [Pepcid] 20 MG tablet 20 mg feeding tube BID Qty: 0 Patient Comments: TO SUPPRESS GASTRIC ACID SECRETION glycopyrrolate [Robinul Forte] 2 MG tablet 2 mg feeding tube TID Qty: 0 levetiracetam [Keppra] 100 MG/ML solution 1,500 mg feeding tube BID Qty: 0 valproic acid (as sodium salt) [valproic acid] 250 MG/5 ML solution 875 mg G-tube BID Qty: 600 lactulose [Constulose] 10 gram/15 mL solution 15 ml feeding tube QDAY Patient Comments: TAKE 15 ML BY MOUTH ONCE DAILY FOR CONSTIPATION potassium chloride 8 mEq capsule, extended release 8 meq feeding tube .Q12pm metoprolol succinate 50 mg tablet extended release 24 hr 50 mg PO QDAY Patient Comments: TOME 1 TABLETA POR V A ORAL TODOS LOS D furosemide 20 mg tablet 20 mg feeding tube .Q12pm Patient Comments: TOME 1 TABLETA POR V A ORAL TODOS LOS D A MEDIODIA midodrine 10 mg tablet 10 mg feeding tube HS PRN (Reason: LOW BLOOD PRESSURE ) Patient Comments: TAKE 1 TABLET BY MOUTH ONCE DAILY AT BEDTIME guaifenesin 100 mg/5 mL Liquid 100 mg G-tube PRN PRN (Reason: Congestion) Qty: 118 0RF Referrals: Balbir Castillo MD [Primary Care Provider, Family Practice] - In 1 week Problem List Clinical Impression: Sepsis, Pneumonia, Hypophosphatemia Patient/Caregiver Discharge Instructions Print Language: Latvian Stand Alone Forms: Jayshree Award Info., Patient Portal Info Letter
[2025-10-15 23:06] VITALS: PULSE 91; O2SAT 95; BMI 24.5
[2025-10-15 23:11] VITALS: BP 143/91; PULSE 140; RESP 20; TEMP 38.8; O2SAT 95
--- NOTE | 2025-10-15 23:14 | EKG_ITS ---
[facility] Test Date: 2025-10-15 Pat Name: NISHANT WHITEHEAD Department: Room: - Gender: Male Community Action Worker: : 1985 Requested By: Mary Goldstein Order Number: [id number] Reading MD: Mary Goldstein Measurements Intervals Dorothy Rate: 131 P: 22 MD: 108 QRS: 61 QRSD: 100 T: 73 QT: 284 QTc: 420 Interpretive Statements SINUS TACHYCARDIA WITH SHORT MD INTERVAL LOW QRS VOLTAGE IN PRECORDIAL LEADS [QRS DEFLECTION < 1.0 mV IN CHEST LEADS] PROBABLE LATERAL MYOCARDIAL INFARCTION , PROBABLY OLD [35 ms Q WAVE IN I/aVL/V5/V6] Compared to ECG 09/12/2025 06:01:07 Short MD interval now present Atrial flutter no longer present Myocardial infarct finding still present /store/S0/[id number]/ecg/[id number].pdf
[2025-10-15 23:15] VITALS: BP 143/91; PULSE 143; RESP 23; TEMP 38.8; O2SAT 95
--- NOTE | 2025-10-15 23:21 | XR_ITS ---
EXAMINATION: AP chest single view TECHNIQUE: AP portable semiupright chest single view Date and time: October 15, 2025, 11:34 p.m., comparison September 16, 2025 INDICATION: Sepsis protocol FINDINGS: Bilateral perihilar pneumonia Mild prominence left ventricle Moderate osteopenia IMPRESSION: Bilateral perihilar pneumonia
[2025-10-15 23:33] VITALS: PULSE 132
[2025-10-15 23:34] VITALS: PULSE 132; RESP 13; O2SAT 96
[2025-10-15 23:36] LABS: Collection Type, Urine Clean Catch; Squamous Epithelial Cell,Urine 0 /hpf (0-5)
[2025-10-15 23:47] VITALS: PULSE 125; RESP 22; O2SAT 100
[2025-10-15] MEDS: ALBUTEROL/IPRATROPIUM (Duoneb) RT SOL 3 ML NEBU INH (23:47)
[2025-10-15 23:49] LABS: Bilirubin,Urine Negative (Negative); Blood,Urine 2+ (Negative); Clarity,Urine Clear (Clear/Hazy); Color,Urine Yellow (Lt Yel-Yel); Culture Indicated,Urine Not Indicated; Glucose, Urine Negative (Negative); Ketones,Urine Trace (Negative); Leukocyte Esterase,Urine Negative (Negative); Nitrite,Urine Negative (Negative); PH,Urine 7.5 (5.0-7.0); Protein,Urine Trace (Neg - Trace); RBC,Urine 55 /hpf (0-3); Specific Gravity,Urine 1.022 (1.001-1.035); Urobilinogen,Urine 4.0 mg/dL (0.0-1.0); WBC,Urine 3 /hpf (0-5)
[2025-10-15] MEDS: PIPER/TAZO 3.375 GM PREMIX 3.375 GM/50 ML BAG IV (23:52)
[2025-10-15 23:56] LABS: Amphetamine/Methamp Scrn,U Negative (Negative); Barbiturate Screen,Urine Negative (Negative); Benzodiazepines Screen,Urine Negative (Negative); Benzoylecgonine Screen, Ur Negative (Negative); Fentanyl Screen,Urine Negative (Negative); Opiate Screen,Urine Negative (Negative); THC Screen,Urine Negative (Negative)
[2025-10-15 23:58] LABS: Lactate (Lactic Acid) 3.0 mMol/L (0.4-2.0)
[2025-10-16] VITALS (36 sets, daily range): BP systolic 98–128; BP diastolic 74–103; PULSE 100–154; RESP 9–96; TEMP 37.1–38.3; O2SAT 90–100; BMI 24.1
[2025-10-16 00:02] LABS: Influenza A Ag Negative; Influenza B Ag Negative
[2025-10-16 00:04] LABS: COVID-19 Antigen (In-House) Negative (Negative)
[2025-10-16 00:08] LABS: Basophils # (Auto) 0.1 Thou/mm3 (0.0-0.2); Basophils % (Auto) 0 % (0-2.5); Eosinophils # (Auto) 0.1 Thou/mm3 (0.0-0.5); Eosinophils % (Auto) 0 % (0-10); Hematocrit 41.4 % (41.0-53.0); Hemoglobin 13.9 g/dL (13.5-16.0); Immature Granulocytes Auto 0.09 Thou/mm3 (0.00-0.00); Lymphocytes # (Auto) 2.4 Thou/mm3 (1.0-4.8); Lymphocytes % (Auto) 13 % (10-50); Mean Corpuscular HGB Conc 33.6 g/dl (31.0-37.0); Mean Corpuscular Hemoglobin 29.0 pg (25.0-35.0); Mean Corpuscular Volume 86 fL (80-100); Monocytes # (Auto) 1.8 Thou/mm3 (0.0-0.8); Monocytes % (Auto) 10 % (0-12); Neutrophils # (Auto) 14.0 Thou/mm3 (1.8-7.7); Neutrophils % (Auto) 76 % (37-80); Nucleated Red Blood Cell # 0.00 Thou/mm3 (0.00-0.00); Nucleated Red Blood Cell % 0 /100 WBC (0); Platelet Count 136 Thou/mm3 (140-440); RDW Standard Deviation 40.7 fL (35.1-43.9); Red Blood Count 4.80 Miln/mm3 (4.50-5.90); White Blood Count 18.4 Thou/mm3 (3.8-10.6)
[2025-10-16 00:23] LABS: INR 1.1 (0.9-1.3); Partial Thromboplastin Time 27.1 Seconds (22.0-36.0); Prothrombin Time 11.2 Seconds (9.0-12.2)
[2025-10-16 00:28] LABS: B-Type Natriuretic Peptide 40 pg/mL (0-100)
[2025-10-16] MEDS: ACETAMINOPHEN IVPB 1,000 MG/100 ML VIAL 250 MG IV ×2 (00:29→22:48)
[2025-10-16 00:37] LABS: Alanine Aminotransferase 8 U/L (10-49); Albumin, Serum 4.3 gm/dL (3.5-5.0); Albumin/Globulin Ratio 1.1 (1.2-2.2); Alkaline Phosphatase 85 U/L (46-116); Anion Gap 11 (7-16); Aspartate Amino Transferase 15 U/L (0-34); BUN/Creatinine Ratio 12 Ratio (12-20); Bilirubin,Total 0.6 mg/dL (0.3-1.2); Blood Urea Nitrogen 7 mg/dL (9-23); Calcium 9.3 mg/dL (8.3-10.6); Calcium (Corrected) 9.3 mg/dL (8.5-10.1); Carbon Dioxide 26.0 mMol/L (20.0-31.0); Chloride 98 mMol/L (98-107); Creatinine (Component) 0.6 mg/dL (0.6-1.3); Estimated Creatinine Clearance 126.4 mL/min (>60); Globulin 3.8 gm/dL (2.3-3.5); Glucose 106 mg/dL (74-106); LDH (Lactate Dehydrogenase) 140 U/L (120-246); Lipase 35 U/L (12-53); Magnesium 2.1 mg/dL (1.6-2.6); Osmolality,Calculated 268 (275-295); Phosphorous 1.6 mg/dL (2.4-5.1); Potassium 3.5 mMol/L (3.4-5.1); Procalcitonin 0.11 ng/ml (0.0-0.49); Sodium 135 mMol/L (136-145); Total Protein 8.1 gm/dL (5.7-8.2); Troponin I < 0.020 ng/mL (0.0-0.045); eGFR > 60 See Note
--- NOTE | 2025-10-16 02:54 | PD.RESHP ---
Documentation for date of: 10/16/25 HPI History of Present Illness History of present illness: 40-year-old male with a history of cerebral palsy (nonverbal), developmental delay, seizures, hypertension, GERD, left eye blindness, and PEG tube dependence presents to the ED with shortness of breath, cough, and subjective fever for the past 2 days. The patient has a history of recurrent pneumonia, with the most recent hospitalization in September, where he required admission for pneumonia and sputum culture grew Proteus mirabilis. He uses oxygen at home as needed and has a bowel movement every 3 days. His parents report that over the past couple of days, they have noticed signs of discomfort including shivering, groaning, and gurgling. Upon arrival, the patient?s oxygen saturation was 92% on room air. A full review of systems is unobtainable due to the patient?s baseline nonverbal status. ED course: Initial vitals include T101.9, BP 143/91, HR 140, RR 20, O2 sat 95% on 6 L NC, however now on room air. Notable labs include WBC 18.4, platelets 236, sodium 135, potassium 3.4, BUN 7, creatinine 0.6, lactic acid 3, phosphorus 1.6, magnesium 2.1, LFTs within normal range. Chest x-ray shows bilateral perihilar pneumonia. UA clear. Pro-Juwan negative. Past medical history: As stated above. Allergies: Phenobarbital and quinolones Family history: Noncontributory. Social history: No alcohol use, no smoking, no illicit drug use. Patient admitted for sepsis secondary to community-acquired pneumonia. Review of Systems Review of Systems ROS Unobtainable: unobtainable due to mental status and unobtainable due to medical condition Exam Vital Signs Temp Pulse Resp BP Pulse Ox O2 Del Method O2 Flow Rate 101.0 F H 114 H 18 102/77 92 L Room Air 6 10/16/25 01:27 10/16/25:10/16/25:10/16/25:27 10/16/25:10/16/25 01:10/15/25 23:11 Narrative Exam General: Baseline mentation unable to assess due to medical condition, no acute distress, nonverbal due to medical condition HEENT: NC/AT, mucous membranes dry, bilateral sclera anicteric, left eye blindness Cardiovascular: regular rate and rhythm, S1/S2 present, no murmurs appreciated Pulmonary: Inspiratory crackles and rhonchi, bilateral decreased breath sounds Abdominal: soft, non-tender, non-distended, no rebound/guarding, normal bowel sounds present Musculoskeletal: normal ROM, no peripheral edema Skin: warm and dry, intact, chronic caf? [place] lait spots Neuro: CN II-XII intact, no focal deficits Results: Labs 10/16/25 03:15 10/16/25 03:15 Labs: Short CBC 10/15/25 Range/Units 23:41 WBC 18.4 H (3.8-10.6) Thou/mm3 Hgb 13.9 (13.5-16.0) g/dL Hct 41.4 (41.0-53.0) % Plt Count 136 L D (140-440) Thou/mm3 BMP 10/15/25 23:41 Sodium 135 L Potassium 3.5 Chloride 98 Carbon Dioxide 26.0 BUN 7 L Creatinine 0.6 Glucose 106 Calcium 9.3 Cardiac Enzymes 10/15/25 Range/Units 23:41 Troponin I < 0.020 (0.0-0.045) ng/mL Liver Function 10/15/25 Range/Units 23:41 Total Bilirubin 0.6 (0.3-1.2) mg/dL AST 15 (0-34) U/L ALT 8 L (10-49) U/L Alkaline Phosphatase 85 (46-116) U/L Albumin 4.3 (3.5-5.0) gm/dL Urine 10/15/25 Range/Units 23:30 Urine Color Yellow (Lt Yel-Yel) Urine Clarity Clear (Clear/Hazy) Urine pH 7.5 H (5.0-7.0) Ur Specific [place] 1.022 (1.001-1.035) Urine Protein Trace (Neg - Trace) Urine Glucose (UA) Negative (Negative) Quality Measures Quality Measures VTE prophylaxis and sepsis Current suspected stage: sepsis Possible source: pulmonary Blood cultures ordered: yes Antibiotic ordered: Yes Medications Home Medications and Allergies Home Medications ?Medication ?Instructions ?Recorded ?Confirmed ?Type famotidine 20 mg tablet (Pepcid) 20 mg feeding tube BID #0 tabs 08/02/14 09/11/25 History glycopyrrolate 2 mg tablet 2 mg feeding tube TID #0 tabs 08/02/14 09/11/25 History (Fernanda Dashawnpritesh) levetiracetam 100 mg/mL oral 1,500 mg feeding tube BID ##0 08/02/14 09/11/25 History solution (Keppra) valproic acid (as sodium salt) 250 875 mg G-tube BID Seizures #600 mL 10/12/15 09/12/25 History mg/5 mL oral solution (valproic acid) lactulose 10 gram/15 mL oral 15 ml feeding tube QDAY 03/03/23 09/11/25 History solution (Constulose) constipation furosemide 20 mg tablet 20 mg feeding tube .Q12pm 09/11/25 09/11/25 History metoprolol succinate 50 mg 50 mg PO QDAY 09/11/25 09/11/25 History tablet,extended release 24 hr potassium chloride 8 mEq 8 meq feeding tube .Q12pm 09/11/25 09/11/25 History capsule,extended release midodrine 10 mg tablet 10 mg feeding tube HS PRN LOW 09/12/25 09/12/25 History BLOOD PRESSURE Allergies Allergy/AdvReac Type Severity Reaction Status Date / Time phenobarbital Allergy Unknown Verified 10/15/25 23:10 Quinolones Allergy Unknown Verified 10/15/25 23:10 Visit Medications Acetaminophen (Ofirmev Inj) 1,000 mg in 100 mls @ 250 mls/hr IV Q6HR KIKI Stop: 10/16/25 18:23 Last Infusion: 10/16/25 00:55 Dose: Infused Discontinued Medications Albuterol/Ipratropium (Albuterol/Ipratropium (Duoneb) Rt Lisset 3 Ml Nebu) 3 ml INH X1 ONE Stop: 10/15/25 23:23 Last Admin: 10/15/25 23:47 Dose: 3 ml Piperacillin/Tazobactam/Dextrose (Zosyn) 3.375 gm in 50 mls @ 100 mls/hr IV X1 ONE Stop: 10/15/25 23:49 Last Infusion: 10/16/25 00:29 Dose: Infused Vancomycin HCl 1.5 mg/ Sodium (Chloride) 250 mls @ 0 mls/hr IV X1 ONE Stop: 10/15/25 23:21 Last Infusion: 10/16/25 01:50 Dose: Infused Assessment & Plan Plan 40-year-old male with a history of cerebral palsy (nonverbal), developmental delay, seizures, hypertension, GERD, left eye blindness, and PEG tube dependence presents to the ED with SOB, cough, and subjective fevers for the past 2 days. Patient admitted for sepsis secondary to community-acquired pneumonia. #Acute hypoxic respiratory failure 2/2 #Sepsis 2/2 #Community-acquired pneumonia Presents with SOB, cough, and subjective fever for the past 2 days. History of recurrent pneumonia, with the most recent hospitalization in 10/10, where he required admission for pneumonia and sputum culture grew Proteus mirabilis. Uses oxygen at home as needed Febrile on admission, T 101.9, required 6 L of oxygen however now on room air Pro-Juwan negative ABG showed pH 7.47, pO2 64 Plan ? Started on levofloxacin 750 mg GT for 5 days ? Sputum cultures ordered ? Follow-up with blood cultures ? Guaifenesin as needed ? Chest physiotherapy ordered ? Oxygen as needed #Seizures #Cerebral palsy #Developmental delay Patient is on valproic acid and Keppra at home for seizures. Plan ? Once med recon done resume home medications ? Seizure precautions #Hypophosphatemia Phos 1.6 ? K-Phos given ? Monitor and replete as necessary #Thrombocytopenia Platelets on admission 136 No concerns regarding bleeding at this time Likely reactive 2/2 acute illness Plan ? Monitor platelets with a.m. labs #GERD ? Protonix daily ? Aspiration precaution #Lactic acidosis, resolved Likely secondary to sepsis LA on admission 3.0 with repeat 1.5 Plan ? LR 1 L fluid bolus followed by maintenance 75 cc an hour Health Maintenance: Diet: Pending dietitian recommendation for G-tube feeds GI prophylaxis: Protonix daily DVT prophylaxis: Lovenox Antibiotics: Levofloxacin 750 mg GT x 5 days CODE STATUS: Full Disposition: Telemetry Case discussed with my attending Dr. Clemens, and senior resident, Dr. Scooby Rangel MD PGY-1 Attending Provider Attestation/Addendum After examination of the patient and review of the clinical data I feel that this patient needs admission to the hospital for further treatment/evaluation. Plan of care discussed with patient and is in agreement. I Kieran Clemens MD, attest that I was physically present for street portions of evaluation, and examined patient, labs and imagings and plan of care were discussed with IM residents team, and I agree with the findings and plans documented above.
[2025-10-16 02:55] LABS: Reflex Lactate? Y
[2025-10-16 03:30] LABS: Lactic Acid, 3 HR 1.5 mMol/L (0.4-2.0)
[2025-10-16] MEDS: RINGERS LACTATED 1000 ML 1,000 ML 999 ML IV (03:43)
[2025-10-16 03:44] LABS: Basophils # (Auto) 0.0 Thou/mm3 (0.0-0.2); Basophils % (Auto) 0 % (0-2.5); Eosinophils # (Auto) 0.1 Thou/mm3 (0.0-0.5); Eosinophils % (Auto) 1 % (0-10); Hematocrit 39.4 % (41.0-53.0); Hemoglobin 13.3 g/dL (13.5-16.0); Immature Granulocytes Auto 0.08 Thou/mm3 (0.00-0.00); Lymphocytes # (Auto) 2.0 Thou/mm3 (1.0-4.8); Lymphocytes % (Auto) 13 % (10-50); Mean Corpuscular HGB Conc 33.8 g/dl (31.0-37.0); Mean Corpuscular Hemoglobin 29.0 pg (25.0-35.0); Mean Corpuscular Volume 86 fL (80-100); Monocytes # (Auto) 1.4 Thou/mm3 (0.0-0.8); Monocytes % (Auto) 9 % (0-12); Neutrophils # (Auto) 11.6 Thou/mm3 (1.8-7.7); Neutrophils % (Auto) 76 % (37-80); Nucleated Red Blood Cell # 0.00 Thou/mm3 (0.00-0.00); Nucleated Red Blood Cell % 0 /100 WBC (0); Platelet Count 129 Thou/mm3 (140-440); RDW Standard Deviation 41.5 fL (35.1-43.9); Red Blood Count 4.58 Miln/mm3 (4.50-5.90); White Blood Count 15.2 Thou/mm3 (3.8-10.6)
[2025-10-16] MEDS: RINGERS LACTATED 1000 ML 1,000 ML 75 ML IV (03:44)
[2025-10-16 03:54] LABS: Base Excess 3 (-3-3); HCO3 27 mEq/L (20-26); Inspired Oxygen, FIO2 21 %; PCO2 38 mmHg (32.0-48.0); PO2 64 mmHg (83-108); pH, Arterial 7.47 (7.35-7.45)
[2025-10-16 03:57] LABS: Allen Test Performed/OK; O2 Saturation 93 % (91-98); Puncture Site Right Radial
[2025-10-16 04:08] LABS: Alanine Aminotransferase < 7 U/L (10-49); Albumin, Serum 4.1 gm/dL (3.5-5.0); Albumin/Globulin Ratio 1.2 (1.2-2.2); Alkaline Phosphatase 78 U/L (46-116); Anion Gap 9 (7-16); Aspartate Amino Transferase 14 U/L (0-34); BUN/Creatinine Ratio 8 Ratio (12-20); Bilirubin,Total 0.6 mg/dL (0.3-1.2); Blood Urea Nitrogen < 5 mg/dL (9-23); Calcium 9.1 mg/dL (8.3-10.6); Calcium (Corrected) 9.1 mg/dL (8.5-10.1); Carbon Dioxide 26.7 mMol/L (20.0-31.0); Chloride 102 mMol/L (98-107); Creatinine (Component) 0.6 mg/dL (0.6-1.3); Estimated Creatinine Clearance 126.4 mL/min (>60); Globulin 3.5 gm/dL (2.3-3.5); Glucose 100 mg/dL (74-106); Magnesium 2.2 mg/dL (1.6-2.6); Osmolality,Calculated 272 (275-295); Potassium 3.7 mMol/L (3.4-5.1); Sodium 138 mMol/L (136-145); Total Protein 7.6 gm/dL (5.7-8.2); eGFR > 60 See Note
[2025-10-16] MEDS: POT PHOS 15 mMol in NS 250 ML 15 MMOL/250 ML BAG 62.5 MMOL IV ×2 (04:15→09:40)
[2025-10-16] MEDS: ENOXAPARIN SOD INJ 40 MG/0.4 ML SYRINGE SC (09:40)
[2025-10-16] MEDS: VALPROIC ACID SYRUP 250 MG/5 ML UDC 875 MG PO ×2 (09:40→20:41)
[2025-10-16] MEDS: LEVOFLOXACIN 250 MG TABLET 750 MG GT (09:40)
--- NOTE | 2025-10-16 11:16 | ESPR_ITS ---
<Statement entered by Primo Randolph MD - 10/16/25 15:52> Patient was examined and case was reviewed with team including attending physician. Note reviewed, I agree with most of its contents and agree with the patient's care. Patient seen today at the bedside in the ICU found awake, alert. Currently on Antibiotic therapy for AHRF secondary pneumonia, will continue to follow up cultures and adjust Abx therapy as they result, is currently on room air with no oxygen requirements at presents. Will initiate tube feeds at this time. Father who was at bedside stated the patient looks exponentially better compared to how he was in previous admission around 3 weeks ago. Will continue to monitor at this time. Case discussed with my attending Dr. Edenilson Randolph MD PGY-2 Documentation for date of: 10/16/25 Subjective Subjective Interval history: Patient was seen this morning at the bedside. Patient currently receiving antibiotic therapy for acute hypoxic respiratory failure secondary to pneumonia, with ongoing follow-up of cultures to guide adjustments in antibiotic regimen if need. Patient is stable on room air with no oxygen requirements at this time. Tube feeds will be started. Patient's father, who was present at the bedside, reported that patient appears significantly improved compared to his condition during the previous admission about three weeks ago. Exam Vital Signs Temp Pulse Resp BP Pulse Ox O2 Del Method O2 Flow Rate 98.8 F 100 19 105/74 94 L Room Air 6 10/16/25 06:10 10/16/25 03:50 10/16/25 03:50 10/16/25 06:10 10/16/25 06:10 10/16/25 03:50 10/15/25 23:11 Narrative Exam Physical Exam General: Sleeping comfortably. No acute distress. Nonverbal at baseline. HEENT: Normocephalic, atraumatic, mucous membranes dry, bilateral sclera anicteric, left eye blindness. Heart: Regular rate and rhythm, no murmurs. Non-labored respirations, symmetric chest rise, no use of accessory muscles. Lungs: Bilateral inspiratory crackles and rhonchi on auscultation. Abdomen: Soft, nondistended, nontender. No guarding or rebound tenderness. PEG tube in place. Neurologic: Alert and oriented x3, no gross neurological deficit, and patient able to move all 4 extremities. Extremities: No edema. Skin: No rash or ecchymoses. Objective Labs 10/18/25 04:54 10/18/25 04:54 Labs: Laboratory Results - last 24 hr 10/15/25 10/15/25 10/15/25 23:15 23:30 23:41 WBC 18.4 H RBC 4.80 Hgb 13.9 Hct 41.4 MCV 86 MCH 29.0 MCHC 33.6 RDW Std Deviation 40.7 Plt Count 136 L D Neut % (Auto) 76 Lymph % (Auto) 13 [place] % (Auto) 10 Eos % (Auto) 0 Baso % (Auto) 0 Neut # (Auto) 14.0 H Lymph # (Auto) 2.4 [place] # (Auto) 1.8 H Eos # (Auto) 0.1 Baso # (Auto) 0.1 Immature Gran # (Auto) 0.09 H Absolute Nucleated RBC 0.00 Immature Gran % 1 H Nucleated RBC % 0 PT 11.2 INR 1.1 APTT 27.1 Puncture Site ABG pH ABG pCO2 ABG pO2 ABG HCO3 ABG O2 Saturation ABG Base Excess FiO2 Sodium 135 L Potassium 3.5 Chloride 98 Carbon Dioxide 26.0 Anion Gap 11 BUN 7 L Creatinine 0.6 Estim Creat Clear Calc 126.4 eGFR > 60 BUN/Creatinine Ratio 12 Glucose 106 Calculated Osmolality 268 L Lactic Acid 3.0 H Calcium 9.3 Corrected Calcium 9.3 Phosphorus 1.6 L Magnesium 2.1 Total Bilirubin 0.6 AST 15 ALT 8 L Alkaline Phosphatase 85 Lactate Dehydrogenase 140 Troponin I < 0.020 B-Natriuretic Peptide 40 Total Protein 8.1 Albumin 4.3 Globulin 3.8 H Albumin/Globulin Ratio 1.1 L Lipase 35 Procalcitonin 0.11 Ur Collection Type Clean Catch Urine Color Yellow Urine Clarity Clear Urine pH 7.5 H Ur Specific [place] 1.022 Urine Protein Trace Urine Glucose (UA) Negative Urine Ketones Trace Urine Blood 2+ A Urine Nitrite Negative Urine Bilirubin Negative Urine Urobilinogen (Auto) 4.0 Ur Leukocyte Esterase Negative Urine RBC 55 H Urine WBC 3 Ur Squamous Epith Cells 0 Urine Bacteria None Ur Culture Indicated? Not Indicated Urine Opiates Screen Negative Urine Fentanyl Screen Negative Ur Barbiturates Screen Negative U Amphetamin/Meth Scrn Negative U Benzodiazepines Scrn Negative U Cocaine Metab Screen Negative U Marijuana (THC) Screen Negative Influenza A (Rapid) Negative Influenza B (Rapid) Negative SARS-CoV-2 Ag (Rapid) Negative 10/16/25 10/16/25 03:15 03:50 WBC 15.2 H RBC 4.58 Hgb 13.3 L Hct 39.4 L MCV 86 MCH 29.0 MCHC 33.8 RDW Std Deviation 41.5 Plt Count 129 L Neut % (Auto) 76 Lymph % (Auto) 13 [place] % (Auto) 9 Eos % (Auto) 1 Baso % (Auto) 0 Neut # (Auto) 11.6 H Lymph # (Auto) 2.0 [place] # (Auto) 1.4 H Eos # (Auto) 0.1 Baso # (Auto) 0.0 Immature Gran # (Auto) 0.08 H Absolute Nucleated RBC 0.00 Immature Gran % 1 H Nucleated RBC % 0 PT INR APTT Puncture Site Right Radial ABG pH 7.47 H ABG pCO2 38 ABG pO2 64 L ABG HCO3 27 H ABG O2 Saturation 93 ABG Base Excess 3 FiO2 21 Sodium 138 Potassium 3.7 Chloride 102 Carbon Dioxide 26.7 Anion Gap 9 BUN < 5 L Creatinine 0.6 Estim Creat Clear Calc 126.4 eGFR > 60 BUN/Creatinine Ratio 8 L Glucose 100 Calculated Osmolality 272 L Lactic Acid 1.5 Calcium 9.1 Corrected Calcium 9.1 Phosphorus Magnesium 2.2 Total Bilirubin 0.6 AST 14 ALT < 7 L Alkaline Phosphatase 78 Lactate Dehydrogenase Troponin I B-Natriuretic Peptide Total Protein 7.6 Albumin 4.1 Globulin 3.5 Albumin/Globulin Ratio 1.2 Lipase Procalcitonin Ur Collection Type Urine Color Urine Clarity Urine pH Ur Specific [place] Urine Protein Urine Glucose (UA) Urine Ketones Urine Blood Urine Nitrite Urine Bilirubin Urine Urobilinogen (Auto) Ur Leukocyte Esterase Urine RBC Urine WBC Ur Squamous Epith Cells Urine Bacteria Ur Culture Indicated? Urine Opiates Screen Urine Fentanyl Screen Ur Barbiturates Screen U Amphetamin/Meth Scrn U Benzodiazepines Scrn U Cocaine Metab Screen U Marijuana (THC) Screen Influenza A (Rapid) Influenza B (Rapid) SARS-CoV-2 Ag (Rapid) ABG Interpretation ABG results: 10/16/25 03:50 ABG pH 7.47 H ABG pCO2 38 ABG pO2 64 L ABG HCO3 27 H ABG O2 Saturation 93 ABG Base Excess 3 Quality Measures Quality Measures VTE prophylaxis and sepsis Current suspected stage: ruled out Possible source: pulmonary Blood cultures ordered: yes Antibiotic ordered: Yes Assessment & Plan Assessment Current Active Medications: Generic Name Dose Route Start Last Admin Trade Name Freq PRN Reason Stop Dose Admin Docusate Sodium 100 mg 10/16/25 09:00 10/16/25 10:12 Docusate Sod Liqd 100 Mg/10 Ml Udc GT 11/15/25 08:59 Not Given BID KIKI Protocol Enoxaparin Sodium 40 mg 10/16/25 09:00 10/16/25 09:40 Enoxaparin Sod Inj 40 Mg/0.4 Ml Syringe SC 10/30/25 08:59 40 mg QDAY KIKI Administration Guaifenesin 100 mg 10/16/25 03:00 Guaifenesin Syrup 200 Mg/10 Ml Udc PO 11/15/25 02:59 QID PRN COUGH Protocol Acetaminophen 1,000 mg in 100 mls @ 250 mls/hr 10/16/25 00:15 10/16/25 00:55 Ofirmev Inj IV 10/16/25 18:23 Infused Q6HR KIKI Infusion Lactated Ringer's 1,000 mls @ 75 mls/hr 10/16/25 04:15 10/16/25 03:44 Lactated Ringers IV 10/16/25 17:34 75 mls/hr .[id number] KIKI Administration Potassium Phosphate 15 mmol in 250 mls @ 62.5 mls/hr 10/16/25 08:00 10/16/25 09:40 Pot Phos 15 Mmol In Ns 250 Ml IV 10/16/25 11:59 62.5 mls/hr X1 ONE Administration Levetiracetam 1,500 mg 10/16/25 09:00 10/16/25 09:40 Levetiracetam 250 Mg Tablet GT 11/15/25 08:59 1,500 mg BID KIKI Administration Levofloxacin 750 mg 10/16/25 09:00 10/16/25 09:40 Levofloxacin 250 Mg Tablet GT 10/20/25 09:00 750 mg QDAY KIKI Administration Ondansetron HCl 4 mg 10/16/25 02:58 Ondansetron Inj 2 Mg/Ml Inj 2 Ml IVP 11/15/25 02:57 Q6H PRN NAUSEA OR VOMITING Protocol Pantoprazole Sodium 40 mg 10/16/25 03:25 10/16/25 03:46 Pantoprazole Inj 40 Mg Vial IVP 11/15/25 03:24 40 mg QDAY KIKI Administration Polyethylene Glycol 17 gm 10/16/25 09:00 10/16/25 10:13 Polyethylene Glycol 17 Gm Packet GT 11/15/25 08:59 Not Given QDAY KIKI Valproic Acid 875 mg 10/16/25 09:00 10/16/25 09:40 Valproic Acid Syrup 250 Mg/5 Ml Udc PO 11/15/25 08:59 875 mg BID KIKI Administration Plan 40-year-old male with a history of cerebral palsy (nonverbal), developmental delay, seizures, hypertension, GERD, left eye blindness, and PEG tube dependence presents to the ED with SOB, cough, and subjective fevers for the past 2 days. Patient admitted for sepsis secondary to community-acquired pneumonia. #Acute hypoxic respiratory failure 2/2 #Community-acquired pneumonia #Sepsis ruled out Presents with SOB, cough, and subjective fever for the past 2 days. History of recurrent pneumonia, with the most recent hospitalization in 10/10, where he required admission for pneumonia and sputum culture grew Proteus mirabilis. Uses oxygen at home as needed Febrile on admission, T 101.9, required 6 L of oxygen however now on room air Pro-Juwan negative ABG showed pH 7.47, pO2 64 Plan ? Started on levofloxacin 750 mg GT for 5 days ? Sputum cultures pending ? Blood cultures pending ? Guaifenesin as needed ? Chest physiotherapy ordered ? Oxygen as needed #Seizures #Cerebral palsy #Developmental delay Patient is on valproic acid and Keppra at home for seizures. Plan ? Resumed Valproic acid and Keppra ? Seizure precautions #Hypophosphatemia Phos 1.6 ? K-Phos given ? Monitor and replete as necessary #Thrombocytopenia Platelets on admission 136 No concerns regarding bleeding at this time Likely reactive 2/2 acute illness Plan ? Monitor platelets with a.m. labs #GERD ? Protonix daily ? Aspiration precaution #Lactic acidosis, resolved Likely secondary to sepsis LA on admission 3.0 with repeat 1.5 Plan ? LR 1 L fluid bolus followed by maintenance 75 cc an hour Health Maintenance: Diet: G-tube feeds GI prophylaxis: Protonix daily DVT prophylaxis: Lovenox Antibiotics: Levofloxacin 750 mg GT x 5 days CODE STATUS: Full Disposition: Telemetry Patient plan of care was discussed with the senior resident, Dr. Ken Randolph, and attending physician, Dr. Pyle. Jr [place], PGY-1 Attending Provider Attestation/Addendum I have examined the patient, reviewed labs and imaging findings, discussed the case with the resident(s), and reviewed entered orders. I agree with the plan of care as outlined in this note. Dr. Edenilson MD
[2025-10-16] MEDS: METOCLOPRAMIDE INJ 5 MG/ML VIAL 2 ML IVP (17:53)
[2025-10-16] MEDS: HYDROcodone/APAP 5/325 TABLET 1 TAB PO (21:03)
[2025-10-17] VITALS (9 sets, daily range): BP systolic 91–117; BP diastolic 70–79; PULSE 99–149; RESP 9–40; TEMP 36.9–37.6; O2SAT 95–97; BMI 24.1
[2025-10-17] MEDS: METOCLOPRAMIDE INJ 5 MG/ML VIAL 2 ML IVP ×4 (00:10→17:16)
[2025-10-17 04:59] LABS: Basophils # (Auto) 0.0 Thou/mm3 (0.0-0.2); Basophils % (Auto) 0 % (0-2.5); Eosinophils # (Auto) 0.1 Thou/mm3 (0.0-0.5); Eosinophils % (Auto) 1 % (0-10); Hematocrit 38.8 % (41.0-53.0); Hemoglobin 12.6 g/dL (13.5-16.0); Immature Granulocytes Auto 0.05 Thou/mm3 (0.00-0.00); Lymphocytes # (Auto) 2.3 Thou/mm3 (1.0-4.8); Lymphocytes % (Auto) 21 % (10-50); Mean Corpuscular HGB Conc 32.5 g/dl (31.0-37.0); Mean Corpuscular Hemoglobin 28.8 pg (25.0-35.0); Mean Corpuscular Volume 89 fL (80-100); Monocytes # (Auto) 1.3 Thou/mm3 (0.0-0.8); Monocytes % (Auto) 11 % (0-12); Neutrophils # (Auto) 7.3 Thou/mm3 (1.8-7.7); Neutrophils % (Auto) 67 % (37-80); Nucleated Red Blood Cell # 0.00 Thou/mm3 (0.00-0.00); Nucleated Red Blood Cell % 0 /100 WBC (0); Platelet Count 133 Thou/mm3 (140-440); RDW Standard Deviation 43.9 fL (35.1-43.9); Red Blood Count 4.37 Miln/mm3 (4.50-5.90); White Blood Count 10.9 Thou/mm3 (3.8-10.6)
[2025-10-17 06:20] LABS: Alanine Aminotransferase < 7 U/L (10-49); Albumin, Serum 4.0 gm/dL (3.5-5.0); Alkaline Phosphatase 71 U/L (46-116); Anion Gap 10 (7-16); Aspartate Amino Transferase 16 U/L (0-34); BUN/Creatinine Ratio 12 Ratio (12-20); Bilirubin,Total 0.4 mg/dL (0.3-1.2); Blood Urea Nitrogen 6 mg/dL (9-23); Calcium 9.2 mg/dL (8.3-10.6); Calcium (Corrected) 9.2 mg/dL (8.5-10.1); Carbon Dioxide 25.4 mMol/L (20.0-31.0); Chloride 107 mMol/L (98-107); Creatinine (Component) 0.5 mg/dL (0.6-1.3); Estimated Creatinine Clearance 145.3 mL/min (>60); Glucose 97 mg/dL (74-106); Magnesium 2.0 mg/dL (1.6-2.6); Osmolality,Calculated 280 (275-295); Phosphorous 3.8 mg/dL (2.4-5.1); Potassium 4.0 mMol/L (3.4-5.1); Sodium 142 mMol/L (136-145); eGFR > 60 See Note
[2025-10-17] MEDS: VALPROIC ACID SYRUP 250 MG/5 ML UDC 875 MG PO ×2 (09:43→21:57)
[2025-10-17] MEDS: ENOXAPARIN SOD INJ 40 MG/0.4 ML SYRINGE SC (09:44)
[2025-10-17] MEDS: LEVOFLOXACIN 250 MG TABLET 750 MG GT (09:44)
[2025-10-17] MEDS: DOCUSATE SOD LIQD 100 MG/10 ML UDC GT ×2 (09:44→21:57)
[2025-10-17] MEDS: POLYETHYLENE GLYCOL 17 GM PACKET GT (09:52)
--- NOTE | 2025-10-17 11:03 | PC.SS ---
PHOTO STYLIST attempted phone call with patient's mother to conduct initial assessment. No response. PHOTO STYLIST attempted phone call with patient's father, Berto Knapp to conduct initial assessment. No response. PHOTO STYLIST utilized formulation scientist services during phone call attempts. PHOTO STYLIST to attempt phone contact at later time.
--- NOTE | 2025-10-17 11:11 | PC.SS ---
MAILROOM ASSOCIATE conducted bedside contact with the patient conduct initial assessment and to discuss discharge planning.? MAILROOM ASSOCIATE conducted phone contact with patient?s sister, Radha Knapp ; to conduct assessment.? Patient is non-verbal, developmentally delayed.? Patient resides at home with parents, Mary and Berto Knapp.? Patient utilizes a wheelchair for mobility.? Patient has access to home oxygen.? Patient requires assistance with the completion of ADL?s.? Patient is aligned with [facility].? The patient is not conserved.? Patient?s surrogate medical decision maker is mother, Mary Knapp .? The patient?s PCP is Dr. Castillo.? The patient does not possess any specialty providers.? The patient does not participate with dialysis.? Patient utilizes [facility] for medication services.? Discharge plan is for the patient to return home at the time of discharge.? Family will provide transportation on behalf of the patient.? No discharge needs identified by the patient?s sister.? No further intervention required at this time, delinquency prevention social worker will be available to address any further concerns.? Next of Kin: Mary Knapp D/C Plan: Home
--- NOTE | 2025-10-17 11:52 | ESPR_ITS ---
<Statement entered by Shannen Garibay MD - 10/30/25 09:16> I reviewed above note and agree with findings and plans. I have also personally examined the patient with medicine team and went over assessment and plan with medical team including public health internship and resident physician. <Statement entered by Primo Randolph MD - 10/17/25 16:59> Patient was examined and case was reviewed with team including attending physician. Note reviewed, I agree with most of its contents and agree with the patient's care as documented by Dr. Park Patient seen today in the ICU found awake, alert at baseline mental status. Vital and labs reviewed. Blood cultures negative in 24 hours. Will await final culture results and transition to GT Antibiotics prioor to discharge. Case discussed with my attending Dr. Phoenix Randolph MD PGY-2 Disclaimer: Despite multiple revisions, due to the dictation software being used, the document bellow may not be free of grammatical errors including phonetic/typographic errors. However, this does not deter from our commitment to providing health care in the patient's best interest in mind. Documentation for date of: 10/17/25 Subjective Subjective Interval history: No overnight events reported. Patient was seen this morning at the bedside. Patient is stable on room air with no oxygen requirements at this time. Tube feeds were started and at 30 mL/hr. Patient continue Levofloxacin for acute hypoxic respiratory failure secondary to pneumonia. Sputum culture pending. Water enema has been ordered to assist with bowel movement due to the patient's abdominal discomfort. Patient's blood pressure has been soft. Patient takes midrodrine at home PRN, will resume. A bolus 500cc LR given for soft BP. Exam Vital Signs Temp Pulse Resp BP Pulse Ox O2 Del Method O2 Flow Rate 98.9 F 107 H 15 91/70 97 Room Air 6 10/17/25 04:00 10/17/25 08:01 10/17/25 08:01 10/17/25 08:01 10/17/25 08:01 10/16/25 03:50 10/15/25 23:11 Narrative Exam Physical Exam General: Sleeping comfortably. No acute distress. Nonverbal at baseline. HEENT: Normocephalic, atraumatic, mucous membranes dry, bilateral sclera anicteric, left eye blindness. Heart: Regular rate and rhythm, no murmurs. Non-labored respirations, symmetric chest rise, no use of accessory muscles. Lungs: Bilateral inspiratory crackles and rhonchi on auscultation. Abdomen: Soft, nondistended, slight tenderness on light palpation. No guarding or rebound tenderness. PEG tube in place. Neurologic: Alert and oriented x3, no gross neurological deficit, and patient able to move all 4 extremities. Extremities: No edema. Skin: No rash or ecchymoses. Objective Labs 10/18/25 04:54 10/18/25 04:54 Labs: Laboratory Results - last 24 hr 10/17/25 04:33 WBC 10.9 H RBC 4.37 L Hgb 12.6 L Hct 38.8 L MCV 89 MCH 28.8 MCHC 32.5 RDW Std Deviation 43.9 Plt Count 133 L Neut % (Auto) 67 Lymph % (Auto) 21 [place] % (Auto) 11 Eos % (Auto) 1 Baso % (Auto) 0 Neut # (Auto) 7.3 Lymph # (Auto) 2.3 [place] # (Auto) 1.3 H Eos # (Auto) 0.1 Baso # (Auto) 0.0 Immature Gran # (Auto) 0.05 H Absolute Nucleated RBC 0.00 Immature Gran % 1 H Nucleated RBC % 0 Sodium 142 Potassium 4.0 Chloride 107 Carbon Dioxide 25.4 Anion Gap 10 BUN 6 L Creatinine 0.5 L Estim Creat Clear Calc 145.3 eGFR > 60 BUN/Creatinine Ratio 12 Glucose 97 Calculated Osmolality 280 Calcium 9.2 Corrected Calcium 9.2 Phosphorus 3.8 Magnesium 2.0 Total Bilirubin 0.4 AST 16 ALT < 7 L Alkaline Phosphatase 71 Albumin 4.0 ABG Interpretation ABG results: 10/16/25 03:50 ABG pH 7.47 H ABG pCO2 38 ABG pO2 64 L ABG HCO3 27 H ABG O2 Saturation 93 ABG Base Excess 3 Quality Measures Quality Measures VTE prophylaxis and sepsis Current suspected stage: ruled out Possible source: pulmonary Blood cultures ordered: yes Antibiotic ordered: Yes Assessment & Plan Assessment Current Active Medications: Generic Name Dose Route Start Last Admin Trade Name Freq PRN Reason Stop Dose Admin Docusate Sodium 100 mg 10/16/25 09:00 10/17/25 09:44 Docusate Sod Liqd 100 Mg/10 Ml Udc GT 11/15/25 08:59 100 mg BID KIKI Administration Protocol Enoxaparin Sodium 40 mg 10/16/25 09:00 10/17/25 09:44 Enoxaparin Sod Inj 40 Mg/0.4 Ml Syringe SC 10/30/25 08:59 40 mg QDAY KIKI Administration Guaifenesin 100 mg 10/16/25 03:00 Guaifenesin Syrup 200 Mg/10 Ml Udc PO 11/15/25 02:59 QID PRN COUGH Protocol Acetaminophen 1,000 mg in 100 mls @ 250 mls/hr 10/16/25 14:46 10/16/25 22:48 Ofirmev Inj IV 10/17/25 14:45 250 mls/hr Q6HR PRN Administration BREAKTHROUGH PAIN (MODERATE) Levetiracetam 1,500 mg 10/16/25 09:00 10/17/25 09:44 Levetiracetam 250 Mg Tablet GT 11/15/25 08:59 1,500 mg BID KIKI Administration Levofloxacin 750 mg 10/16/25 09:00 10/17/25 09:44 Levofloxacin 250 Mg Tablet GT 10/20/25 09:00 750 mg QDAY KIKI Administration Metoclopramide HCl 5 mg 10/16/25 18:00 10/17/25 05:29 Metoclopramide Inj 5 Mg/Ml Vial 2 Ml IVP 11/15/25 17:59 5 mg Q6HR KIKI Administration Protocol Ondansetron HCl 4 mg 10/16/25 02:58 Ondansetron Inj 2 Mg/Ml Inj 2 Ml IVP 11/15/25 02:57 Q6H PRN NAUSEA OR VOMITING Protocol Pantoprazole Sodium 40 mg 10/16/25 03:25 10/17/25 09:44 Pantoprazole Inj 40 Mg Vial IVP 11/15/25 03:24 40 mg QDAY KIKI Administration Polyethylene Glycol 17 gm 10/16/25 09:00 10/17/25 09:52 Polyethylene Glycol 17 Gm Packet GT 11/15/25 08:59 17 gm QDAY KIKI Administration Valproic Acid 875 mg 10/16/25 09:00 10/17/25 09:43 Valproic Acid Syrup 250 Mg/5 Ml Udc PO 11/15/25 08:59 875 mg BID KIKI Administration Plan 40-year-old male with a history of cerebral palsy (nonverbal), developmental delay, seizures, hypertension, GERD, left eye blindness, and PEG tube dependence presents to the ED with SOB, cough, and subjective fevers for the past 2 days. Patient admitted for sepsis secondary to community-acquired pneumonia. #Acute hypoxic respiratory failure 2/2 #Community-acquired pneumonia #Sepsis ruled out - Presents with SOB, cough, and subjective fever for the past 2 days. - History of recurrent pneumonia, with the most recent hospitalization in 10/10, where he required admission for pneumonia and sputum culture grew Proteus mirabilis. - Uses oxygen at home as needed. - Febrile on admission, T 101.9, required 6 L of oxygen however now on room air. - Pro-Juwan negative - ABG showed pH 7.47, pO2 64. Plan * Levofloxacin 750 mg GT for 5 days (10/16-10/20/2025). * Sputum cultures pending. * Blood cultures pending. No growth after 24 hours. * Guaifenesin as needed. * Chest physiotherapy ordered. * Oxygen as needed. #Hypotension - Per father patient takes Midodrine 10mg at home when BP is low. Plan * Resumed home Midodrine 10mg PRN, give if SBP < 110. * LR 500cc bolus given. #Seizures #Cerebral palsy #Developmental delay - Patient is on Valproic acid and Keppra at home for seizures. Plan * Resumed Valproic acid and Keppra. * Seizure precautions. #Thrombocytopenia, stable - Platelets on admission 136 --> 129 --> 133. - No concerns regarding bleeding at this time. - Likely reactive 2/2 acute illness. Plan * Monitor platelets with a.m. labs. #Hypophosphatemia (resolved) * Monitor and replete as necessary. #GERD * Protonix daily. * Aspiration precaution. #Lactic acidosis (resolved) - Likely reactive - LA on admission 3.0 with repeat 1.5 Health Maintenance: Diet: G-tube feeds GI prophylaxis: Protonix daily DVT prophylaxis: Lovenox Antibiotics: Levofloxacin 750 mg GT x 5 days CODE STATUS: Full Disposition: Telemetry Patient plan of care was discussed with the senior resident, Dr. Ken Randolph, and attending physician, . Jr Park, PGY-1
[2025-10-17 13:27] LABS: Albumin/Globulin Ratio 1.1 (1.2-2.2); Globulin 3.7 gm/dL (2.3-3.5); Total Protein 7.7 gm/dL (5.7-8.2)
[2025-10-17] MEDS: RINGERS LACTATED 500 ML 500 ML 999 ML IV (17:07)
[2025-10-18] VITALS (12 sets, daily range): BP systolic 96–123; BP diastolic 69–85; PULSE 98–132; RESP 20–40; TEMP 36.1–37.2; O2SAT 93–99; BMI 24.1
[2025-10-18] MEDS: METOCLOPRAMIDE INJ 5 MG/ML VIAL 2 ML IVP ×5 (01:18→23:15)
[2025-10-18] MEDS: ALBUTEROL/IPRATROPIUM (Duoneb) RT SOL 3 ML NEBU INH ×4 (03:52→18:50)
[2025-10-18 06:31] LABS: Basophils # (Auto) 0.0 Thou/mm3 (0.0-0.2); Basophils % (Auto) 0 % (0-2.5); Eosinophils # (Auto) 0.1 Thou/mm3 (0.0-0.5); Eosinophils % (Auto) 1 % (0-10); Hematocrit 38.5 % (41.0-53.0); Hemoglobin 12.8 g/dL (13.5-16.0); Immature Granulocytes Auto 0.07 Thou/mm3 (0.00-0.00); Lymphocytes # (Auto) 2.8 Thou/mm3 (1.0-4.8); Lymphocytes % (Auto) 32 % (10-50); Mean Corpuscular HGB Conc 33.2 g/dl (31.0-37.0); Mean Corpuscular Hemoglobin 29.6 pg (25.0-35.0); Mean Corpuscular Volume 89 fL (80-100); Monocytes # (Auto) 1.0 Thou/mm3 (0.0-0.8); Monocytes % (Auto) 11 % (0-12); Neutrophils # (Auto) 4.7 Thou/mm3 (1.8-7.7); Neutrophils % (Auto) 55 % (37-80); Nucleated Red Blood Cell # 0.00 Thou/mm3 (0.00-0.00); Nucleated Red Blood Cell % 0 /100 WBC (0); Platelet Count 144 Thou/mm3 (140-440); RDW Standard Deviation 43.0 fL (35.1-43.9); Red Blood Count 4.33 Miln/mm3 (4.50-5.90); White Blood Count 8.6 Thou/mm3 (3.8-10.6)
[2025-10-18 07:09] LABS: Alanine Aminotransferase < 7 U/L (10-49); Albumin, Serum 4.2 gm/dL (3.5-5.0); Albumin/Globulin Ratio 1.1 (1.2-2.2); Alkaline Phosphatase 80 U/L (46-116); Anion Gap 12 (7-16); Aspartate Amino Transferase 22 U/L (0-34); BUN/Creatinine Ratio 15 Ratio (12-20); Bilirubin,Total 0.3 mg/dL (0.3-1.2); Blood Urea Nitrogen 9 mg/dL (9-23); Calcium 9.4 mg/dL (8.3-10.6); Calcium (Corrected) 9.4 mg/dL (8.5-10.1); Carbon Dioxide 24.0 mMol/L (20.0-31.0); Chloride 103 mMol/L (98-107); Creatinine (Component) 0.6 mg/dL (0.6-1.3); Estimated Creatinine Clearance 121.1 mL/min (>60); Globulin 3.9 gm/dL (2.3-3.5); Glucose 96 mg/dL (74-106); Magnesium 1.8 mg/dL (1.6-2.6); Osmolality,Calculated 276 (275-295); Phosphorous 2.9 mg/dL (2.4-5.1); Potassium 3.9 mMol/L (3.4-5.1); Sodium 139 mMol/L (136-145); Total Protein 8.1 gm/dL (5.7-8.2); eGFR > 60 See Note
[2025-10-18] MEDS: ENOXAPARIN SOD INJ 40 MG/0.4 ML SYRINGE SC (08:32)
[2025-10-18] MEDS: DOCUSATE SOD LIQD 100 MG/10 ML UDC GT ×2 (08:32→21:26)
[2025-10-18] MEDS: POLYETHYLENE GLYCOL 17 GM PACKET GT (08:32)
--- NOTE | 2025-10-18 09:40 | PC.SS ---
Addendum entered by Sadaf Quintero 10/18/25 11:04: SS was informed pt will need gurney transport home, pt possess coverage. Pt at this time not ready to DC due to O2 needs. SS will remain available for any additional needs or concerns Original Note: Rounding: Plan to DC home today, no needs identified
[2025-10-18] MEDS: VALPROIC ACID SYRUP 250 MG/5 ML UDC 875 MG PO ×2 (09:44→21:27)
[2025-10-18] MEDS: LEVOFLOXACIN 250 MG TABLET 750 MG GT (09:45)
[2025-10-18] MEDS: guaiFENesin SYRUP 200 MG/10 ML UDC 100 MG PO ×2 (09:53→16:39)
[2025-10-18] MEDS: METOPROLOL SUCCINATE XL 25 MG TABCR 50 MG PO (11:13)
--- NOTE | 2025-10-18 13:23 | ESPR_ITS ---
<Statement entered by Shannen Garibay MD - 10/30/25 09:17> I reviewed above note and agree with findings and plans. I have also personally examined the patient with medicine team and went over assessment and plan with medical team including programming internship and resident physician. <Statement entered by Breann Lombardi MD - 10/18/25 15:25> In summary, 4-year-old male with cerebral palsy and seizure disorder, admitted for acute hypoxemic respiratory failure in settings of pseudomonal pneumonia. He has been on LEVAQUIN, responding well to treatment with resolved leukocytosis and no recurrent fever. Although he appears dyspneic today, and has been on 3 L NS, satting well otherwise. Also remains tachycardic with HR 128, and we resumed home METOPROLOL. Will continue to monitor for another day, hopefully discharge tomorrow if tachycardia resolves. I?ve reviewed the note and agree with this assessment and plan, with the exceptions outlined above. I personally went over the labs, imaging, home medications, and prior records, and examined the patient. The case was also reviewed with the attending physician. Please note: this document was transcribed using voice recognition technology; minor inaccuracies may be present. Breann Lombardi DO PGY II Documentation for date of: 10/18/25 Subjective Subjective Interval history: Patient was seen this morning at the bedside. Overnight, the patient received a breathing treatment due to desaturation into the 80s, which improved with the use of an oxymask. Continue Guaifenesin and Duoneb as needed. Patient has significant secretions, likely contributing to tachypnea. Oronasopharyngeal suctioning has been ordered. Patient will continue Levofloxacin for acute hypoxic respiratory failure secondary to pneumonia. Sputum culture grew Pseudomonas, which is sensitive to Levofloxacin. Leukocytosis has resolved. Home metoprolol was resumed for tachycardia. Per nursing staff last bowel movement yesterday. Exam Vital Signs Temp Pulse Resp BP Pulse Ox O2 Del Method O2 Flow Rate 97.6 F 128 H 31 H 123/76 95 Nasal Cannula 2 10/18/25 12:00 10/18/25 12:00 10/18/25 12:00 10/18/25 12:00 10/18/25 12:00 10/18/25 12:00 10/18/25 12:00 Narrative Exam Physical Exam General: Sleeping comfortably. No acute distress. Nonverbal at baseline. HEENT: Normocephalic, atraumatic, mucous membranes dry, bilateral sclera anicteric, left eye blindness. Heart: Regular rate and rhythm, no murmurs. Non-labored respirations, symmetric chest rise, no use of accessory muscles. Lungs: Bilateral inspiratory crackles and rhonchi on auscultation. Abdomen: Soft, nondistended, slight tenderness on light palpation. No guarding or rebound tenderness. PEG tube in place. Neurologic: Alert and oriented x3, no gross neurological deficit, and patient able to move all 4 extremities. Extremities: No edema. Skin: No rash or ecchymoses. Objective Labs 10/21/25 05:20 10/21/25 05:20 Labs: Laboratory Results - last 24 hr 10/17/25 10/18/25 04:33 04:54 WBC 8.6 RBC 4.33 L Hgb 12.8 L Hct 38.5 L MCV 89 MCH 29.6 MCHC 33.2 RDW Std Deviation 43.0 Plt Count 144 Neut % (Auto) 55 Lymph % (Auto) 32 [place] % (Auto) 11 Eos % (Auto) 1 Baso % (Auto) 0 Neut # (Auto) 4.7 Lymph # (Auto) 2.8 [place] # (Auto) 1.0 H Eos # (Auto) 0.1 Baso # (Auto) 0.0 Immature Gran # (Auto) 0.07 H Absolute Nucleated RBC 0.00 Immature Gran % 1 H Nucleated RBC % 0 Sodium 139 Potassium 3.9 Chloride 103 Carbon Dioxide 24.0 Anion Gap 12 BUN 9 Creatinine 0.6 Estim Creat Clear Calc 121.1 eGFR > 60 BUN/Creatinine Ratio 15 Glucose 96 Calculated Osmolality 276 Calcium 9.4 Corrected Calcium 9.4 Phosphorus 2.9 Magnesium 1.8 Total Bilirubin 0.3 AST 22 ALT < 7 L Alkaline Phosphatase 80 Total Protein 7.7 8.1 Albumin 4.2 Globulin 3.7 H 3.9 H Albumin/Globulin Ratio 1.1 L 1.1 L ABG Interpretation ABG results: 10/16/25 03:50 ABG pH 7.47 H ABG pCO2 38 ABG pO2 64 L ABG HCO3 27 H ABG O2 Saturation 93 ABG Base Excess 3 Quality Measures Quality Measures VTE prophylaxis and sepsis Current suspected stage: ruled out Possible source: pulmonary Blood cultures ordered: yes Antibiotic ordered: Yes Assessment & Plan Assessment Current Active Medications: Generic Name Dose Route Start Last Admin Trade Name Freq PRN Reason Stop Dose Admin Albuterol/Ipratropium 3 ml 10/18/25 13:00 Albuterol/Ipratropium (Duoneb) Rt Lisset 3 Ml Nebu INH 11/17/25 12:59 Q6HRRT KIIK Docusate Sodium 100 mg 10/16/25 09:00 10/18/25 08:32 Docusate Sod Liqd 100 Mg/10 Ml Udc GT 11/15/25 08:59 100 mg BID KIKI Administration Protocol Enoxaparin Sodium 40 mg 10/16/25 09:00 10/18/25 08:32 Enoxaparin Sod Inj 40 Mg/0.4 Ml Syringe SC 10/30/25 08:59 40 mg QDAY KIKI Administration Guaifenesin 100 mg 10/16/25 03:00 10/18/25 09:53 Guaifenesin Syrup 200 Mg/10 Ml Udc PO 11/15/25 02:59 100 mg QID PRN Administration COUGH Protocol Levetiracetam 1,500 mg 10/16/25 09:00 10/18/25 08:32 Levetiracetam 250 Mg Tablet GT 11/15/25 08:59 1,500 mg BID KIKI Administration Levofloxacin 750 mg 10/16/25 09:00 10/18/25 09:45 Levofloxacin 250 Mg Tablet GT 10/20/25 09:00 750 mg QDAY KIKI Administration Metoclopramide HCl 5 mg 10/16/25 18:00 10/18/25 11:12 Metoclopramide Inj 5 Mg/Ml Vial 2 Ml IVP 11/15/25 17:59 5 mg Q6HR KIKI Administration Protocol Metoprolol Succinate 50 mg 10/18/25 10:30 10/18/25 11:13 Metoprolol Succinate Xl 25 Mg Tabcr PO 11/17/25 10:29 50 mg QDAY KIKI Administration Midodrine 10 mg 10/17/25 16:37 Midodrine 5 Mg Tablet GT 11/16/25 20:59 HS PRN Give if SBP < 110 Ondansetron HCl 4 mg 10/16/25 02:58 Ondansetron Inj 2 Mg/Ml Inj 2 Ml IVP 11/15/25 02:57 Q6H PRN NAUSEA OR VOMITING Protocol Pantoprazole Sodium 40 mg 10/16/25 03:25 10/18/25 08:33 Pantoprazole Inj 40 Mg Vial IVP 11/15/25 03:24 40 mg QDAY KIKI Administration Polyethylene Glycol 17 gm 10/16/25 09:00 10/18/25 08:32 Polyethylene Glycol 17 Gm Packet GT 11/15/25 08:59 17 gm QDAY KIKI Administration Valproic Acid 875 mg 10/16/25 09:00 10/18/25 09:44 Valproic Acid Syrup 250 Mg/5 Ml Udc PO 11/15/25 08:59 875 mg BID KIKI Administration Plan 40-year-old male with a history of cerebral palsy (nonverbal), developmental delay, seizures, hypertension, GERD, left eye blindness, and PEG tube dependence presents to the ED with SOB, cough, and fever, admitted for acute hypoxemic respiratory failure in setting of Pseudomonal pneumonia. #Acute hypoxic respiratory failure / #Pseudomonal pneumonia #Sepsis ruled out - Presents with SOB, cough, and subjective fever for the past 2 days. - History of recurrent pneumonia, with the most recent hospitalization in 10/10, where he required admission for pneumonia and sputum culture grew Proteus mirabilis. - Uses oxygen at home as needed. - Febrile on admission, T 101.9, required 6 L of oxygen however now on room air. - Pro-Juwan negative. - ABG showed pH 7.47, pO2 64. - Sputum culture 10/16 showed Pseudomonas. - Blood culture 10/16 was negative. Plan * Levofloxacin 750 mg GT for 5 days (10/16-10/20/2025). * Guaifenesin and Duoneb as needed. * Chest physiotherapy. * Oxygen as needed. * Oronasopharyngeal suction Q6H. #Sinus tachycardia - Likely secondary to pain vs excess airway secretions and an inability to clear secretions vs rebound tachycardia. - Patient takes metoprolol 50 mg QD. Plan: * Resume home metoprolol 50 mg QD. * Oronasopharyngeal suction Q6H to help clear secretions. #Seizures #Cerebral palsy #Developmental delay - Patient is on Valproic acid and Keppra at home for seizures. Plan * Resumed Valproic acid and Keppra. * Seizure precautions. #GERD * Protonix daily. * Metoclopramide 5mg IV Q6HR. * Aspiration precaution. #Hypotension (resolved) - Per father patient takes Midodrine 10mg at home when BP is low. Plan * Resumed home Midodrine 10mg PRN, give if SBP < 110. #Thrombocytopenia (resolved) - Platelets on admission 136 --> 129 --> 133. - No concerns regarding bleeding at this time. - Likely reactive 2/2 acute illness. Plan * Monitor platelets with a.m. labs. #Hypophosphatemia (resolved) * Monitor and replete as necessary. #Lactic acidosis (resolved) - Likely reactive - LA on admission 3.0 with repeat 1.5 Health Maintenance: Diet: G-tube feeds GI prophylaxis: Protonix daily DVT prophylaxis: Lovenox Antibiotics: Levofloxacin 750 mg GT x 5 days CODE STATUS: Full Disposition: Telemetry Patient plan of care was discussed with the senior resident, Dr. Lombardi, and attending physician, . Jr Park DO, PGY-1
[2025-10-19] VITALS (19 sets, daily range): BP systolic 92–120; BP diastolic 58–72; PULSE 78–112; RESP 11–93; TEMP 36.1–36.6; O2SAT 91–99; BMI 25.6
[2025-10-19] MEDS: MIDODRINE 5 MG TABLET 10 MG GT
[2025-10-19] MEDS: guaiFENesin SYRUP 200 MG/10 ML UDC 100 MG PO (00:01)
[2025-10-19] MEDS: ALBUTEROL/IPRATROPIUM (Duoneb) RT SOL 3 ML NEBU INH ×5 (00:09→22:47)
[2025-10-19] MEDS: METOCLOPRAMIDE INJ 5 MG/ML VIAL 2 ML IVP ×4 (05:15→23:13)
[2025-10-19 06:00] LABS: Basophils # (Auto) 0.1 Thou/mm3 (0.0-0.2); Basophils % (Auto) 1 % (0-2.5); Eosinophils # (Auto) 0.0 Thou/mm3 (0.0-0.5); Eosinophils % (Auto) 1 % (0-10); Hematocrit 37.8 % (41.0-53.0); Hemoglobin 12.3 g/dL (13.5-16.0); Immature Granulocytes Auto 0.15 Thou/mm3 (0.00-0.00); Lymphocytes # (Auto) 2.7 Thou/mm3 (1.0-4.8); Lymphocytes % (Auto) 30 % (10-50); Mean Corpuscular HGB Conc 32.5 g/dl (31.0-37.0); Mean Corpuscular Hemoglobin 29.2 pg (25.0-35.0); Mean Corpuscular Volume 90 fL (80-100); Monocytes # (Auto) 0.8 Thou/mm3 (0.0-0.8); Monocytes % (Auto) 9 % (0-12); Neutrophils # (Auto) 5.2 Thou/mm3 (1.8-7.7); Neutrophils % (Auto) 58 % (37-80); Nucleated Red Blood Cell # 0.00 Thou/mm3 (0.00-0.00); Nucleated Red Blood Cell % 0 /100 WBC (0); Platelet Count 163 Thou/mm3 (140-440); RDW Standard Deviation 42.5 fL (35.1-43.9); Red Blood Count 4.21 Miln/mm3 (4.50-5.90); White Blood Count 8.8 Thou/mm3 (3.8-10.6)
[2025-10-19 06:27] LABS: Alanine Aminotransferase < 7 U/L (10-49); Albumin, Serum 4.3 gm/dL (3.5-5.0); Albumin/Globulin Ratio 1.1 (1.2-2.2); Alkaline Phosphatase 77 U/L (46-116); Anion Gap 10 (7-16); Aspartate Amino Transferase 23 U/L (0-34); BUN/Creatinine Ratio 22 Ratio (12-20); Bilirubin,Total 0.4 mg/dL (0.3-1.2); Blood Urea Nitrogen 11 mg/dL (9-23); Calcium 9.2 mg/dL (8.3-10.6); Calcium (Corrected) 9.2 mg/dL (8.5-10.1); Carbon Dioxide 26.0 mMol/L (20.0-31.0); Chloride 102 mMol/L (98-107); Creatinine (Component) 0.5 mg/dL (0.6-1.3); Estimated Creatinine Clearance 157.4 mL/min (>60); Globulin 3.8 gm/dL (2.3-3.5); Glucose 87 mg/dL (74-106); Magnesium 2.1 mg/dL (1.6-2.6); Osmolality,Calculated 274 (275-295); Phosphorous 4.5 mg/dL (2.4-5.1); Potassium 4.0 mMol/L (3.4-5.1); Sodium 138 mMol/L (136-145); Total Protein 8.1 gm/dL (5.7-8.2); eGFR > 60 See Note
[2025-10-19] MEDS: VALPROIC ACID SYRUP 250 MG/5 ML UDC 875 MG PO ×2 (08:42→20:06)
[2025-10-19] MEDS: DOCUSATE SOD LIQD 100 MG/10 ML UDC GT ×2 (08:44→20:05)
[2025-10-19] MEDS: POLYETHYLENE GLYCOL 17 GM PACKET GT (08:45)
[2025-10-19] MEDS: METOPROLOL SUCCINATE XL 25 MG TABCR 50 MG PO (08:46)
[2025-10-19] MEDS: LEVOFLOXACIN 250 MG TABLET 750 MG GT (08:47)
[2025-10-19] MEDS: ENOXAPARIN SOD INJ 40 MG/0.4 ML SYRINGE SC (08:50)
--- NOTE | 2025-10-19 10:50 | XR_ITS ---
Examination: CT chest with intravenous contrast 2-D sagittal and coronal reconstructions Exam date and time: October 19, 2025, 1809 hours, comparison September 05, 2024 INDICATIONS: Sepsis alert today, tachypnea CTDI:vol (mGy) 22.5 DLP: (mGycm) 761 Technique: Multiple axial sections of the thorax have been obtained. Sections have been obtained, 3 mm slice thickness. Mediastinal and lung density settings have been obtained. Intravenous contrast administered, 60 cc Isovue 370. 2-D sagittal, coronal images obtained. Low dose protocols were performed. One or more of the following dose reduction techniques were used; automated exposure control, adjustment of the mA and/or KV according to patient size, use of iterative reconstruction technique. Findings: No thoracic aortic aneurysmal dilatation No pulmonary artery filling defects on this CTA study Moderate vascular congestion Pneumonia left base Large retrocardiac gastric hernia Small liver cysts No pancreatic or adrenal mass Kidneys partially visualized no hydronephrosis IMPRESSION: No thoracic aortic aneurysm dilatation Negative for pulmonary artery emboli No mediastinal lymphadenopathy Moderate vascular congestion Left base pneumonia
--- NOTE | 2025-10-19 16:40 | ESPR_ITS ---
<Statement entered by Shannen Garibay MD - 10/30/25 09:18> I reviewed above note and agree with findings and plans. I have also personally examined the patient with medicine team and went over assessment and plan with medical team including digital marketing intern and resident physician. <Statement entered by Breann Lombardi MD - 10/19/25 20:32> In summary, 4-year-old male with cerebral palsy and seizure disorder, admitted for acute hypoxemic respiratory failure in settings of pseudomonal pneumonia. He has been on LEVAQUIN, responding well to treatment with resolved leukocytosis and no recurrent fever. Although he appears dyspneic today, and has been on 3 L NS, satting well otherwise. Also remains tachycardic with HR 128, and we resumed home METOPROLOL. Today, he continued to make improvement, however remains tachypneic although satting well on normal oxygen through nasal cannula. CT chest today revealed moderate vascular injection and left base pneumonia, no worsening of findings. However, given sustained tachypnea and increased work of breathing, will keep the patient for another day and monitor closely. I?ve reviewed the note and agree with this assessment and plan, with the exceptions outlined above. I personally went over the labs, imaging, home medications, and prior records, and examined the patient. The case was also reviewed with the attending physician. Please note: this document was transcribed using voice recognition technology; minor inaccuracies may be present. Breann Lombardi DO PGY II Documentation for date of: 10/19/25 Subjective Subjective Interval history: No overnight events were reported. Patient was seen this morning at the bedside. Home metoprolol was resumed yesterday, and tachycardia has improved today. The patient remains tachypneic but has shown improvement compared to yesterday. Patient is satting 95% on 2L NC. A CT chest is pending. If the CT chest is negative, tachypnea likely secondary to copious secretions, and a scopolamine patch will be considered next. Continued oronasopharyngeal suctioning and chest physiotherapy are recommended. Exam Vital Signs Temp Pulse Resp BP Pulse Ox O2 Del Method O2 Flow Rate 97.0 F 104 H 22 H 102/69 98 Nasal Cannula 2 10/19/25 16:00 10/19/25 16:00 10/19/25 16:00 10/19/25 16:00 10/19/25 16:00 10/19/25 16:00 10/19/25 16:00 Narrative Exam Physical Exam General: Sleeping comfortably. No acute distress. Nonverbal at baseline. HEENT: Normocephalic, atraumatic, mucous membranes dry, bilateral sclera anicteric, left eye blindness. Heart: Regular rate and rhythm, no murmurs. Non-labored respirations, symmetric chest rise, no use of accessory muscles. Lungs: Bilateral inspiratory crackles and rhonchi on auscultation. Abdomen: Soft, nondistended, slight tenderness on light palpation. No guarding or rebound tenderness. PEG tube in place. Neurologic: Alert and oriented x3, no gross neurological deficit, and patient able to move all 4 extremities. Extremities: No edema. Skin: No rash or ecchymoses. Objective Labs 10/20/25 04:40 10/20/25 04:40 Labs: Laboratory Results - last 24 hr 10/19/25 04:47 WBC 8.8 RBC 4.21 L Hgb 12.3 L Hct 37.8 L MCV 90 MCH 29.2 MCHC 32.5 RDW Std Deviation 42.5 Plt Count 163 Neut % (Auto) 58 Lymph % (Auto) 30 [place] % (Auto) 9 Eos % (Auto) 1 Baso % (Auto) 1 Neut # (Auto) 5.2 Lymph # (Auto) 2.7 [place] # (Auto) 0.8 Eos # (Auto) 0.0 Baso # (Auto) 0.1 Immature Gran # (Auto) 0.15 H Absolute Nucleated RBC 0.00 Immature Gran % 2 H Nucleated RBC % 0 Sodium 138 Potassium 4.0 Chloride 102 Carbon Dioxide 26.0 Anion Gap 10 BUN 11 Creatinine 0.5 L Estim Creat Clear Calc 157.4 eGFR > 60 BUN/Creatinine Ratio 22 H Glucose 87 Calculated Osmolality 274 L Calcium 9.2 Corrected Calcium 9.2 Phosphorus 4.5 Magnesium 2.1 Total Bilirubin 0.4 AST 23 ALT < 7 L Alkaline Phosphatase 77 Total Protein 8.1 Albumin 4.3 Globulin 3.8 H Albumin/Globulin Ratio 1.1 L ABG Interpretation ABG results: 10/16/25 03:50 ABG pH 7.47 H ABG pCO2 38 ABG pO2 64 L ABG HCO3 27 H ABG O2 Saturation 93 ABG Base Excess 3 Quality Measures Quality Measures VTE prophylaxis and sepsis Current suspected stage: ruled out Possible source: pulmonary Blood cultures ordered: yes Antibiotic ordered: Yes Assessment & Plan Assessment Current Active Medications: Generic Name Dose Route Start Last Admin Trade Name Freq PRN Reason Stop Dose Admin Albuterol/Ipratropium 3 ml 10/19/25 09:45 10/19/25 13:35 Albuterol/Ipratropium (Duoneb) Rt Lisset 3 Ml Nebu INH 11/18/25 09:44 Not Given Q4HRRT KIKI Docusate Sodium 100 mg 10/16/25 09:00 10/19/25 08:44 Docusate Sod Liqd 100 Mg/10 Ml Udc GT 11/15/25 08:59 100 mg BID KIKI Administration Protocol Enoxaparin Sodium 40 mg 10/16/25 09:00 10/19/25 08:50 Enoxaparin Sod Inj 40 Mg/0.4 Ml Syringe SC 10/30/25 08:59 40 mg QDAY KIKI Administration Guaifenesin 100 mg 10/16/25 03:00 10/19/25 00:01 Guaifenesin Syrup 200 Mg/10 Ml Udc PO 11/15/25 02:59 100 mg QID PRN Administration COUGH Protocol Lansoprazole 30 mg 10/20/25 09:00 Lansoprazole 30 Mg Tab. GT 11/19/25 08:59 QDAY KIKI Protocol Levetiracetam 1,500 mg 10/16/25 09:00 10/19/25 08:48 Levetiracetam 250 Mg Tablet GT 11/15/25 08:59 1,500 mg BID KIKI Administration Levofloxacin 750 mg 10/16/25 09:00 10/19/25 08:47 Levofloxacin 250 Mg Tablet GT 10/20/25 09:00 750 mg QDAY KIKI Administration Metoclopramide HCl 5 mg 10/16/25 18:00 10/19/25 11:20 Metoclopramide Inj 5 Mg/Ml Vial 2 Ml IVP 11/15/25 17:59 5 mg Q6HR KIKI Administration Protocol Metoprolol Succinate 50 mg 10/18/25 10:30 10/19/25 08:46 Metoprolol Succinate Xl 25 Mg Tabcr PO 11/17/25 10:29 50 mg QDAY KIKI Administration Midodrine 10 mg 10/17/25 16:37 10/19/25 00:00 Midodrine 5 Mg Tablet GT 11/16/25 20:59 10 mg HS PRN Administration Give if SBP < 110 Ondansetron HCl 4 mg 10/19/25 09:25 Ondansetron Odt 4 Mg Tabrap GT 11/18/25 09:24 Q6H PRN NAUSEA OR VOMITING Protocol Polyethylene Glycol 17 gm 10/16/25 09:00 10/19/25 08:45 Polyethylene Glycol 17 Gm Packet GT 11/15/25 08:59 17 gm QDAY KIKI Administration Valproic Acid 875 mg 10/16/25 09:00 10/19/25 08:42 Valproic Acid Syrup 250 Mg/5 Ml Udc PO 11/15/25 08:59 875 mg BID KIKI Administration Plan 40-year-old male with a history of cerebral palsy (nonverbal), developmental delay, seizures, hypertension, GERD, left eye blindness, and PEG tube dependence presents to the ED with SOB, cough, and fever, admitted for acute hypoxemic respiratory failure in setting of Pseudomonal pneumonia. #Acute hypoxic respiratory failure 2/2 #Pseudomonal pneumonia #Sepsis ruled out - Presents with SOB, cough, and subjective fever for the past 2 days. - History of recurrent pneumonia, with the most recent hospitalization in 10/10, where he required admission for pneumonia and sputum culture grew Proteus mirabilis. - Uses oxygen at home as needed. - Febrile on admission, T 101.9, required 6 L of oxygen however now on room air. - Pro-Juwan negative. - ABG showed pH 7.47, pO2 64. - Sputum culture 10/16 showed Pseudomonas. - Blood culture 10/16 was negative. Plan * Levofloxacin 750 mg GT for 5 days (10/16-10/20/2025). * Guaifenesin and Duoneb as needed. * Chest physiotherapy. * Oxygen as needed. * Oronasopharyngeal suction Q6H. * CT chest pending. #Sinus tachycardia - Likely secondary to pain vs excess airway secretions and an inability to clear secretions vs rebound tachycardia. - Patient takes metoprolol 50 mg QD. Plan: * Resume home metoprolol 50 mg QD. * Oronasopharyngeal suction Q6H to help clear secretions. #Seizures #Cerebral palsy #Developmental delay - Patient is on Valproic acid and Keppra at home for seizures. Plan * Resumed Valproic acid and Keppra. * Seizure precautions. #GERD * Protonix daily. * Metoclopramide 5mg IV Q6HR. * Aspiration precaution. #Hypotension (resolved) - Per father patient takes Midodrine 10mg at home when BP is low. Plan * Resumed home Midodrine 10mg PRN, give if SBP < 110. #Thrombocytopenia (resolved) - Platelets on admission 136 --> 129 --> 133. - No concerns regarding bleeding at this time. - Likely reactive 2/2 acute illness. Plan * Monitor platelets with a.m. labs. #Hypophosphatemia (resolved) * Monitor and replete as necessary. #Lactic acidosis (resolved) - Likely reactive - LA on admission 3.0 with repeat 1.5 Health Maintenance: Diet: G-tube feeds GI prophylaxis: Protonix daily DVT prophylaxis: Lovenox Antibiotics: Levofloxacin 750 mg GT x 5 days CODE STATUS: Full Disposition: Telemetry Patient plan of care was discussed with the senior resident, Dr. Lombardi, and attending physician, . Jr Park, PGY-1
[2025-10-20] VITALS (13 sets, daily range): BP systolic 103–120; BP diastolic 68–79; PULSE 90–121; RESP 16–36; TEMP 36.1–36.8; O2SAT 94–99; BMI 25.4
[2025-10-20] MEDS: ALBUTEROL/IPRATROPIUM (Duoneb) RT SOL 3 ML NEBU INH ×6 (03:21→22:46)
[2025-10-20] MEDS: METOCLOPRAMIDE INJ 5 MG/ML VIAL 2 ML IVP ×3 (05:09→23:31)
[2025-10-20 05:46] LABS: Basophils # (Auto) 0.1 Thou/mm3 (0.0-0.2); Basophils % (Auto) 1 % (0-2.5); Eosinophils # (Auto) 0.0 Thou/mm3 (0.0-0.5); Eosinophils % (Auto) 0 % (0-10); Hematocrit 36.3 % (41.0-53.0); Hemoglobin 12.0 g/dL (13.5-16.0); Immature Granulocytes Auto 0.28 Thou/mm3 (0.00-0.00); Lymphocytes # (Auto) 2.3 Thou/mm3 (1.0-4.8); Lymphocytes % (Auto) 28 % (10-50); Mean Corpuscular HGB Conc 33.1 g/dl (31.0-37.0); Mean Corpuscular Hemoglobin 29.6 pg (25.0-35.0); Mean Corpuscular Volume 90 fL (80-100); Monocytes # (Auto) 0.9 Thou/mm3 (0.0-0.8); Monocytes % (Auto) 11 % (0-12); Neutrophils # (Auto) 4.6 Thou/mm3 (1.8-7.7); Neutrophils % (Auto) 57 % (37-80); Nucleated Red Blood Cell # 0.00 Thou/mm3 (0.00-0.00); Nucleated Red Blood Cell % 0 /100 WBC (0); Platelet Count 203 Thou/mm3 (140-440); RDW Standard Deviation 41.8 fL (35.1-43.9); Red Blood Count 4.05 Miln/mm3 (4.50-5.90); White Blood Count 8.2 Thou/mm3 (3.8-10.6)
[2025-10-20 06:24] LABS: Alanine Aminotransferase < 7 U/L (10-49); Albumin, Serum 4.2 gm/dL (3.5-5.0); Albumin/Globulin Ratio 1.2 (1.2-2.2); Alkaline Phosphatase 80 U/L (46-116); Anion Gap 10 (7-16); Aspartate Amino Transferase 13 U/L (0-34); BUN/Creatinine Ratio 26 Ratio (12-20); Bilirubin,Total 0.3 mg/dL (0.3-1.2); Blood Urea Nitrogen 13 mg/dL (9-23); Calcium 9.3 mg/dL (8.3-10.6); Calcium (Corrected) 9.3 mg/dL (8.5-10.1); Carbon Dioxide 28.0 mMol/L (20.0-31.0); Chloride 102 mMol/L (98-107); Creatinine (Component) 0.5 mg/dL (0.6-1.3); Estimated Creatinine Clearance 156.9 mL/min (>60); Globulin 3.6 gm/dL (2.3-3.5); Glucose 106 mg/dL (74-106); Magnesium 2.0 mg/dL (1.6-2.6); Osmolality,Calculated 279 (275-295); Phosphorous 2.9 mg/dL (2.4-5.1); Potassium 3.7 mMol/L (3.4-5.1); Sodium 140 mMol/L (136-145); Total Protein 7.8 gm/dL (5.7-8.2); eGFR > 60 See Note
[2025-10-20] MEDS: VALPROIC ACID SYRUP 250 MG/5 ML UDC 875 MG PO ×2 (08:37→21:27)
[2025-10-20] MEDS: ENOXAPARIN SOD INJ 40 MG/0.4 ML SYRINGE SC (08:38)
[2025-10-20] MEDS: DOCUSATE SOD LIQD 100 MG/10 ML UDC GT ×2 (08:38→21:27)
[2025-10-20] MEDS: LANSOPRAZOLE 30 MG TAB.RAP.DR GT (08:38)
[2025-10-20] MEDS: POLYETHYLENE GLYCOL 17 GM PACKET GT (08:38)
[2025-10-20] MEDS: METOPROLOL SUCCINATE XL 25 MG TABCR 50 MG PO (08:39)
[2025-10-20] MEDS: LEVOFLOXACIN 250 MG TABLET 750 MG GT (08:39)
--- NOTE | 2025-10-20 11:25 | PC.NURSE ---
Dr. Puente put in DC orders. Dr. Roca wants me to give patient an enema and lactoloe. Discharge will not happen in two hours.
--- NOTE | 2025-10-20 11:34 | XR_ITS ---
Examination: CTA chest with intravenous contrast 2-D reconstructions 3-D reconstructions, vascular Date and time of exam: October 20, 20252010 hours INDICATIONS: Chest pain shortness of breath today CTDI: vol (mGy) 47.38 DLP: (mGycm) 594 Technique: Multiple axial sections of the thorax have been obtained. 3 mm slice thickness, from below the hemidiaphragms to above the apices of the lungs. Mediastinal and lung density settings have been obtained. 2-D sagittal and coronal reconstructions. 3-D angiographic renderings, 3-D volume renderings, 3D post processing, vascular maximum intensity projections obtained. Contrast administered is 100 cc Isovue-370. Low dose protocols were performed. One or more of the following dose reduction techniques were used; automated exposure control, adjustment of the mA and/or KV according to patient size, use of iterative reconstruction technique. Findings: No thoracic aortic aneurysm dilatation or dissection No pulmonary artery emboli Diffuse bilateral lung opacity most consistent with pneumonia Mild to moderate elevation right hemidiaphragm Small liver cysts Spleen not enlarged Large retrocardiac gastric hernia Hepatomegaly 18 cm Moderate osteopenia IMPRESSION: Negative for pulmonary artery emboli Bilateral pneumonia most prominent at the left lung base
--- NOTE | 2025-10-20 11:40 | PC.SS ---
SS was informed by RNN[facility] pt will not DC today due to high O2 needs at 7L. When pt is ready pt will require transportation through [employer] going home.
[2025-10-20] MEDS: LACTULOSE SYRUP 20 GM/30 ML UDC 60 GM PO (11:47)
--- NOTE | 2025-10-20 15:10 | ESPR_ITS ---
<Statement entered by Shannen Garibay MD - 10/30/25 09:20> I reviewed above note and agree with findings and plans. I have also personally examined the patient with medicine team and went over assessment and plan with medical team including international trade specialist and resident physician. <Statement entered by Breann Lombardi MD - 10/21/25 09:55> In summary: 40-year-old male with cerebral palsy and seizure disorder, admitted for acute hypoxemic respiratory failure in settings of pseudomonal pneumonia. He has been on LEVAQUIN, responding well to treatment with resolved leukocytosis and no recurrent fever. Although he appears dyspneic today, and has been on 3 L NS, satting well otherwise. Also remains tachycardic with HR 128, and we resumed home METOPROLOL. Today, he continued to make improvement, however remains tachypneic although satting well on normal oxygen through nasal cannula. CT chest today revealed moderate vascular injection and left base pneumonia, no worsening of findings. Remains tachypnic despite medical management. CTA chest was negative for PE, PNA appears improving, with evidence of vascular congestion. Will continue close monitering for another day. Will consider LASIX x1 if symptoms do not improve or worsen. I?ve reviewed the note and agree with this assessment and plan, with the exceptions outlined above. I personally went over the labs, imaging, home medications, and prior records, and examined the patient. The case was also reviewed with the attending physician. Please note: this document was transcribed using voice recognition technology; minor inaccuracies may be present. Breann Lombardi DO PGY II Documentation for date of: 10/20/25 Subjective Subjective Interval history: No overnight events were reported. Patient was seen this morning at the bedside. Tachycardia has resolved with restarting home metoprolol. Patient's respiratory was 18 and patient was on 2L NC. CT chest showed moderate vascular congestion and left base pneumonia. CTA was ordered to rule out pulmonary embolism because later in the day patient was on 8L NC with RR of 30s. Lactulose 60 gram and water enema was given for constipation since large stool burden showed on CT. Levofloxacin will be continued for a total of 14 day course. Exam Vital Signs Temp Pulse Resp BP Pulse Ox O2 Del Method O2 Flow Rate 97.0 F 110 H 21 H 110/68 98 Nasal Cannula 2 10/20/25 12:00 10/20/25 14:12 10/20/25 14:12 10/20/25 12:00 10/20/25 14:12 10/20/25 12:00 10/20/25 14:12 Narrative Exam Physical Exam General: Sleeping comfortably. No acute distress. Nonverbal at baseline. HEENT: Normocephalic, atraumatic, mucous membranes dry, bilateral sclera anicteric, left eye blindness. Heart: Regular rate and rhythm, no murmurs. Non-labored respirations, symmetric chest rise, no use of accessory muscles. Lungs: Bilateral inspiratory crackles and rhonchi on auscultation. Abdomen: Soft, nondistended, slight tenderness on light palpation. No guarding or rebound tenderness. PEG tube in place. Neurologic: Alert and oriented x3, no gross neurological deficit, and patient able to move all 4 extremities. Extremities: No edema. Skin: No rash or ecchymoses. Objective Labs 10/21/25 05:20 10/21/25 05:20 Labs: Laboratory Results - last 24 hr 10/20/25 04:40 WBC 8.2 RBC 4.05 L Hgb 12.0 L Hct 36.3 L MCV 90 MCH 29.6 MCHC 33.1 RDW Std Deviation 41.8 Plt Count 203 D Neut % (Auto) 57 Lymph % (Auto) 28 [place] % (Auto) 11 Eos % (Auto) 0 Baso % (Auto) 1 Neut # (Auto) 4.6 Lymph # (Auto) 2.3 [place] # (Auto) 0.9 H Eos # (Auto) 0.0 Baso # (Auto) 0.1 Immature Gran # (Auto) 0.28 H Absolute Nucleated RBC 0.00 Immature Gran % 3 H Nucleated RBC % 0 Sodium 140 Potassium 3.7 Chloride 102 Carbon Dioxide 28.0 Anion Gap 10 BUN 13 Creatinine 0.5 L Estim Creat Clear Calc 156.9 eGFR > 60 BUN/Creatinine Ratio 26 H Glucose 106 Calculated Osmolality 279 Calcium 9.3 Corrected Calcium 9.3 Phosphorus 2.9 Magnesium 2.0 Total Bilirubin 0.3 AST 13 ALT < 7 L Alkaline Phosphatase 80 Total Protein 7.8 Albumin 4.2 Globulin 3.6 H Albumin/Globulin Ratio 1.2 ABG Interpretation ABG results: 10/16/25 03:50 ABG pH 7.47 H ABG pCO2 38 ABG pO2 64 L ABG HCO3 27 H ABG O2 Saturation 93 ABG Base Excess 3 Quality Measures Quality Measures VTE prophylaxis and sepsis Current suspected stage: ruled out Possible source: pulmonary Blood cultures ordered: yes Antibiotic ordered: Yes Assessment & Plan Assessment Current Active Medications: Generic Name Dose Route Start Last Admin Trade Name Freq PRN Reason Stop Dose Admin Albuterol/Ipratropium 3 ml 10/19/25 09:45 10/20/25 14:12 Albuterol/Ipratropium (Duoneb) Rt Lisset 3 Ml Nebu INH 11/18/25 09:44 3 ml Q4HRRT KIKI Administration Docusate Sodium 100 mg 10/16/25 09:00 10/20/25 08:38 Docusate Sod Liqd 100 Mg/10 Ml Udc GT 11/15/25 08:59 100 mg BID KIKI Administration Protocol Enoxaparin Sodium 40 mg 10/16/25 09:00 10/20/25 08:38 Enoxaparin Sod Inj 40 Mg/0.4 Ml Syringe SC 10/30/25 08:59 40 mg QDAY KIKI Administration Guaifenesin 100 mg 10/16/25 03:00 10/19/25 00:01 Guaifenesin Syrup 200 Mg/10 Ml Udc PO 11/15/25 02:59 100 mg QID PRN Administration COUGH Protocol Lansoprazole 30 mg 10/20/25 09:00 10/20/25 08:38 Lansoprazole 30 Mg Tab. GT 11/19/25 08:59 30 mg QDAY KIKI Administration Protocol Levetiracetam 1,500 mg 10/16/25 09:00 10/20/25 08:38 Levetiracetam 250 Mg Tablet GT 11/15/25 08:59 1,500 mg BID KIKI Administration Levofloxacin 750 mg 10/21/25 09:00 Levofloxacin 250 Mg Tablet GT 10/25/25 08:59 QDAY KIKI Metoclopramide HCl 5 mg 10/16/25 18:00 10/20/25 11:48 Metoclopramide Inj 5 Mg/Ml Vial 2 Ml IVP 11/15/25 17:59 5 mg Q6HR KIKI Administration Protocol Metoprolol Succinate 50 mg 10/18/25 10:30 10/20/25 08:39 Metoprolol Succinate Xl 25 Mg Tabcr PO 11/17/25 10:29 50 mg QDAY KIKI Administration Midodrine 10 mg 10/17/25 16:37 10/19/25 00:00 Midodrine 5 Mg Tablet GT 11/16/25 20:59 10 mg HS PRN Administration Give if SBP < 110 Ondansetron HCl 4 mg 10/19/25 09:25 Ondansetron Odt 4 Mg Tabrap GT 11/18/25 09:24 Q6H PRN NAUSEA OR VOMITING Protocol Polyethylene Glycol 17 gm 10/16/25 09:00 10/20/25 08:38 Polyethylene Glycol 17 Gm Packet GT 11/15/25 08:59 17 gm QDAY KIKI Administration Valproic Acid 875 mg 10/16/25 09:00 10/20/25 08:37 Valproic Acid Syrup 250 Mg/5 Ml Udc PO 11/15/25 08:59 875 mg BID KIKI Administration Plan 40-year-old male with a history of cerebral palsy (nonverbal), developmental delay, seizures, hypertension, GERD, left eye blindness, and PEG tube dependence presents to the ED with SOB, cough, and fever, admitted for acute hypoxemic respiratory failure in setting of Pseudomonal pneumonia. #Acute hypoxic respiratory failure 2/2 #Pseudomonal pneumonia #Sepsis ruled out - Presents with SOB, cough, and subjective fever for the past 2 days. - History of recurrent pneumonia, with the most recent hospitalization in 10/10, where he required admission for pneumonia and sputum culture grew Proteus mirabilis. - Uses oxygen at home as needed. - Febrile on admission, T 101.9, required 6 L of oxygen however now on room air. - Pro-Juwan negative. - ABG showed pH 7.47, pO2 64. - Sputum culture 10/16 showed Pseudomonas. - Blood culture 10/16 was negative. - CT chest 10/19: Moderate vascular congestion. Left base pneumonia Plan * Levofloxacin 750 mg GT for 14 days (10/16-10/29/2025). * Guaifenesin and Duoneb as needed. * Chest physiotherapy. * Oxygen as needed. * Oronasopharyngeal suction Q6H. #Acute respiratory distress - CXR 10/19: Moderate vascular congestion. Left base pneumonia. Plan * CTA pending. * Continue NC. #Constipation - Large stool burden seen on CT. Plan * Lactulose 60mg. * Water enema. #Sinus tachycardia - Likely secondary to pain vs excess airway secretions and an inability to clear secretions vs rebound tachycardia. - Patient takes metoprolol 50 mg QD. Plan: * Resume home metoprolol 50 mg QD. * Oronasopharyngeal suction Q6H to help clear secretions. #Seizures #Cerebral palsy #Developmental delay - Patient is on Valproic acid and Keppra at home for seizures. Plan * Resumed Valproic acid and Keppra. * Seizure precautions. #GERD * Protonix daily. * Metoclopramide 5mg IV Q6HR. * Aspiration precaution. #Hypotension (resolved) - Per father patient takes Midodrine 10mg at home when BP is low. Plan * Resumed home Midodrine 10mg PRN, give if SBP < 110. #Thrombocytopenia (resolved) - Platelets on admission 136 --> 129 --> 133. - No concerns regarding bleeding at this time. - Likely reactive 2/2 acute illness. Plan * Monitor platelets with a.m. labs. #Hypophosphatemia (resolved) - Monitor and replete as necessary. #Lactic acidosis (resolved) - Likely reactive - LA on admission 3.0 with repeat 1.5 Health Maintenance: Diet: G-tube feeds GI prophylaxis: Protonix daily DVT prophylaxis: Lovenox Antibiotics: Levofloxacin 750 mg GT x 5 days CODE STATUS: Full Disposition: Telemetry Patient plan of care was discussed with the senior resident, Dr. Lombardi, and attending physician, . Jr Park, PGY-1
[2025-10-21] VITALS (11 sets, daily range): BP systolic 93–106; BP diastolic 63–75; PULSE 71–122; RESP 17–39; TEMP 36.1–36.9; O2SAT 95–100; BMI 25.4
[2025-10-21] MEDS: ALBUTEROL/IPRATROPIUM (Duoneb) RT SOL 3 ML NEBU INH ×4 (02:43→14:58)
[2025-10-21] MEDS: METOCLOPRAMIDE INJ 5 MG/ML VIAL 2 ML IVP (05:33)
[2025-10-21 05:54] LABS: Basophils # (Auto) 0.1 Thou/mm3 (0.0-0.2); Basophils % (Auto) 1 % (0-2.5); Eosinophils # (Auto) 0.0 Thou/mm3 (0.0-0.5); Eosinophils % (Auto) 0 % (0-10); Hematocrit 37.4 % (41.0-53.0); Hemoglobin 12.2 g/dL (13.5-16.0); Immature Granulocytes Auto 0.78 Thou/mm3 (0.00-0.00); Lymphocytes # (Auto) 3.6 Thou/mm3 (1.0-4.8); Lymphocytes % (Auto) 34 % (10-50); Mean Corpuscular HGB Conc 32.6 g/dl (31.0-37.0); Mean Corpuscular Hemoglobin 29.3 pg (25.0-35.0); Mean Corpuscular Volume 90 fL (80-100); Monocytes # (Auto) 1.1 Thou/mm3 (0.0-0.8); Monocytes % (Auto) 10 % (0-12); Neutrophils # (Auto) 5.1 Thou/mm3 (1.8-7.7); Neutrophils % (Auto) 48 % (37-80); Nucleated Red Blood Cell # 0.02 Thou/mm3 (0.00-0.00); Nucleated Red Blood Cell % 0 /100 WBC (0); Platelet Count 226 Thou/mm3 (140-440); RDW Standard Deviation 42.5 fL (35.1-43.9); Red Blood Count 4.17 Miln/mm3 (4.50-5.90); White Blood Count 10.7 Thou/mm3 (3.8-10.6)
[2025-10-21 06:31] LABS: Alanine Aminotransferase 8 U/L (10-49); Albumin, Serum 4.2 gm/dL (3.5-5.0); Albumin/Globulin Ratio 1.1 (1.2-2.2); Alkaline Phosphatase 84 U/L (46-116); Anion Gap 9 (7-16); Aspartate Amino Transferase 14 U/L (0-34); BUN/Creatinine Ratio 24 Ratio (12-20); Bilirubin,Total 0.3 mg/dL (0.3-1.2); Blood Urea Nitrogen 12 mg/dL (9-23); Calcium 9.4 mg/dL (8.3-10.6); Calcium (Corrected) 9.4 mg/dL (8.5-10.1); Carbon Dioxide 29.6 mMol/L (20.0-31.0); Chloride 101 mMol/L (98-107); Creatinine (Component) 0.5 mg/dL (0.6-1.3); Estimated Creatinine Clearance 156.9 mL/min (>60); Globulin 3.8 gm/dL (2.3-3.5); Glucose 104 mg/dL (74-106); Magnesium 2.1 mg/dL (1.6-2.6); Osmolality,Calculated 279 (275-295); Phosphorous 3.9 mg/dL (2.4-5.1); Potassium 3.7 mMol/L (3.4-5.1); Sodium 140 mMol/L (136-145); Total Protein 8.0 gm/dL (5.7-8.2); eGFR > 60 See Note
[2025-10-21] MEDS: POTASSIUM CHLORIDE 10% 20 MEQ/15 ML UDC 40 MEQ GT (09:16)
[2025-10-21] MEDS: DOCUSATE SOD LIQD 100 MG/10 ML UDC GT (09:17)
[2025-10-21] MEDS: FUROSEMIDE INJ 10 MG/ML 4ML VIAL 40 MG IVP (09:17)
[2025-10-21] MEDS: VALPROIC ACID SYRUP 250 MG/5 ML UDC 875 MG PO (09:17)
[2025-10-21] MEDS: LANSOPRAZOLE 30 MG TAB.RAP.DR GT (09:18)
[2025-10-21] MEDS: POLYETHYLENE GLYCOL 17 GM PACKET GT (09:18)
[2025-10-21] MEDS: ENOXAPARIN SOD INJ 40 MG/0.4 ML SYRINGE SC (09:18)
[2025-10-21] MEDS: METOPROLOL SUCCINATE XL 25 MG TABCR 50 MG PO (09:20)
--- NOTE | 2025-10-21 13:17 | PC.SS ---
SS attempted to setup transportation with [employer] [facility] but was unsuccessful. 1st patient portal representative, February disconnect call and 2nd patient portal representative, Mario explained pt requires PCS form from his health insurance singed by PCP. SS has sent IGOR, patient's facesheet, and ambulance form to [facility] using [facility]. SS spoke to Kristopher from [facility] who setup transportation for 4pm. Pt is requiring 2 liters of O2. SS met with dad who is aware and states pt utilizes home O2. Bedside nurse, Margarito is aware.
--- NOTE | 2025-10-21 14:07 | ESDS_ITS ---
<Statement entered by Shannen Garibay MD - 10/30/25 09:20> I reviewed above note and agree with findings and plans. I have also personally examined the patient with medicine team and went over assessment and plan with medical team including international editorial producer and resident physician. Planned Discharge Date 10/21/25 DS: Providers Provider Date of admission: 10/16/25 02:54 Primary care physician: Balbir Castillo MD Admitting Provider: Kieran Clemens MD Attending Provider on Admission: Shannen Garibay MD Consults: 10/16/25 03:00 Referral Registered Dietitian Routine Comment: For G tube feeds Attending Provider on DC: Shannen Garibay MD Discharging Provider: Jr Park DO Anticipated date of discharge: 10/21/25 DS: Diagnosis Problem List Completed Was Problem List Reviewed/Reconciled?: Yes Hospital Course Hospital Course Hospital course: 40-year-old male with cerebral palsy, developmental delay, seizure disorder, and PEG dependence who presented with shortness of breath, cough, and fever. He was hypoxic and febrile on admission and was treated for acute hypoxic respiratory failure due to pneumonia. Initial antibiotics were narrowed after sputum cultures grew Pseudomonas sensitive to levofloxacin, and therapy was extended to a full fourteen-day course. Blood cultures remained negative. He initially required increased oxygen support and frequent suctioning due to copious secretions. Chest physiotherapy, guaifenesin, and nebulizers were used to assist airway clearance. CT imaging showed left lower-lobe pneumonia and vascular congestion without worsening disease, and CTA ruled out pulmonary embolism. Respiratory status gradually improved, and he stabilized on low-flow oxygen. Tachycardia improved after restarting home metoprolol, and episodes of soft blood pressure responded to fluids and PRN midodrine. Constipation with large stool burden was treated successfully with lactulose and enemas. Transient thrombocytopenia, hypophosphatemia, and lactic acidosis resolved during the admission. Home antiepileptics were continued without seizures. By discharge, the patient was afebrile, hemodynamically stable, tolerating tube feeds, and at his neurologic baseline with improved respiratory status. Patient is medically and physically stable for discharge. Diagnosis #Acute hypoxic respiratory failure secondary to pseudomonal pneumonia #Pseudomonal community-acquired pneumonia #Constipation with large stool burden #Sinus tachycardia #Hypotension #Thrombocytopenia #Hypophosphatemia #Lactic acidosis?resolved #Seizure disorder #PEG tube dependence Discharge Plan: Follow up with pcp within 1 week of discharge Please take medications as prescribed you have been prescribed 3 more days of antibiotics Continue with levofloxacin for an additional 9 days. Should any symptoms recur or worsen patient is instructed to return to the ED. Case discussed with my attending Dr. Garibay. Jr Park DO PGY 1 Status at Discharge Overall status at discharge: patient is back to baseline Time Spent with Patient Time attestation: Total time spent providing and/or coordinating discharge services: Time spent: Greater than 30 minutes Exam Vital Signs Temp Pulse Resp BP Pulse Ox O2 Del Method O2 Flow Rate 97.0 F 90 18 106/75 97 Nasal Cannula 2 10/21/25 12:00 10/21/25 12:10/21/25 12:10/21/25 12:00 10/21/25 12:00 10/21/25 12:10/21/25 12:00 Narrative Exam General: Sleeping comfortably. No acute distress. Nonverbal at baseline. 2L NC. HEENT: Normocephalic, atraumatic, mucous membranes dry, bilateral sclera anicteric, left eye blindness. Heart: Regular rate and rhythm, no murmurs. Non-labored respirations, symmetric chest rise, no use of accessory muscles. Lungs: Bilateral inspiratory crackles and rhonchi on auscultation. Abdomen: Soft, nondistended, slight tenderness on light palpation. No guarding or rebound tenderness. PEG tube in place. Neurologic: Alert and oriented x3, no gross neurological deficit, and patient able to move all 4 extremities. Extremities: No edema. Skin: No rash or ecchymoses. Discharge Plan Plan Patient Disposition: HOME (Self Care) Patient condition on transfer: Stable Care Plan Goals: Follow up with pcp within 1 week of discharge Please take medications as prescribed you have been prescribed 3 more days of antibiotics Continue with levofloxacin for an additional 9 days. Should any symptoms recur or worsen patient is instructed to return to the ED. Prescriptions/Referrals Prescriptions/Med Rec: New levofloxacin 750 mg tablet 750 mg PO QDAY 9 Days Qty: 9 0RF Continued famotidine [Pepcid] 20 MG tablet 20 mg feeding tube BID Qty: 0 Patient Comments: TO SUPPRESS GASTRIC ACID SECRETION glycopyrrolate [Robinul Forte] 2 MG tablet 2 mg feeding tube TID Qty: 0 levetiracetam [Keppra] 100 MG/ML solution 1,500 mg feeding tube BID Qty: 0 valproic acid (as sodium salt) [valproic acid] 250 MG/5 ML solution 875 mg G-tube BID Qty: 600 lactulose [Constulose] 10 gram/15 mL solution 15 ml feeding tube QDAY Patient Comments: TAKE 15 ML BY MOUTH ONCE DAILY FOR CONSTIPATION potassium chloride 8 mEq capsule, extended release 8 meq feeding tube .Q12pm metoprolol succinate 50 mg tablet extended release 24 hr 50 mg PO QDAY Patient Comments: TOME 1 TABLETA POR V A ORAL TODOS LOS D furosemide 20 mg tablet 20 mg feeding tube PRN Patient Comments: TOME 1 TABLETA POR V A ORAL TODOS LOS D A MEDIODIA midodrine 10 mg tablet 10 mg feeding tube HS PRN (Reason: LOW BLOOD PRESSURE ) Patient Comments: TAKE 1 TABLET BY MOUTH ONCE DAILY AT BEDTIME guaifenesin 100 mg/5 mL Liquid 100 mg G-tube PRN PRN (Reason: Congestion) Qty: 118 0RF Referrals: Balbir Castillo MD [Primary Care Provider, Family Practice] Patient/Caregiver Discharge Instructions Print Language: Faroese Stand Alone Forms: Jayshree Award Info., Patient Portal Info Letter Discharge Order Discharge Orders: Discharge (Routine); Ordered 10/21/25 Ordered By: Breann Lombardi Quality Discharge Quality Measures VTE prophylaxis
== END 2025-10-21 16:29 | disposition home or self-care (01) | DRG 177 ==
LOC: SERX 10-16 02:02 → SERHOLD 10-16 03:09 → S2SX 10-16 12:47 → S3SX 10-18 08:55
PROVIDERS: Admitting Provider Student in an Organized Health Care Education/Training Program; Emergency Provider Emergency Medicine; PCP Family Medicine; Visit Provider Internal Medicine
DX: J15.1 Pneumonia due to Pseudomonas (principal); J96.01 Acute respiratory failure with hypoxia; E87.20 Acidosis, unspecified; Z16.20 Resistance to unspecified antibiotic; H54.62 Unqualified visual loss, left eye, normal vision right eye; K21.9 Gastro-esophageal reflux disease without esophagitis; G40.909 Epilepsy, unspecified, not intractable, without status epilepticus; I95.9 Hypotension, unspecified; I10 Essential (primary) hypertension; K59.00 Constipation, unspecified; G80.9 Cerebral palsy, unspecified; Z93.1 Gastrostomy status; E83.39 Other disorders of phosphorus metabolism; D69.6 Thrombocytopenia, unspecified; Z87.01 Personal history of pneumonia (recurrent); Z79.899 Other long term (current) drug therapy
CPT/HCPCS: 36415; 36600; 71045; 71260; 71275; 80053; 80307; 81001; 82803; 83605; 83615; 83690; 83735; 83880; 84100; 84145; 84484; 85025; 85610; 85730; 87040; 87077; 87186; 87205; 87502; 87811; 93005; 93225; 94640; 94664; 94667; 96365; 96366; 99285; A4649; A9270; J0131; J1650; J1938; J2470; J2543; J2765; J3373; J7050; J7120; J7999; Q9967